=== PATIENT | female | born 1950 | race Caucasian/White ===

== ENCOUNTER 2019-06-13 11:03 | Day surgery (SDC) | payer MEDICARE, SELFPAY ==
[2019-06-10 11:01] VITALS: BMI 26.1
[2019-06-13 11:33] VITALS: BP 147/88; PULSE 79; RESP 18; TEMP 36.5; O2SAT 99
[2019-06-13] MEDS: sodium chloride 0.9% 1,000 ML 30 ML (11:42)
--- NOTE | 2019-06-13 12:28 | ANES.PREANES ---
Pre-Anesthetic Assessment Pre-Anesthetic Assessment: Height/Weight: Height 1.68 m Weight 73.482 kg Temp Pulse Resp BP Pulse Ox 97.7 F 79 18 147/88 99 06/13/19 11:33 06/13/19 11:33 06/13/19 11:33 06/13/19 11:33 06/13/19 11:33 Proposed Procedure: Operation Date: 06/13/19 12:00 Proposed Procedures p Colonoscopy(Not Applicable) - Mark Crandall MD Last intake: Intake Last Liquid Date 06/12/19 Last Liquid Time 20:00 Last Solid Date 06/11/19 Last Solid Time 17:00 Social: Social History: Tobacco Packs per day: 1/2 Exam: Pre-Anes Outpt Exam: alert, oriented x 3, clear to auscultation bilaterally and regular rate & rhythm Airway: Submandibular: WNL Cervical ROM: WNL MP: 2 Dentition: False History/ROS: No significant history except as noted Pulmonary: Pulmonary: None reported CV/HEM: CV/HEM: None reported : : None reported Hepatic: Hepatic: None reported GI: GI: None reported Metabolic: Metabolic: None reported Musc/skel: Musc/skel: Fibromyalgia and OA/DJD Comments: hip pain Neuropsych: Neuropsych: Anxiety Anesthetic Plan: ASA status: II Anesthesia: Anesthesia Evaluation and MAC Risk of > 500 ml blood loss (7ml/kg in children): No PFSH Anesthesia PFSH: Medical History Occult blood positive stool (Acute) Plan of care; After thorough history and physical examination and reviewing the chart, plan to perform screening colonoscopy in the GI lab All questions have been answered and all concerns have been addressed to patient's satisfaction. Informed consent per chart were,Indications, risks, benefits, and alternatives were all discussed with the patient and did agree to proceed. Verbal and written Instructions were given to the patient for colonoscopy prep Social History Smoking and tobacco status: current every day smoker cigarettes Packs smoked per day: 1 Years cigarettes smoked: 30 Quit status (tobacco): not considering quitting Second hand smoke exposure: Yes Smoking risk assessment/counseling performed?: No Data Anesthesia Cardiac Studies: No Data to Display
[2019-06-13 12:55] VITALS: BP 145/69; PULSE 79; RESP 16; TEMP 36.1; O2SAT 99
[2019-06-13 13:01] VITALS: BP 157/65; PULSE 64; RESP 18; O2SAT 100
--- NOTE | 2019-06-13 13:18 | ANE.PACU ---
 Inpatient post-anesthesia follow up: Vital signs: Temperature 97.0 F Pulse Rate [Left A pical] 64 Respiratory Rate 18 Blood Pressure [Le ft Arm] 157/65 Pulse Oximetry 100 Oxygen Delivery Me thod Room Air Oxygen Flow Rate Fraction of Inspir ed Oxygen
--- NOTE | 2019-06-13 13:28 | PM.HPUD ---
H&P update H&P Update: DATE OF SURGERY/PROCEDURE: 06/13/19 DATE H&P PERFORMED: 06/13/19 H&P UPDATE INFORMATION: H&P to be scanned into chart (04/18/19) PLANNED PROCEDURE: Operation Date: 06/13/19 12:00 Proposed Procedures p Colonoscopy(Not Applicable) - Mark Crandall MD Conscious Sedation: Patient reassessed prior to sedation, with no change noted: Yes PHYSICAL EXAM: oriented x 3 Full H&P HPI: HPI: This is a pleasant 69 years old female patient with history of occult blood in stool was referred to mt for screening colonoscopy. Perinent History: Medical/Surgical History: Medical History (Updated 06/13/19 @ 12:14 by Mark Crandall MD) Occult blood positive stool (Acute) Plan of care; After thorough history and physical examination and reviewing the chart, plan to perform screening colonoscopy in the GI lab All questions have been answered and all concerns have been addressed to patient's satisfaction. Informed consent per chart were,Indications, risks, benefits, and alternatives were all discussed with the patient and did agree to proceed. Verbal and written Instructions were given to the patient for colonoscopy prep Social History: Social History Smoking and tobacco status: current every day smoker cigarettes Packs smoked per day: 1 Years cigarettes smoked: 30 Quit status (tobacco): not considering quitting Second hand smoke exposure: Yes Smoking risk assessment/counseling performed?: No Pertinent Exam Findings: PHYSICAL EXAM: oriented x 3 OTHER PERTINENT EXAM FINDINGS: Patient is conscious alert oriented X3 Abdomen nontender nondistended soft no organomegaly guarding or rigidity/no signs of peritonitis Extremities no cyanosis no clubbing no edema A&P Assessment and plan (1) Occult blood positive stool: Status: Acute Code(s): R19.5 - Other fecal abnormalities
[2019-06-13 13:35] VITALS: RESP 16; O2SAT 97
[2019-06-13] MEDS: morphine 4 mg/mL SDV 1 mL IVP (13:35)
== END 2019-06-13 13:03 | disposition home or self-care (01) ==
PROVIDERS: Family Provider Registered Nurse; PCP Registered Nurse; Visit Provider Surgery
PROC: 0DJD8ZZ Inspection of Lower Intestinal Tract, Via Natural or Artificial Opening Endoscopic (ICD-10-PCS; CPT 45378; principal; 2019-06-13 12:00)
DX: Z12.11 Encounter for screening for malignant neoplasm of colon (principal); R19.5 Other fecal abnormalities; K57.30 Diverticulosis of large intestine without perforation or abscess without bleeding; D12.3 Benign neoplasm of transverse colon; M19.90 Unspecified osteoarthritis, unspecified site; F17.210 Nicotine dependence, cigarettes, uncomplicated; M79.7 Fibromyalgia; G47.00 Insomnia, unspecified
CPT/HCPCS: 45385; 88305; J2270; J2704; J7030

== ENCOUNTER → 2019-12-16 10:43 | Outpatient (BNVA) | payer MEDICARE, SELFPAY | PROVIDERS: Family Provider Registered Nurse; PCP Registered Nurse; Visit Provider Registered Nurse | DX: G47.00 Insomnia, unspecified (principal); E55.9 Vitamin D deficiency, unspecified; I10 Essential (primary) hypertension; E53.8 Deficiency of other specified B group vitamins | CPT/HCPCS: 82306; 82607; 85025 ==

== ENCOUNTER 2020-05-18 16:08 | Observation (INO) | payer MEDICARE, SELFPAY ==
[2020-05-18] VITALS (9 sets, daily range): BP systolic 116–209; BP diastolic 58–106; PULSE 65–84; RESP 14–18; TEMP 36.4–36.6; O2SAT 93–99; BMI 26.6
--- NOTE | 2020-05-18 16:37 | ECG_ITS ---
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 Measurements Intervals [place] Rate: 75 P: 56 RI: 141 QRS: 32 QRSD: 82 T: -4 QT: 388 QTc: 435 Interpretive Statements SINUS RHYTHM WITH SINUS ARRHYTHMIA POSSIBLE LEFT ATRIAL ENLARGEMENT [-0.1mV P WAVE IN V1/V2] NONSPECIFIC ST & T-WAVE ABNORMALITY No previous ECG available for comparison Electronically Signed On 05-18-2020 20:54:56 MANUFACTURING PLANT TECHNICIAN by Corona Gagnon M.D. [id number]
--- NOTE | 2020-05-18 16:37 | CTR_ITS ---
PROCEDURE INFORMATION: Exam: CT Head Without Contrast Exam date and time: 05/18/2020 5:59 PM Age: 70 years old Clinical indication: Altered mental status/memory loss and dizziness; Confusion or disorientation; Patient HX: C/O dizziness and confusion PT is hypertensive; Additional info: Dizzy, confused TECHNIQUE: Imaging protocol: Computed tomography of the head without contrast. Radiation optimization: All CT scans at this facility use at least one of these dose optimization techniques: automated exposure control; mA and/or kV adjustment per patient size (includes targeted exams where dose is matched to clinical indication); or iterative reconstruction. COMPARISON: No relevant prior studies available. RADIATION DOSE METRICS: Total DLP (mGy-cm): 723.21 FINDINGS: Brain: No evidence of active or acute intracranial pathologic process, hemorrhage, or trauma. No visible evidence of diffuse cerebral edema or generalized demyelination. No mass effect. No midline shift. No visible evidence of PRES. Cerebral ventricles: No ventriculomegaly. Bones/joints: Unremarkable. No acute fracture. Paranasal sinuses: Mild sphenoid sinusitis. Mastoid air cells: Visualized mastoid air cells are well aerated. Soft tissues: Unremarkable. CT/CT head wo con* [id number] IMPRESSION: 1. No evidence of active or acute intracranial pathologic process, hemorrhage, or trauma. 2. Mild sphenoid sinusitis. Radiation Dose CTDIVOL = (mGy): DLP = 723.21 (mGy-cm)
--- NOTE | 2020-05-18 16:53 | W.ED.DIZZY ---
HPI - Dizziness General: Chief Complaint: Dizziness Stated Complaint: DIZZY, NEURO SYMPTOMS Time Seen by Provider: 05/18/20 16:34 History of Present Illness: HPI Narrative: This patient is a 70 year old female presenting with abrupt onset on dizziness, confusion, trouble walking, trouble remembering since about 10 am this morning. She denies headaches, fever, nausea, chest pain or lightheadedness. the symptoms have been fairly constant since they started. 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 She was not able to remember phone numbers that she normally would know. She did not notice any difficulty with coordination. She is having trouble walking and her daughter who is with her says she is walking like she is drunk. Falling more to the left. Patient denies stoke, CAD, HTN although she is hypertensive today in the ED. She take vit D and ambien as her only prescription medications. Neither of them are new scripts. She wore a holter monitor for a while about 7 years ago when she had episodes of passing out - but nothing was found and the episodes stopped. Review of prior records shows that she has had elevated BPs. She had an office visit [facility] PCP in December with elevated BP and her doctor wanted her to monitor it at home. Patient is also a smoker. MD elicited complaint: dizziness and difficulty walking Onset (ago): hour(s) (7) Timing: sudden onset Severity: moderate Description: room spinning , off-balance and difficulty walking History of similar symptoms: No Exacerbating factors: movement/ambulation Relieving factors: nothing Associated symptoms: Reports other; Denies chest pain, chills, malaise, nausea or vomiting Associated neuro symptoms: Reports confusion and gait changes Review of Systems General: Reports: 10 or more systems reviewed and unremarkable except in HPI and below Const: Denies: fever(s), chills, fatigue or malaise Eyes: Denies: change in vision ENMT: Denies: odynophagia Card: Denies: chest pain or swelling of feet/ankles Resp: Denies: dyspnea, productive cough or non-productive cough GI: Denies: abdominal pain, nausea or vomiting : Denies: flank pain or difficulty voiding Musc: Denies: neck pain or back pain Skin/Breast: Denies: rash Neuro: Reports: confusion Craig/Lymph: Denies: easy bruising or easy bleeding PFSH ED PFSH: Medical History Essential hypertension Fibromyalgia Hyperlipidemia Hypertension Insomnia Occult blood positive stool Vitamin B 12 deficiency Vitamin D deficiency Surgical History History of breast lump/mass excision History of colonoscopy with polypectomy (~06/2019) Hx of appendectomy Family History Denies family history of Anesthesia complication Bleeding disorder Social History Smoking and tobacco status: current every day smoker cigarettes Packs smoked per day: 1 Years cigarettes smoked: 30 Quit status (tobacco): not considering quitting Second hand smoke exposure: Yes Smoking risk assessment/counseling performed?: No Alcohol intake: never Adopted: No Caregiver/support person: Yes Lives independently: Yes Household members: spouse Housing: House Marital status: Highest education level completed: High School Graduate service: No Current occupational status: retired Current occupational exposures/hazards: No Pets and animals: Yes History of recent travel: Yes Sexually active: Yes Current gender identity: Female Laila/Temple: Rastafarian Special laila needs: No Agree to transfusion: No Financial difficulty paying for basics: Decline to Answer Physical Exam Const: COMMON NORMALS: no acute distress, patient oriented x3, no limitations and alert GENERAL APPEARANCE: cooperative and comfortable HENMT: HEAD & SCALP: normal to inspection FACE & SINUS: normal facial exam Eye: GENERAL EYE: appearance normal, both eyes and all related structures Neck/C-Spine: COMMON NORMALS: supple, no meningeal signs and no JVD Chest: COMMONS NORMALS: normal inspection of the chest Resp: COMMON NORMALS: normal respiratory effort, No use of accessory muscles and clear to auscultation bilaterally AUSCULTATION: clear to auscultation bilaterally Cardio: COMMON NORMALS: no JVD, regular rate, regular rhythm and No murmurs present (Cardio) RATE: regular rate RHYTHM: regular rhythm GI: COMMON NORMALS: Normal to inspection, nondistended, normoactive bowel sounds present, Soft to palpation and non-tender INSPECTION: Yes normal to inspection AUSCULTATION: Yes normoactive bowel sounds PALPATION: Yes Soft to palpation Back/Pelvis: COMMON NORMALS: thoracic and lumbar spine normal to inspection Extremity: COMMON NORMALS: normal to inspection Neuro: COMMON NORMALS: patient oriented x3 and moves all extremities SENSORIUM/ORIENTATION: Yes alert MENINGEAL SIGNS: Yes no meningeal signs COORDINATION/BALANCE: sways with eyes open, Romberg test positive and other (unable to stand without assistance - falls backwards) SPEECH: Other neuro speech findings (rambling a bit) GAIT: Yes Other gait observations present (unable ) Psych: COMMON NORMALS: mental status grossly normal, cooperative and normal affect Skin: COMMON NORMALS: no rashes or lesions noted and turgor normal GENERAL SKIN EXAM: no rashes or lesions noted and turgor normal Course ED course: Patient with marked ataxia -concerning for cerebellar stroke. CT neg. Many hours out of the window for TPA. BP also quite high and not improved with several doses of labetolol. Hydralazine ordered. Patient reluctant to stay in the hospital, but due to concerns for BP management, stroke and inability to ambulate safely, she eventually agreed to stay. Admit to hospitalist. Vital Signs: Vital signs: Vital Signs Temperature 97.6 F 05/18/20 21:37 Pulse Rate 72 05/18/20 23:28 Respiratory Rate 18 05/18/20 21:37 Blood Pressure 116/58 05/18/20 21:37 Pulse Oximetry 95 05/18/20 21:37 MDM - Dizziness Lab Data: Labs: Lab Results 05/18/20 05/18/20 05/18/20 Range/Units 16:39 17:14 17:14 WBC 8.4 (4.0-10.0) 10^3/ uL RBC 4.58 (4.1-5.3) 10^6/u L Hgb 13.2 (11.5-15.3) g/dL Hct 41.9 (37.0-47.0) % MCV 91.5 (81-99) fL MCH 28.8 (28.0-34.0) pg MCHC 31.5 (30.0-36.0) g/dL RDW 13.3 (12.1-15.1) % Plt Count 292 (130-400) 10^3/c mm MPV 11.7 H (7.4-10.4) fL Neut % (Auto) 71.8 % Lymph % (Auto) 20.8 % Duchesne % (Auto) 5.5 % Eos % (Auto) 1.1 % Baso % (Auto) 0.6 % Neut # (Auto) 6.01 (1.8-7.7) 10^3/u L Lymph # (Auto) 1.7 (0.8-4.8) 10^3/u L Duchesne # (Auto) 0.5 (0.2-0.9) 10^3/u L Eos # (Auto) 0.1 (0.0-0.8) 10^3/u L Baso # (Auto) 0.1 (0.0-0.1) 10^3/u L Nucleated RBC % (a uto) 0 % Nucleated RBCs # 0.0 /100WBC Sodium 140 (136-145) mmol/L Potassium 3.9 (3.5-5.1) mmol/L Chloride 105 (98-107) mmol/L Carbon Dioxide 26 (22-29) mmol/L Anion Gap 12.9 (5-19) BUN 9 (8-23) mg/dL Creatinine 0.6 (0.5-0.9) mg/dL GFR Calculation 99.4 (90-130) mL/min Glucose 95 (65-115) mg/dL Calculated Osmolal ity 288 (285-295) mOsm/k g Calcium 9.5 (8.5-10.5) mg/dL Total Bilirubin 0.3 (0.15-1.2) mg/dL AST 13 (0-32) U/L ALT 8 (0-33) U/L Alkaline Phosphata se 87 (35-105) IU/L Troponin T Baselin e (0-10) ng/L Troponin T [address] [facility] [place] (0-10) ng/L Delta Troponin T (0-10) ABS# Total Protein 7.5 (6.6-8.7) g/dL Albumin 4.1 (3.5-5.2) g/dL Globulin 3.4 (1.3-4.6) g/dL TSH (0.27-4.20) uIU/ mL Urine Color Colorless (Yellow) Urine Appearance Clear (CLEAR) Urine pH 7 (5-7) Ur Specific Gravit y 1.005 (1.005-1.030) Urine Protein Neg (Negative) Urine Glucose (UA) Norm (Normal) Urine Ketones Negative (Negative) Urine Blood Neg (Negative) Urine Nitrate Negative (Negative) Urine Bilirubin Neg (Negative) Urine Urobilinogen Norm (Negative) mg/dL Ur Leukocyte Yelena ase Negative (Negative) 05/18/20 05/18/20 05/18/20 Range/Units 17:14 17:14 20:01 WBC (4.0-10.0) 10^3/ uL RBC (4.1-5.3) 10^6/u L Hgb (11.5-15.3) g/dL Hct (37.0-47.0) % MCV (81-99) fL MCH (28.0-34.0) pg MCHC (30.0-36.0) g/dL RDW (12.1-15.1) % Plt Count (130-400) 10^3/c mm MPV (7.4-10.4) fL Neut % (Auto) % Lymph % (Auto) % Duchesne % (Auto) % Eos % (Auto) % Baso % (Auto) % Neut # (Auto) (1.8-7.7) 10^3/u L Lymph # (Auto) (0.8-4.8) 10^3/u L Duchesne # (Auto) (0.2-0.9) 10^3/u L Eos # (Auto) (0.0-0.8) 10^3/u L Baso # (Auto) (0.0-0.1) 10^3/u L Nucleated RBC % (a uto) % Nucleated RBCs # /100WBC Sodium (136-145) mmol/L Potassium (3.5-5.1) mmol/L Chloride (98-107) mmol/L Carbon Dioxide (22-29) mmol/L Anion Gap (5-19) BUN (8-23) mg/dL Creatinine (0.5-0.9) mg/dL GFR Calculation (90-130) mL/min Glucose (65-115) mg/dL Calculated Osmolal ity (285-295) mOsm/k g Calcium (8.5-10.5) mg/dL Total Bilirubin (0.15-1.2) mg/dL AST (0-32) U/L ALT (0-33) U/L Alkaline Phosphata se (35-105) IU/L Troponin T Baselin e 6 (0-10) ng/L Troponin T [address] [facility] [place] 6.00 (0-10) ng/L Delta Troponin T 0 (0-10) ABS# Total Protein (6.6-8.7) g/dL Albumin (3.5-5.2) g/dL Globulin (1.3-4.6) g/dL TSH 1.25 (0.27-4.20) uIU/ mL Urine Color (Yellow) Urine Appearance (CLEAR) Urine pH (5-7) Ur Specific Gravit y (1.005-1.030) Urine Protein (Negative) Urine Glucose (UA) (Normal) Urine Ketones (Negative) Urine Blood (Negative) Urine Nitrate (Negative) Urine Bilirubin (Negative) Urine Urobilinogen (Negative) mg/dL Ur Leukocyte Yelena ase (Negative) Discharge Plan Discharge Patient Disposition: Placed in Observation Admit Provider: Silverio Hopson Clinical Impression: Dizziness Hypertension Qualifiers: Hypertension type: unspecified Qualified Code(s): I10 - Essential (primary) hypertension Coding Level of Care Code ED Info Specialist for Chg Fwd Exam Comprehensive
[2020-05-18] MEDS: sodium chloride 0.9% 1,000 ML 999 ML IV (17:23)
[2020-05-18] MEDS: labetalol 5 mg/mL SDV 20mL 10 MG IVP ×2 (17:24→18:29)
[2020-05-18 17:27] LABS: Basophils # 0.1 10^3/uL (0.0-0.1); Basophils % 0.6 %; Eosinophils # 0.1 10^3/uL (0.0-0.8); Eosinophils % 1.1 %; Hematocrit 41.9 % (37.0-47.0); Hemoglobin 13.2 g/dL (11.5-15.3); Lymphocytes # 1.7 10^3/uL (0.8-4.8); Lymphocytes % 20.8 %; Mean Corpuscular HGB Conc 31.5 g/dL (30.0-36.0); Mean Corpuscular Hemoglobin 28.8 pg (28.0-34.0); Mean Corpuscular Volume 91.5 fL (81-99); Mean Platelet Volume 11.7 fL (7.4-10.4); Monocytes # 0.5 10^3/uL (0.2-0.9); Monocytes % 5.5 %; Neutrophils # 6.01 10^3/uL (1.8-7.7); Neutrophils % 71.8 %; Nucleated Red Blood Cells % 0 %; Platelet Count 292 10^3/cmm (130-400); Red Blood Count 4.58 10^6/uL (4.1-5.3); Red Cell Distribution Width 13.3 % (12.1-15.1); White Blood Count 8.4 10^3/uL (4.0-10.0)
[2020-05-18 17:44] LABS: Add Urine Microscopic? NO; Bilirubin Urine Neg (Negative); Blood Urine Neg (Negative); Glucose Urine UA Norm (Normal); Ketones Urine Negative (Negative); Leukocyte Esterase Urine Negative (Negative); Nitrate Urine Negative (Negative); Protein Urine Neg (Negative); Specific Gravity, Urine 1.005 (1.005-1.030); Urine Appearance Clear (CLEAR); Urine Color Colorless (Yellow); Urobilinogen Urine Norm (Negative); pH Urine 7 (5-7)
[2020-05-18 17:48] LABS: Alanine Aminotransferase 8 U/L (0-33); Albumin Level 4.1 g/dL (3.5-5.2); Alkaline Phosphatase 87 IU/L (35-105); Anion Gap 12.9 (5-19); Aspartate Amino Transferase 13 U/L (0-32); Blood Urea Nitrogen 9 mg/dL (8-23); Calcium 9.5 mg/dL (8.5-10.5); Carbon Dioxide 26 mmol/L (22-29); Chloride 105 mmol/L (98-107); Globulin 3.4 g/dL (1.3-4.6); Glomerular Filtration Rate 99.4 mL/min (90-130); Glucose 95 mg/dL (65-115); Osmolality Calculated 288 mOsm/kg (285-295); Potassium 3.9 mmol/L (3.5-5.1); Sodium 140 mmol/L (136-145); Total Bilirubin 0.3 mg/dL (0.15-1.2); Total Protein 7.5 g/dL (6.6-8.7); Troponin(5th) Baseline 6 ng/L (0-10)
--- NOTE | 2020-05-18 18:37 | ECG_ITS ---
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 Measurements Intervals [place] Rate: 72 P: 60 MN: 146 QRS: 37 QRSD: 86 T: 5 QT: 430 QTc: 473 Interpretive Statements SINUS RHYTHM WITH OCCASIONAL VENTRICULAR PREMATURE COMPLEXES POSSIBLE LEFT ATRIAL ENLARGEMENT [-0.1mV P WAVE IN V1/V2] NONSPECIFIC T-WAVE ABNORMALITY Compared to ECG 05/18/2020 16:47:32 Ventricular premature complex(es) now present Sinus arrhythmia no longer present T-wave abnormality still present Electronically Signed On 05-18-2020 20:59:00 VIDEO TAPE DUPLICATOR by Corona Gagnon M.D. [email or web address]/[id number]
[2020-05-18] MEDS: labetalol 5 mg/mL SDV 20mL 20 MG IVP (19:31)
[2020-05-18 20:24] LABS: Troponin 5 2HR Delta 0 ABS# (0-10)
[2020-05-18] MEDS: hyDRALAzine 20 mg/mL INJ 1 mL IVP (20:30)
--- NOTE | 2020-05-18 20:32 | PM.HP ---
Providers/Chief Complaint Primary Care Provider: TRACY Villa Chief Complaint: DIZZY, NEURO SYMPTOMS History of Present Illness Indigo Rosenberg is a 70 year old female who has history of B12 deficiency, hypertension, fibromyalgia, nicotine abuse presented today with chief complaint of dizziness. Patient works at [employer], he is stating that around 10 AM she started feeling dizziness which she is describing as lightheadedness she did not notice any surroundings of her periphery. She did not notice any nausea, vomiting, she does state that few days back she noticed some palpitations when she was trying to get out of bed, previous Holter monitor did not show any tachyarrhythmia. 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 She did not lost consciousness, she did not notice any diaphoresis, fever, chills, headache, worsening of her vision. She described her symptoms as floating with eyes open and swimming with eyes closed . No recent flulike symptoms however she has history of sinus infection. Diagnosis in the ER revealed hypertension, she received antihypertensive regimen, labetalol 40 mg hydralazine 20 mg and 1 L normal saline bolus. NIH 0 At the time of my evaluation Romberg sign positive, Kathya-Hallpike maneuver negative, no cerebellar signs, no signs of stroke, patient agreed for MRI brain evaluation to rule out cerebellar stroke Review of Systems Const: Reports: chills; Denies: fever(s) Eyes: Denies: change in vision ENMT: Denies: throat pain Card: Reports: palpitations and pre-syncope Resp: Denies: dyspnea GI: Denies: abdominal pain : Denies: flank pain Musc: Reports: neck pain Skin/Breast: Denies: rash Neuro: Denies: headache(s) Psych: Denies: anxiety Endo: Denies: polyuria Craig/Lymph: Denies: easy bruising All/Imm: Denies: urticaria Medications/Allergies Home Medications Medication Instructions Recorded Confirmed Last Taken Type alendronate [Fosamax] See Rx Instructions .ROUTE .COMPLEX 06/10/19 05/18/20 06/07/19 History ergocalciferol (vitamin D2) 1,250 See Rx Instructions .ROUTE 12/19/19 05/18/20 05/15/20 Rx mcg (50,000 unit) capsule .COMPLEX #12 cap Vitamin C 1 tab PO DAILY@0800 05/18/20 05/18/20 05/18/20 History zinc 1 tab PO DAILY@0800 05/18/20 05/18/20 05/18/20 History zolpidem 10 mg PO BEDTIME@00 05/18/20 05/18/20 05/18/20 History Allergies Allergy/AdvReac Type Severity Reaction Status Date / Time No Known Allergies Allergy Verified 12/16/19 10:27 PFSH Acute PFSH: Medical History Essential hypertension Fibromyalgia Hyperlipidemia Hypertension Insomnia Occult blood positive stool Vitamin B 12 deficiency Vitamin D deficiency Surgical History History of breast lump/mass excision History of colonoscopy with polypectomy (~06/2019) Hx of appendectomy Family History Denies family history of Anesthesia complication Bleeding disorder Social History Smoking and tobacco status: current every day smoker cigarettes Packs smoked per day: 1 Years cigarettes smoked: 30 Quit status (tobacco): not considering quitting Second hand smoke exposure: Yes Smoking risk assessment/counseling performed?: No Alcohol intake: never Adopted: No Caregiver/support person: Yes Lives independently: Yes Household members: spouse Housing: House Marital status: Highest education level completed: High School Graduate service: No Current occupational status: retired Current occupational exposures/hazards: No Pets and animals: Yes History of recent travel: Yes Sexually active: Yes Current gender identity: Female Laila/Pentecostal: Bahai Special laila needs: No Agree to transfusion: No Financial difficulty paying for basics: Decline to Answer Vitals/I&O/Wt Last Vital Signs Temp 97.8 F 05/18/20 16:20 Pulse 65 05/18/20 19:53 Resp 18 05/18/20 19:53 BP 183/86 05/18/20 19:53 Pulse Ox 95 05/18/20 19:53 05/18/20 05/18/20 05/18/20 06:59 14:59 22:59 Intake Total 1000 / 1000 Balance 1000 / 1000 Weight last 48 hrs Weight 74.843 kg Physical Exam Narrative: EXAM NARRATIVE: Very pleasant elderly female who appears more than stated age Clinically looks euvolemic No active distress noted NIH 0 No cerebellar signs Romberg sign positive Exline-Hallpike maneuver negative No facial asymmetry or neurological deficit noted EOMI, PERRLA Awake alert oriented x3 GCS 15 S1, S2 do not appreciate any murmur Bilateral breath sounds without any rhonchi or crackles Abdomen soft nontender bowel sound present Lower extremity no edema gangrene ulcer Appropriate mood and affect Data : 05/18/20 17:14 05/18/20 17:14 A&P Assessment and plan (1) Essential hypertension: Status: Acute (2) Dizziness: Status: Acute (3) Romberg's test positive: Status: Acute (4) Vitamin B 12 deficiency: Status: Acute Additional A&P Information Dizziness Patient is describing as lightheadedness, she is also endorsing palpitations, currently she is in sinus rhythm previous Holter monitoring did not reveal any tachyarrhythmia, will obtain TSH, MRI in the morning left cerebellar infarct however she also has Romberg/s sign positive No focal sign No nystagmus noted Exline-Hallpike maneuver negative Would not need physical therapy or speech evaluation I do believe vitamin B12 deficiency in the past has a role to play with neuronal damage of lower extremities however at this point her vitamin B12 seems to be adequate Consider cervical spine CT for complete work-up in the morning Essential hypertension She has multiple dose of antihypertensives, closely monitor her blood pressure, I will add lisinopril and amlodipine, 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 50mins Coding Level of Care Code Acute Methane Gas Collection System Operator for Chg Fwd Diagnoses Essential hypertension I10 Dizziness R42 Romberg's test positive R29.818 Vitamin B 12 deficiency E53.8
[2020-05-18 22:55] LABS: Thyroid Stimulating Hormone 1.25 uIU/mL (0.27-4.20)
--- NOTE | 2020-05-18 23:45 | ECG_ITS ---
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1950 Requested By: Silverio Hopson Order Number: [id number] Reading MD: SILVERIO KEANE Measurements Intervals [place] Rate: 75 P: 62 [place]: 140 QRS: 58 QRSD: 81 T: 68 QT: 396 QTc: 443 Interpretive Statements SINUS RHYTHM WITH OCCASIONAL VENTRICULAR PREMATURE COMPLEXES POSSIBLE LEFT ATRIAL ENLARGEMENT [-0.1mV P WAVE IN V1/V2] ST DEVIATION AND MODERATE T-WAVE ABNORMALITY, CONSIDER LATERAL ISCHEMIA [-0.1+ mV T WAVE IN I/aVL/V5/V6] Compared to ECG 05/18/2020 18:25:51 Possible ischemia now present T-wave abnormality still present Electronically Signed On 05-19-2020 18:55:11 HEATER TENDER by SILVERIO KEANE [email or web address]
[2020-05-19] VITALS (9 sets, daily range): BP systolic 125–174; BP diastolic 58–78; PULSE 68–93; RESP 15–20; TEMP 36.4–37.1; O2SAT 93–95
[2020-05-19 02:08] LABS: Vitamin B12 690 pg/mL (232-1245)
--- NOTE | 2020-05-19 03:00 | ECG_ITS ---
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: : 1950 Requested By: Silverio Hopson Order Number: [id number] Reading MD: SILVERIO KEANE Measurements Intervals [place] Rate: 74 P: 152 NM: 140 QRS: 156 QRSD: 82 T: 154 QT: 400 QTc: 446 Interpretive Statements SINUS RHYTHM ARM LEADS REVERSED [INVERTED P AND QRS IN I] ATYPICAL ECG Compared to ECG 05/18/2020 23:59:29 Ventricular premature complex(es) no longer present T-wave abnormality no longer present Possible ischemia no longer present Electronically Signed On 05-19-2020 18:55:50 STEEL RIGGER by SILVERIO KEANE [id number]
[2020-05-19] MEDS: amlodipine 10 mg Tablet PO (08:28)
--- NOTE | 2020-05-19 11:26 | CTR_ITS ---
PROCEDURE INFORMATION: Exam: CT Angiography Head With Contrast Exam date and time: 05/19/2020 2:11 PM Age: 70 years old Clinical indication: Dizziness and giddiness; Additional info: Dizziness, possible external carotid occlusion TECHNIQUE: Imaging protocol: Computed tomography angiography of the head with intravenous contrast. 3D rendering (Not supervised by radiologist): MIP and/or 3D reconstructed images were created by the technologist. Radiation optimization: All CT scans at this facility use at least one of these dose optimization techniques: automated exposure control; mA and/or kV adjustment per patient size (includes targeted exams where dose is matched to clinical indication); or iterative reconstruction. Contrast material: OMNIPAQUE 350; Contrast volume: 95 ml; Contrast route: INTRAVENOUS (IV); COMPARISON: CT head wo con* [id number] 05/18/2020 5:59 PM RADIATION DOSE METRICS: Total DLP (mGy-cm): 1827.91 FINDINGS: ANTERIOR CIRCULATION: Right internal carotid artery: Unremarkable. Intracranial segment is patent with no significant stenosis. No aneurysm. Right middle cerebral artery: Unremarkable. No occlusion or significant stenosis. No aneurysm. Right anterior cerebral artery: Unremarkable. No occlusion or significant stenosis. No aneurysm. Left internal carotid artery: Unremarkable. Intracranial segment is patent with no significant stenosis. No aneurysm. Left middle cerebral artery: Unremarkable. No occlusion or significant stenosis. No aneurysm. Left anterior cerebral artery: Unremarkable. No occlusion or significant stenosis. No aneurysm. POSTERIOR CIRCULATION: Right vertebral artery: Unremarkable. No occlusion or significant stenosis. No aneurysm. Left vertebral artery: Unremarkable. No occlusion or significant stenosis. No aneurysm. Basilar artery: Unremarkable. No occlusion or significant stenosis. No aneurysm. Right posterior cerebral artery: Unremarkable. No occlusion or significant stenosis. No aneurysm. Left posterior cerebral artery: Unremarkable. No occlusion or significant stenosis. No aneurysm. IMPRESSION: No significant intracranial vascular abnormality identified. PROCEDURE INFORMATION: Exam: CT Angiography Neck With Contrast Exam date and time: 05/19/2020 2:11 PM Age: 70 years old Clinical indication: Dizziness and giddiness; Additional info: Dizziness, possible external carotid occlusion TECHNIQUE: Imaging protocol: Computed tomography angiography of the neck with intravenous contrast. 3D rendering (Not supervised by radiologist): MIP and/or 3D reconstructed images were created by the technologist. Radiation optimization: All CT scans at this facility use at least one of these dose optimization techniques: automated exposure control; mA and/or kV adjustment per patient size (includes targeted exams where dose is matched to clinical indication); or iterative reconstruction. Contrast material: OMNIPAQUE 350; Contrast volume: 95 ml; Contrast route: INTRAVENOUS (IV); COMPARISON: CT head wo con* [id number] 05/18/2020 5:59 PM RADIATION DOSE METRICS: Total DLP (mGy-cm): 1827.91 FINDINGS: Right common carotid artery: No stenosis. No dissection or occlusion. Right internal carotid artery: There is mild less than 50% stenosis of the right proximal ICA. Right external carotid artery: No occlusion or stenosis of the origin. Right vertebral artery: No stenosis. No dissection or occlusion. Left common carotid artery: No stenosis. No dissection or occlusion. Left internal carotid artery: Calcified plaque causes moderate 50-69% stenosis of the left proximal ICA. Left external carotid artery: No occlusion or stenosis of the origin. Left vertebral artery: No stenosis. No dissection or occlusion. Soft tissues: An air-filled structure in the right neck likely reflects an air-filled 2nd branchial cleft cyst. Lymph nodes: Prominent upper mediastinal lymph nodes are nonspecific. Lungs: Pleuroparenchymal scarring is seen at the lung apices. Small cavitary nodules in the right lung apices are nonspecific. CT/CT angio headneck* [id number] IMPRESSION: 1. Moderate 50 69% stenosis of the left proximal ICA. 2. Mild less than 50% stenosis of the right proximal ICA. REFERENCES: NASCET CRITERIA. The degree of internal carotid artery stenosis is based on NASCET criteria. Normal is no stenosis. Mild is less than 50% stenosis. Moderate is 50-69% stenosis. Severe is 70% to 99% stenosis. Total occlusion is no detectable patent lumen. Radiation Dose CTDIVOL = (mGy): DLP = 1827.91~1827.91 (mGy-cm)
[2020-05-19] MEDS: aspirin 81 mg EC Tablet PO (12:26)
[2020-05-19 13:26] LABS: Chol HDL Ratio 3.94 mg/dL (0.0-4.40); Cholesterol 244 mg/dL (0-200); HDL Cholesterol 62 mg/dL (60-100); Iron 90 ug/dL (37-145); LDL Cholesterol Calculated 155 mg/dL (50-129); Percent Saturation 32.6 % (20-50); Total Iron Binding Capacity 276 mcg/dl; Triglycerides 137 mg/dL (0-150); Unsaturated Iron Binding 186 ug/dL (112-347); VLDL Cholestrol Calculation 27 mg/dL (0-30)
[2020-05-19] MEDS: iohexol 350 mg/mL 100 mL Btl IV (14:50)
--- NOTE | 2020-05-19 15:25 | PM.DCS ---
Discharge Providers Date of Admission: 05/18/20 20:33 Date of Discharge: May 19, 2020 Attending Provider at Admission: Silverio Hopson MD Attending Provider at Discharge: Arik Sampson MD Primary Care Provider: TRACY Villa Diagnoses at Discharge Discharge Diagnosis (1) Essential hypertension: Status: Acute (2) Dizziness: Status: Acute (3) Romberg's test positive: Status: Acute (4) Vitamin B 12 deficiency: Status: Acute (5) Carotid artery stenosis: Status: Acute Reason for Visit Reason for Visit: DIZZY, NEURO SYMPTOMS Hospital Course Hospital Course Indigo Rosenberg is a 70 year old female who has history of B12 deficiency, hypertension, fibromyalgia, nicotine abuse presented today with chief complaint of dizziness. Patient works at [employer], he is stating that around 10 AM she started feeling dizziness which she is describing as lightheadedness she did not notice any surroundings of her periphery. She did not notice any nausea, vomiting, she does state that few days back she noticed some palpitations when she was trying to get out of bed, previous Holter monitor did not show any tachyarrhythmia. 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 She did not lost consciousness, she did not notice any diaphoresis, fever, chills, headache, worsening of her vision. She described her symptoms as floating with eyes open and swimming with eyes closed . No recent flulike symptoms however she has history of sinus infection. Presentation to the ER patient was found to be in hypertensive urgency for which she was given multiple antihypertensives. She was admitted to the floors for further monitoring. The next morning patient's blood pressures were a lot better and her symptoms of dizziness were resolved. Patient was seen by physical therapy. Carotid ultrasound was done which showed moderate irregular atherosclerotic plaque in carotid bulbs and mild atherosclerotic plaque in internal carotid arteries bilaterally with likely high-grade stenosis in external carotid arteries bilaterally for which CTA head and neck was done and it was ruled out. Patient did not have any arrhythmia while admitted. It is believed patient symptoms are most likely because of hypertensive urgency. Lipid panel was elevated. She has been discharged on amlodipine and lisinopril along with aspirin and statin with advised to follow-up with her primary care provider within next 2 weeks and to repeat a BMP in next 2 weeks as well. Physical Exam Narrative: EXAM NARRATIVE: Very pleasant elderly female who appears more than stated age Clinically looks euvolemic No active distress noted NIH 0 No cerebellar signs Romberg sign positive Kathya-Hallpike maneuver negative No facial asymmetry or neurological deficit noted EOMI, PERRLA Awake alert oriented x3 GCS 15 S1, S2 do not appreciate any murmur Bilateral breath sounds without any rhonchi or crackles Abdomen soft nontender bowel sound present Lower extremity no edema gangrene ulcer Appropriate mood and affect Discharge Data Data Completed and Pending: Completed Studies During Hospitalization Category Date Time Status CT angio headneck * [id number] Urge nt Cat Scan 05/19/20 11:[address] head wo con* [id number] Stat Cat Scan 05/18/20 16:37 Completed CV carotid duplex BI* [id number] Routine Ultrasound 05/19/20 21:43 Completed Pending at discharge Category Date Time Status Hemoglobin A1C Ro utine Lab 05/20/20 04:00 Ordered MR head wo/w con [id number] Routine MRI 05/18/20 21:39 Ordered Labs from last 24 hours 05/19/20 05/18/20 05/18/20 12:07 20:01 17:14 WBC RBC Hgb Hct MCV MCH MCHC RDW Plt Count MPV Neut % (Auto) Lymph % (Auto) Bay % (Auto) Eos % (Auto) Baso % (Auto) Neut # (Auto) Lymph # (Auto) Bay # (Auto) Eos # (Auto) Baso # (Auto) Nucleated RBC % (a uto) Nucleated RBCs # Sodium Potassium Chloride Carbon Dioxide Anion Gap BUN Creatinine GFR Calculation Glucose Calculated Osmolal ity Calcium Iron 90 TIBC 276 % Saturation 32.6 Unsat Iron Binding 186 Total Bilirubin AST ALT Alkaline Phosphata se Troponin T Baselin e Troponin T 120 Min match-e-be-nash-she-wish band 6.00 Delta Troponin T 0 Total Protein Albumin Globulin Triglycerides 137 Cholesterol 244 H LDL Cholesterol, C alc 155 H Total VLDL Cholest tommie 27 HDL Cholesterol 62 Cholesterol/HDL Ra ángela 3.94 Vitamin B12 690 TSH 1.25 Urine Color Urine Appearance Urine pH Ur Specific Gravit y Urine Protein Urine Glucose (UA) Urine Ketones Urine Blood Urine Nitrate Urine Bilirubin Urine Urobilinogen Ur Leukocyte Yelena ase 05/18/20 05/18/20 05/18/20 17:14 17:14 17:14 WBC 8.4 RBC 4.58 Hgb 13.2 Hct 41.9 MCV 91.5 MCH 28.8 MCHC 31.5 RDW 13.3 Plt Count 292 MPV 11.7 H Neut % (Auto) 71.8 Lymph % (Auto) 20.8 Bay % (Auto) 5.5 Eos % (Auto) 1.1 Baso % (Auto) 0.6 Neut # (Auto) 6.01 Lymph # (Auto) 1.7 Bay # (Auto) 0.5 Eos # (Auto) 0.1 Baso # (Auto) 0.1 Nucleated RBC % (a uto) 0 Nucleated RBCs # 0.0 Sodium 140 Potassium 3.9 Chloride 105 Carbon Dioxide 26 Anion Gap 12.9 BUN 9 Creatinine 0.6 GFR Calculation 99.4 Glucose 95 Calculated Osmolal ity 288 Calcium 9.5 Iron TIBC % Saturation Unsat Iron Binding Total Bilirubin 0.3 AST 13 ALT 8 Alkaline Phosphata se 87 Troponin T Baselin e 6 Troponin T 120 Min match-e-be-nash-she-wish band Delta Troponin T Total Protein 7.5 Albumin 4.1 Globulin 3.4 Triglycerides Cholesterol LDL Cholesterol, C alc Total VLDL Cholest tommie HDL Cholesterol Cholesterol/HDL Ra ángela Vitamin B12 TSH Urine Color Urine Appearance Urine pH Ur Specific Gravit y Urine Protein Urine Glucose (UA) Urine Ketones Urine Blood Urine Nitrate Urine Bilirubin Urine Urobilinogen Ur Leukocyte Yelena ase 05/18/20 16:39 WBC RBC Hgb Hct MCV MCH MCHC RDW Plt Count MPV Neut % (Auto) Lymph % (Auto) Bay % (Auto) Eos % (Auto) Baso % (Auto) Neut # (Auto) Lymph # (Auto) Bay # (Auto) Eos # (Auto) Baso # (Auto) Nucleated RBC % (a uto) Nucleated RBCs # Sodium Potassium Chloride Carbon Dioxide Anion Gap BUN Creatinine GFR Calculation Glucose Calculated Osmolal ity Calcium Iron TIBC % Saturation Unsat Iron Binding Total Bilirubin AST ALT Alkaline Phosphata se Troponin T Baselin e Troponin T 120 Min match-e-be-nash-she-wish band Delta Troponin T Total Protein Albumin Globulin Triglycerides Cholesterol LDL Cholesterol, C alc Total VLDL Cholest tommie HDL Cholesterol Cholesterol/HDL Ra ángela Vitamin B12 TSH Urine Color Colorless Urine Appearance Clear Urine pH 7 Ur Specific Gravit y 1.005 Urine Protein Neg Urine Glucose (UA) Norm Urine Ketones Negative Urine Blood Neg Urine Nitrate Negative Urine Bilirubin Neg Urine Urobilinogen Norm Ur Leukocyte Yelena ase Negative Vitals: Last Vital Signs Temp 97.8 F 05/19/20 15:17 Pulse 70 05/19/20 15:17 Resp 17 05/19/20 15:17 BP 160/68 05/19/20 15:17 Pulse Ox 95 05/19/20 15:17 Discharge Plan Discharge Patient Disposition: Home Condition: Stable Prescriptions: New aspirin 81 mg Tablet,Delayed Release (Dr/Ec) 81 mg PO DAILY Qty: 30 RF: 0 amlodipine 10 mg Tablet 10 mg PO DAILY Qty: 30 RF: 0 atorvastatin 40 mg Tablet 40 mg PO BEDTIME Qty: 30 RF: 0 lisinopril 10 mg Tablet 20 mg PO DAILY Qty: 60 RF: 0 Continued ergocalciferol (vitamin D2) [Vitamin D2] 1,250 mcg (50,000 unit) capsule See Rx Instructions .ROUTE .COMPLEX Qty: 12 RF: 1 alendronate [Fosamax] 70 mg Tablet See Rx Instructions .ROUTE .COMPLEX RF: 0 Vitamin C 1 tab PO DAILY@0800 RF: 0 zinc 1 tab PO DAILY@0800 RF: 0 zolpidem 10 mg tablet 10 mg PO BEDTIME@00 RF: 0 Discharge Orders: Discharge Order (Routine); Ordered 05/19/20 Ordered By: Arik Sampson Referrals: Juliana Montiel FNP [Primary Care Provider] - 2 weeks Discharge Diet: Cardiac Discharge Activity: Resume usual activity Patient Instructions: Dizziness, Lisinopril (By mouth), Aspirin (By mouth), Amlodipine (By mouth), Atorvastatin (By mouth), Chronic Hypertension (DC) Activity Restrictions/Additional Instructions: Please follow-up with your primary care provider within next 2 weeks. Maintain blood pressure diary at home and follow-up with your primary care provider. You should have a repeat BMP in 2 weeks as lisinopril has been added to your medication list. Please take medications as prescribed daily. Discharge Attestations Time Spent in Discharge Care*: greater than 30 min Specific Discharge Activities: educating patient, discussing with cyanide case hardener/social workers/dc planners, documenting/other paperwork and evaluating patient/reviewing data Status at Discharge: Cognitive status at discharge: cognitively intact, Behavioral status at discharge: cooperative, Functional status at discharge: independent ambulation Overall status at discharge: patient is back to baseline Quality Metrics Clinical Quality Measures During this hospital stay, did patient experience: None Coding Level of Care Code Acute Philosophy Lecturer for Chg Fwd Diagnoses Essential hypertension I10 Dizziness R42 Romberg's test positive R29.818 Vitamin B 12 deficiency E53.8 Carotid artery stenosis I65.29
--- NOTE | 2020-05-19 21:43 | USR_ITS ---
PROCEDURE INFORMATION: Exam: US Duplex Bilateral Extracranial Arteries Exam date and time: 05/19/2020 6:18 AM Age: 70 years old Clinical indication: Dizziness; Patient HX: Smoker 1pk/day since teenager TECHNIQUE: Imaging protocol: Real-time Duplex ultrasound scan of the bilateral carotid and vertebral arteries combining robbins scale, color Doppler and spectral waveform analysis. Bilateral exam. COMPARISON: CT head wo con* [id number] 05/18/2020 5:59 PM FINDINGS: Right common carotid artery: Unremarkable. No occlusion or stenosis. Waveforms are normal. Right internal carotid artery: Right: Intimal thickening and moderate atherosclerotic plaque of the right carotid bulb. Peak systolic velocity of the right internal carotid artery 143.6 cm/second. Right ICA/CCA ratio: Within normal limits. Right external carotid artery: Prominent elevation of right external carotid artery at 312.9 cm per second. Right vertebral artery: Antegrade flow right vertebral artery. Left common carotid artery: Partially echogenic and probably partially calcified moderate atherosclerotic plaque of the left distal common carotid artery and left carotid bulb. Left internal carotid artery: Left: Peak systolic velocity of the left internal carotid artery midportion 205.1 cm/second. Left ICA/CCA ratio: Within normal limits. Left external carotid artery: Peak systolic velocity of the left external carotid artery 414.7 cm/second. Left vertebral artery: Antegrade flow left vertebral artery. Other findings: Peak systolic velocity within the right subclavian artery 194.6 cm/second. US/CV carotid duplex BI* [id number] IMPRESSION: 1. Moderate irregular atherosclerotic plaque of the carotid bulbs and mild atherosclerotic plaque of the internal carotid arteries bilaterally. 2. Potential stenosis right internal carotid artery 50-69% by flow velocity determination. Findings are felt more near the range of 50% stenosis. 3. Potential stenosis left internal carotid artery 50-69%. Findings likely more near 69% stenosis with higher flow velocity elevation as compared to the right. 4. Likely high-grade stenosis of the external carotid arteries bilaterally. REFERENCES: SRU CRITERIA. The degree of internal carotid artery stenosis is based on criteria defined by the Society of Radiologists in Ultrasound (SRU). Normal is no stenosis. Mild is less than 50% stenosis. Moderate is 50-69% stenosis. Severe is greater than 69% stenosis to near occlusion. Near occlusion is a markedly narrowed lumen. Total occlusion is no detectable patent lumen.
--- NOTE | 2020-05-21 13:40 | PC.RESP ---
Smoking Cessation information sent to patient.
== END 2020-05-19 16:19 | disposition home or self-care (01) ==
LOC: ER 16:34 → MEDSURG 20:41
PROVIDERS: Admitting Provider Internal Medicine; Emergency Provider Emergency Medicine; PCP Registered Nurse; Visit Provider Student in an Organized Health Care Education/Training Program
DX: I16.0 Hypertensive urgency (principal); R42 Dizziness and giddiness; I65.23 Occlusion and stenosis of bilateral carotid arteries; R29.818 Other symptoms and signs involving the nervous system; I10 Essential (primary) hypertension; E78.5 Hyperlipidemia, unspecified; E53.8 Deficiency of other specified B group vitamins; E55.9 Vitamin D deficiency, unspecified; M79.7 Fibromyalgia; F17.210 Nicotine dependence, cigarettes, uncomplicated
CPT/HCPCS: 12345; 70450; 70496; 70498; 80053; 80061; 81003; 82607; 83540; 83550; 84443; 84484; 85025; 93005; 93880; 96360; 96361; 96374; 96375; 96376; 97161; 99283; 99285; G0378; J0360; J3490; J7030; Q9967

== ENCOUNTER 2020-08-03 09:47 | Outpatient (CLI) | payer MEDICARE, SELFPAY ==
--- NOTE | 2020-08-03 10:15 | USCV_ITS ---
Indigo Rosenberg Age: 70 Gender: F : 1950 Exam Date: 08/03/2020 10:33 Ordering Phys: Kiran Gilbert MD (Andy) ([email or web address]) Technologist: Susan Bob [place] [facility] [place]: cardiac murmur BP: 120 / 56 HR: 71 Rhythm: Sinus Technical Quality: Adequate MEASUREMENTS (Male / Female) Normal Values 2D ECHO LV Diastolic Diameter PLAX 3.8 cm 4.2 - 5.9 / 3.9 - 5.3 cm LV Systolic Diameter PLAX 2.0 cm LV Chamber Size 3.0 cm IVS Diastolic Thickness 1.1 cm 0.6 - 1.0 / 0.6 - 0.9 cm IVS Systolic Thickness 1.7 cm LVPW Diastolic Thickness 2.1 cm 0.6 - 1.0 / 0.6 - 0.9 cm LVPW Systolic Thickness 2.0 cm RV Chamber Size 2.5 cm LVOT Diameter 2.0 cm LV Ejection Fraction 2D Teich 80.8 % LV Ejection Fraction MOD 2C 63.0 % LV Ejection Fraction 2C AL 63.5 % LA Diameter 4.0 cm LA Width 3.1 cm LA Height 3.8 cm RA Width 2.8 cm RA Height 4.2 cm Aorta at Sinotubular Diameter 2.2 cm M-MODE LV Diastolic Diameter MM 4.2 cm 4.2 - 5.9 / 3.9 - 5.3 cm LV Systolic Diameter MM 2.2 cm LV Ejection Fraction MM Teich 79.5 % IVS Diastolic Thickness MM 0.7 cm 0.6 - 1.0 / 0.6 - 0.9 cm IVS Systolic Thickness MM 1.2 cm LVPW Diastolic Thickness MM 0.9 cm 0.6 - 1.0 / 0.6 - 0.9 cm LVPW Systolic Thickness MM 1.3 cm Aortic Annulus Diameter 2.6 cm LA Ao Ratio MM 1.7 MV E Point Septal Separation 0.7 cm DOPPLER AV Peak Velocity 144.0 cm/s LVOT Peak Velocity 121.0 cm/s AV Area Cont Eq vti 2.6 cm squared AV Area Cont Eq pk 2.7 cm squared MV Area PHT 3.1 cm squared Mitral E to A Ratio 0.9 MV E' Velocity 53.0 cm/s Mitral E to MV E' Ratio 11.0 Mitral E to LV E' Lateral Ratio 11.8 Mitral E to LV E' Septal Ratio 10.3 TR Peak Velocity 271.5 cm/s TR Peak Gradient 29.5 mmHg TR Mean Velocity 192.5 cm/s TR Mean Gradient 20.0 mmHg TR Velocity Time Integral 105.8 cm TV Peak E Velocity 69.0 cm/s Right Atrial Pressure 3.0 mmHg Pulmonary Artery Systolic Pressu 32.5 mmHg PV Peak Velocity 97.0 cm/s RV Acceleration Time 0.2 s RV Ejection Time 0.5 s RV AcT/ET 0.3 FINDINGS Left Ventricle Normal left ventricular size. LV systolic function is normal with EF of 55-60%.No regional wall motion abnormalities are seen. Grade 1 diastolic dysfunction Right Ventricle The right ventricle is normal in size and function. Right Atrium The right atrium is normal in size. Left Atrium The left atrium is mildly enlarged Mitral Valve Structurally normal mitral valve without significant stenosis or prolapse. There is mild mitral regurgitation. Aortic Valve Aortic valve is thickened. No evidence of aortic stenosis. There is trace aortic regurgitation. Tricuspid Valve Structurally normal tricuspid valve without significant stenosis or regurgitation. RVSP is 30-35mmHg Pulmonic Valve Grossly normal Pericardium Normal pericardium without effusion. Aorta Normal ascending aorta dimension. CONCLUSIONS LV systolic function is normal with EF of 55-60% Grade 1 diastolic dysfunction Left atrium is mildly enlarged Mild mitral regurgitation Trace aortic regurgitation is seen Compared to prior echocardiogram from 06/23/2013, no significant changes are noted Brodie Cristobal MD (Electronically Signed) Final Date: 08 August 2020 20:05 S
== END 2020-08-03 09:48 | disposition home or self-care (01) ==
LOC: US 09:49
PROVIDERS: PCP Registered Nurse; Visit Provider Thoracic Surgery (Cardiothoracic Vascular Surgery)
DX: R01.1 Cardiac murmur, unspecified (principal); I08.0 Rheumatic disorders of both mitral and aortic valves
CPT/HCPCS: 93306

== ENCOUNTER → 2021-01-28 09:51 | Outpatient (BNVA) | payer MEDICARE, SELFPAY | PROVIDERS: PCP Registered Nurse; Visit Provider Registered Nurse | DX: R10.9 Unspecified abdominal pain (principal); K29.60 Other gastritis without bleeding | CPT/HCPCS: 81000 ==

== ENCOUNTER 2021-07-16 13:50 | Outpatient (CLI) | payer MEDICARE, SELFPAY ==
--- NOTE | 2021-07-16 | USCV_ITS ---
Carotid Duplex Indigo Rosenberg Age: 71 Gender: F : 1950 Exam Date: 07/16/2021 14:03 Ordering Phys: Kiran Gilbert MD (Andy) ([email or web address] [place]) Technologist: [email or web address] Exam Location: [facility] [place] Indication: OCCLUSION/STENOSIS Risk Factors: Previous Vascular Surgery: Right Brachial BP: / Left Brachial BP: / Right Left Velocity (cm/s) Spectral Plaque Velocity (cm/s) Spectral Plaque Syst/Diast Broadening Syst/Diast Broadening 71.70/ 12.10 Prox CCA 155.40/ 15.50 44.90/ 8.00 Mid CCA 121.20/ 18.60 89.30/ 12.40 Distal CCA 177.10/ 14.00 86.20/ 14.80 Prox ICA 85.40 / 16.20 88.60/ 17.90 Mid ICA 115.40/ 20.90 156.90/26.40 Distal ICA 122.70/ 23.30 245.00 ECA 326.60 1.76 ICA/CCA 0.69 Vertebral 96.30/ 17.10 cm/s 51.30/ 6.80 cm/s Subclavian 146.0 174.2 0 0 FINDINGS Comparison 05/27 CONCLUSIONS Right ICA stenosis <50%. Moderate atheromatous plaque right carotid bulb/ICA. Moderate calcified atheromatous plaque left carotid bulb/ICA. Carotid bulb stenosis 50-69%. Shadowing calcification can obscure more severe stenosis. Recommend Further evaluation with CTA. Moderate stenosis left ECA Normal antegrade Doppler flow noted in the right vertebral artery. Normal antegrade Doppler flow noted in the left vertebral artery. Oscar Valentino MD (Electronically Signed) Final Date: 16 July 2021 16:53 S
== END 2021-07-16 13:51 | disposition home or self-care (01) ==
PROVIDERS: PCP Registered Nurse; Visit Provider Thoracic Surgery (Cardiothoracic Vascular Surgery)
DX: I65.23 Occlusion and stenosis of bilateral carotid arteries (principal)
CPT/HCPCS: 93880

== ENCOUNTER 2021-09-19 13:26 | Emergency (ER) | payer MEDICARE, SELFPAY ==
[2021-09-19 13:45] VITALS: BP 155/69; PULSE 74; RESP 16; TEMP 36.6; O2SAT 98; BMI 28.6
[2021-09-19 15:21] LABS: Basophils # 0.1 10^3/uL (0.0-0.1); Basophils % 0.6 %; Eosinophils # 0.1 10^3/uL (0.0-0.8); Eosinophils % 1.4 %; Hematocrit 43.4 % (37.0-47.0); Lymphocytes # 1.6 10^3/uL (0.8-4.8); Lymphocytes % 17.8 %; Mean Corpuscular HGB Conc 32.3 g/dL (30.0-36.0); Mean Corpuscular Volume 89.9 fl (81-99); Mean Platelet Volume 10.8 fL (7.4-10.4); Monocytes # 0.5 10^3/uL (0.2-0.9); Monocytes % 5.7 %; Neutrophils # 6.54 10^3/uL (1.8-7.7); Neutrophils % 74.2 %; Nucleated Red Blood Cells % 0 %; Platelet Count 284 10^3/cmm (130-400); Red Blood Count 4.83 10^6/uL (4.1-5.3); Red Cell Distribution Width 13.3 % (12.1-15.1); White Blood Count 8.8 10^3/uL (4.0-10.0)
[2021-09-19 15:34] LABS: Urine Appearance Clear (CLEAR); Urine Color Yellow (Yellow); pH Urine 6 (5-7)
--- NOTE | 2021-09-19 15:34 | ED_ITS ---
Documented by User: SANA Gregory 09/20/21 07:13 HPI - Abdominal Pain General: Chief Complaint: Abdominal Pain Stated Complaint: ABD pain Time Seen by Provider: 09/19/21 15:07 History of Present Illness: Patient is a 71-year-old female comes to the ED with abdominal pain. Pain started approximately 6 weeks ago. Her pain is located in the epigastric region. She rates the pain currently a 5 out of 10. She saw her PCP over a month ago and they put her on pantoprazole and sucralfate and told her that she had a gastric ulcer. She has been taking her medications as prescribed for the past couple weeks and does not seem to be helping. Patient says she is still having a lot of epigastric pain and nausea. She has decreased appetite and states that she has been doing a lot of dry heaving. She states that anything she eats worsens her epigastric pain. Denies any blood in the emesis, coffee ground emesis, diarrhea, constipation, black or tarry stools or blood in the stools. Denies any chest pain, shortness of breath or palpitations. Patient says she has an appointment with Dr. Crandall for evaluation of abdominal pain on Thursday, September 25. Associated Symptoms: Reports nausea; Denies chills, constipation, diarrhea, dysuria, fever(s), hematochezia, hematuria and vomiting Review of Systems Const: Denies: fever(s), chills or fatigue Eyes: Denies: change in vision or eye discomfort ENMT: Denies: throat pain, odynophagia, nasal discharge or nasal congestion Card: Denies: chest pain, palpitations, edema, swelling of feet/ankles, dy spnea on exertion or orthopnea Resp: Denies: dyspnea, productive cough or non-productive cough GI: Reports: abdominal pain and nausea; Denies: vomiting, diarrhea, constipation or hematochezia : Denies: flank pain, dysuria or hematuria Musc: Denies: neck pain, back pain or extremity swelling Skin/Breast: Denies: rash or new lesions Neuro: Denies: headache(s), numbness in extremities or weakness in extremities PFSH ED PFSH: Medical History Essential hypertension Fibromyalgia Hyperlipidemia Hypertension Insomnia Occult blood positive stool Vitamin B 12 deficiency Vitamin D deficiency Surgical History History of breast lump/mass excision History of colonoscopy with polypectomy (~06/2019) Hx of appendectomy Family History Denies family history of Anesthesia complication Bleeding disorder Social History Smoking and tobacco status: current every day smoker cigarettes Packs smoked per day: 1 Years cigarettes smoked: 30 Second hand smoke exposure: Yes Smoking risk assessment/counseling performed?: No Alcohol intake: never Adopted: No Caregiver/support person: Yes Lives independently: Yes Household members: spouse Housing: House Marital status: Highest education level completed: High School Graduate service: No Current occupational status: retired Current occupational exposures/hazards: No Pets and animals: Yes History of recent travel: Yes Sexually active: Yes Current gender identity: Female Laila/Rastafarian: Quaker Special laila needs: No Agree to transfusion: No Financial difficulty paying for basics: Decline to Answer Physical Exam Const: COMMON NORMALS: patient oriented x3 HENMT: COMMON NORMALS: normocephalic HEAD & SCALP: normocephalic MOUTH: Normal oral and palatal mucosa present THROAT: posterior oropharynx normal and uvula midline Neck/C-Spine: COMMON NORMALS: supple GENERAL: Yes normal visual inspection Resp: COMMON NORMALS: normal respiratory effort, No retractions, No use of accessory muscles and clear to auscultation bilaterally AUSCULTATION: clear to auscultation bilaterally Cardio: COMMON NORMALS: regular rate, regular rhythm, S1 normal heart sound present, S2 normal heart sound present, No gallops present (Cardio), No clicks present (Cardio), No murmurs present (Cardio) and Peripheral pulses 2+ throughout RATE: regular rate RHYTHM: regular rhythm HEART SOUNDS: S1 normal heart sound present and S2 normal heart sound present PERIPHERAL PULSES: Peripheral pulses 2+ throughout GI: COMMON NORMALS: Normal to inspection, nondistended, normoactive bowel sounds present, Soft to palpation and no masses PALPATION: Yes Soft to palpation and Yes Tenderness to palpation present (GI) Details: other (Epigastric region) : COMMON NORMALS: Yes no CVA tenderness BLADDER/KIDNEY EXAM: Yes no CVA tenderness Back/Pelvis: COMMON NORMALS: no CVA tenderness Extremity: COMMON NORMALS: normal to inspection and no pedal edema Neuro: COMMON NORMALS: patient oriented x3 GAIT: Yes Normal gait present Skin: GENERAL SKIN EXAM: dry skin Course Vital Signs: Vital signs: Vital Signs Temperature 97.9 F 09/19/21 13:45 Pulse Rate 63 09/19/21 18:18 Respiratory Rate 16 09/19/21 18:18 Blood Pressure 147/77 09/19/21 18:18 Pulse Oximetry 95 09/19/21 18:18 MDM - Abdominal Pain Medical Decision Making 71-year-old female comes in today with some epigastric pain. Patient reports pain on and off for over a month. Patient reports today she woke up and had some bile emesis and persistent epigastric pain all day. Patient denies fever. Patient reports no diarrhea. On exam patient has some epigastric tenderness. Patient has normal bowel sounds. Vital signs are normal except for some elevation of blood pressure with a systolic of 155. Differential diagnosis includes but not limited to GERD, peptic ulcer disease, gallbladder disease, pancreatitis. Laboratory values were unremarkable. Troponin was negative. EKG showed a sinus rhythm with occasional PVCs. CT of the abdomen and pelvis indicated no acute infection at this time but did see some gallstones in the gallbladder. Suspect patient may have some gallbladder disease versus a gastrit is/peptic ulcer disease. Patient has an appointment to see Dr. Mcghee just next Thursday for consultation for upper GI. I also discussed with patient to speak with Dr. Mcghee just about her gallbladder and the presence of gallstones. Lab Data I reviewed the patient's lab results. : 09/19/21 15:12 09/19/21 15:12 Labs/Radiology: Radiology Impressions Abdomen/Pelvis CT 09/19/21 16:14 IMPRESSION: 1. No acute findings. 2. Punctate cholelithiasis. Laboratory Results WBC 8.8 10^3/uL (4.0-10.0) 09/19/21 15:12 RBC 4.83 10^6/uL (4.1-5.3) 09/19/21 15:12 Hgb 14.0 g/dL (11.5-15.3) 09/19/21 15:12 Hct 43.4 % (37.0-47.0) 09/19/21 15:12 MCV 89.9 fl (81-99) 09/19/21 15:12 MCH 29.0 pg (28.0-34.0) 09/19/21 15:12 MCHC 32.3 g/dL (30.0-36.0) 09/19/21 15:12 RDW 13.3 % (12.1-15.1) 09/19/21 15:12 Plt Count 284 10^3/cmm (130-400) 09/19/21 15:12 MPV 10.8 fL (7.4-10.4) H 09/19/21 15:12 Neut % (Auto) 74.2 % 09/19/21 15:12 Lymph % (Auto) 17.8 % 09/19/21 15:12 [place] % (Auto) 5.7 % 09/19/21 15:12 Eos % (Auto) 1.4 % 09/19/21 15:12 Baso % (Auto) 0.6 % 09/19/21 15:12 Neut # (Auto) 6.54 10^3/uL (1.8-7.7) 09/19/21 15:12 Lymph # (Auto) 1.6 10^3/uL (0.8-4.8) 09/19/21 15:12 [place] # (Auto) 0.5 10^3/uL (0.2-0.9) 09/19/21 15:12 Eos # (Auto) 0.1 10^3/uL (0.0-0.8) 09/19/21 15:12 Baso # (Auto) 0.1 10^3/uL (0.0-0.1) 09/19/21 15:12 Nucleated RBC % (auto) 0 % 09/19/21 15:12 Nucleated RBCs # 0.0 /100WBC 09/19/21 15:12 Sodium 138 mmol/L (136-145) 09/19/21 15:12 Potassium 4.0 mmol/L (3.5-5.1) 09/19/21 15:12 Chloride 102 mmol/L (98-107) 09/19/21 15:12 Carbon Dioxide 26 mmol/L (22-29) 09/19/21 15:12 Anion Gap 14.0 (5-19) 09/19/21 15:12 BUN 8 mg/dL (8-23) 09/19/21 15:12 Creatinine 0.7 mg/dL (0.5-0.9) 09/19/21 15:12 GFR Calculation 83.0 mL/min (90-130) L 09/19/21 15:12 Glucose 99 mg/dL (65-115) 09/19/21 15:12 Calculated Osmolality 284 mOsm/kg (285-295) L 09/19/21 15:12 Calcium 9.8 mg/dL (8.5-10.5) 09/19/21 15:12 Total Bilirubin 0.2 mg/dL (0.15-1.2) 09/19/21 15:12 AST 17 U/L (0-32) 09/19/21 15:12 ALT 10 U/L (0-33) 09/19/21 15:12 Alkaline Phosphatase 90 IU/L (35-105) 09/19/21 15:12 Troponin T Baseline 8 ng/L (0-10) 09/19/21 15:12 Troponin T 120 Minute 6.00 ng/L (0-10) 09/19/21 17:50 Delta Troponin T -2.00 ABS# (0-10) L 09/19/21 17:50 Total Protein 7.5 g/dL (6.6-8.7) 09/19/21 15:12 Albumin 4.8 g/dL (3.5-5.2) 09/19/21 15:12 Globulin 2.7 g/dL (1.3-4.6) 09/19/21 15:12 Lipase 14 U/L (13-60) 09/19/21 15:12 Urine Color Yellow (Yellow) 09/19/21 15:15 Urine Appearance Clear (CLEAR) 09/19/21 15:15 Urine pH 6 (5-7) 09/19/21 15:15 Ur Specific [place] 1.010 (1.005-1.030) 09/19/21 15:15 Urine Protein Neg (Negative) 09/19/21 15:15 Urine Glucose (UA) Norm (Normal) 09/19/21 15:15 Urine Ketones Negative (Negative) 09/19/21 15:15 Urine Blood 2+ (Negative) H 09/19/21 15:15 Urine Nitrate Negative (Negative) 09/19/21 15:15 Urine Bilirubin Neg (Negative) 09/19/21 15:15 Urine Urobilinogen Norm mg/dL (Negative) 09/19/21 15:15 Ur Leukocyte Esterase Negative (Negative) 09/19/21 15:15 Urine RBC 0-4 /hpf (0-2) H 09/19/21 15:15 Urine WBC 0-4 /hpf (0-5) H 09/19/21 15:15 Ur Squamous Epith Cells 0-4 /hpf (0-5) H 09/19/21 15:15 Ur Transition Epith Cell None /hpf 09/19/21 15:15 Ur Renal Epithelial Cell N /hpf 09/19/21 15:15 Calcium Oxalate Crystal None /hpf 09/19/21 15:15 Uric Acid Crystals N /hpf 09/19/21 15:15 Triple Phos Crystals None /hpf 09/19/21 15:15 Other Crystals N /hpf 09/19/21 15:15 Amorphous Sediment Not Reportable 09/19/21 15:15 Urine Bacteria None /hpf (NONE) 09/19/21 15:15 Urine Mucus N /hpf 09/19/21 15:15 H. pylori IgG Antibody Negative (Negative) 09/19/21 15:12 EKG Data EKG 1: EKG interpretation date: 09/19/21 EKG interpretation time: 15:55 Interpretation: Normal sinus rhythm with PVCs. [address] segment elevation or depressions. Discharge Plan Discharge Patient Disposition: Home Clinical Impression: Abdominal pain Qualifiers: Abdominal location: epigastric Qualified Code(s): R10.13 - Epigastric pain Cholelithiases Qualifiers: Cholelithiasis location: gallbladder Cholecystitis presence: without cholecystitis Biliary obstruction: without biliary obstruction Qualified Code(s): K80.20 - Calculus of gallbladder without cholecystitis without obstruction Condition: Stable Prescriptions: New hydrocodone-acetaminophen 5-325 mg tablet 1 tab PO Q8H PRN (Reason: pain (scale score 7-10)) Qty: 7 0RF No Action PreserVision AREDS 14,320-226-200 [id number] capsule 1 cap PO DAILY 0RF sucralfate [Carafate] 1 gram tablet 1 g PO BID 10 Days Qty: 20 0RF pantoprazole 40 mg tablet,delayed release (DR/EC) 40 mg PO BID Qty: 90 1RF Rx Instructions: originally prescribed 08/30. Increased to BID on 09/18 zolpidem 10 mg tablet 10 mg PO BEDTIME@00 30 Days Qty: 30 2RF Hold Instructions: Doctor's Order ergocalciferol (vitamin D2) 1,250 mcg (50,000 unit) capsule See Rx Instructions .ROUTE .COMPLEX Qty: 12 0RF Dose Instruction: TAKE ONE CAPSULE BY MOUTH ONCE WEEKLY ON TUESDAYS Rx Instructions: TAKE ONE CAPSULE BY MOUTH ONCE WEEKLY ON TUESDAYS Vitamin C 1 tab PO DAILY@0800 PRN (Reason: IMMUNITY) 0RF zinc 1 tab PO DAILY@0800 PRN (Reason: IMMUNITY) 0RF aspirin 81 mg Tablet,Delayed Release (Dr/Ec) 81 mg PO DAILY Qty: 30 0RF lisinopril 20 mg tablet 20 mg PO DAILY 0RF amlodipine 10 mg tablet 10 mg PO DAILY 0RF Discharge Orders: Discharge ED (Routine); Ordered 09/19/21 Ordered By: Kiran Hills Referrals: Juliana Montiel FNP [Primary Care Provider] - Discharge Diet: Usual diet Discharge Activity: Increase activity as tolerated Patient Instructions: Gallstones (ED), Abdominal Pain (ED), Opioid Safety Activity Restrictions/Additional Instructions: Home and rest. Drink plenty of fluids. Continue with routine medications. Avoid eating 2 hours before bedtime. Avoid really greasy or fatty foods. Keep appointment with Dr. Sims for further evaluation and treatment. Monitor for high fever greater than 100.4, persistent vomiting, blood in vomit or stool, or uncontrolled pain. Return to the ER for the symptoms. Follow-up with primary care as needed. Sign Out Sign Out Data: Patient Sign Out occurred on 09/19/21 at 17:10. Patient's care was discussed, and care was transferred from to Kiran [place]. Post-Handoff Eval: Patient is resting well. Awaiting CT results. No acute distress is noted at this time. Coding Level of Care Code ED Application Packager for Chg Fwd Exam Comprehensive Documented by User: TRACY Thomas 09/19/21 18:05 HPI - Abdominal Pain General: Chief Complaint: Abdominal Pain Stated Complaint: ABD pain Time Seen by Provider: 09/19/21 15:07 PFSH ED PFSH: Medical History Essential hypertension Fibromyalgia Hyperlipidemia Hypertension Insomnia Occult blood positive stool Vitamin B 12 deficiency Vitamin D deficiency Surgical History History of breast lump/mass excision History of colonoscopy with polypectomy (~06/2019) Hx of appendectomy Family History Denies family history of Anesthesia complication Bleeding disorder Social History Smoking and tobacco status: current every day smoker cigarettes Packs smoked per day: 1 Years cigarettes smoked: 30 Second hand smoke exposure: Yes Smoking risk assessment/counseling performed?: No Alcohol intake: never Adopted: No Caregiver/support person: Yes Lives independently: Yes Household members: spouse Housing: House Marital status: Highest education level completed: High School Graduate service: No Current occupational status: retired Current occupational exposures/hazards: No Pets and animals: Yes History of recent travel: Yes Sexually active: Yes Current gender identity: Female Laila/Rastafarian: Quaker Special laila needs: No Agree to transfusion: No Financial difficulty paying for basics: Decline to Answer Course Vital Signs: Vital signs: Vital Signs Temperature 97.9 F 09/19/21 13:45 Pulse Rate 63 09/19/21 18:18 Respiratory Rate 16 09/19/21 18:18 Blood Pressure 147/77 09/19/21 18:18 Pulse Oximetry 95 09/19/21 18:18 MDM - Abdominal Pain Medical Decision Making 71-year-old female comes in today with some epigastric pain. Patient reports pain on and off for over a month. Patient reports today she woke up and had some bile emesis and persistent epigastric pain all day. Patient denies fever. Patient reports no diarrhea. On exam patient has some epigastric tenderness. Patient has normal bowel sounds. Vital signs are normal except for some elevat ion of blood pressure with a systolic of 155. Differential diagnosis includes but not limited to GERD, peptic ulcer disease, gallbladder disease, pancreatitis. Laboratory values were unremarkable. Troponin was negative. EKG showed a sinus rhythm with occasional PVCs. CT of the abdomen and pelvis indicated no acute infection at this time but did see some gallstones in the gallbladder. Suspect patient may have some gallbladder disease versus a gastritis/peptic ulcer disease. Patient has an appointment to see Dr. Hoyt just next Thursday for consultation for upper GI. I also discussed with patient to speak with Dr. TAMIKA schwab about her gallbladder and the presence of gallstones. Lab Data : 09/19/21 15:12 09/19/21 15:12 Labs/Radiology: Radiology Impressions Abdomen/Pelvis CT 09/19/21 16:14 IMPRESSION: 1. No acute findings. 2. Punctate cholelithiasis. Laboratory Results WBC 8.8 10^3/uL (4.0-10.0) 09/19/21 15:12 RBC 4.83 10^6/uL (4.1-5.3) 09/19/21 15:12 Hgb 14.0 g/dL (11.5-15.3) 09/19/21 15:12 Hct 43.4 % (37.0-47.0) 09/19/21 15:12 MCV 89.9 fl (81-99) 09/19/21 15:12 MCH 29.0 pg (28.0-34.0) 09/19/21 15:12 MCHC 32.3 g/dL (30.0-36.0) 09/19/21 15:12 RDW 13.3 % (12.1-15.1) 09/19/21 15:12 Plt Count 284 10^3/cmm (130-400) 09/19/21 15:12 MPV 10.8 fL (7.4-10.4) H 09/19/21 15:12 Neut % (Auto) 74.2 % 09/19/21 15:12 Lymph % (Auto) 17.8 % 09/19/21 15:12 [place] % (Auto) 5.7 % 09/19/21 15:12 Eos % (Auto) 1.4 % 09/19/21 15:12 Baso % (Auto) 0.6 % 09/19/21 15:12 Neut # (Auto) 6.54 10^3/uL (1.8-7.7) 09/19/21 15:12 Lymph # (Auto) 1.6 10^3/uL (0.8-4.8) 09/19/21 15:12 [place] # (Auto) 0.5 10^3/uL (0.2-0.9) 09/19/21 15:12 Eos # (Auto) 0.1 10^3/uL (0.0-0.8) 09/19/21 15:12 Baso # (Auto) 0.1 10^3/uL (0.0-0.1) 09/19/21 15:12 Nucleated RBC % (auto) 0 % 09/19/21 15:12 Nucleated RBCs # 0.0 /100WBC 09/19/21 15:12 Sodium 138 mmol/L (136-145) 09/19/21 15:12 Potassium 4.0 mmol/L (3.5-5.1) 09/19/21 15:12 Chloride 102 mmol/L (98-107) 09/19/21 15:12 Carbon Dioxide 26 mmol/L (22-29) 09/19/21 15:12 Anion Gap 14.0 (5-19) 09/19/21 15:12 BUN 8 mg/dL (8-23) 09/19/21 15:12 Creatinine 0.7 mg/dL (0.5-0.9) 09/19/21 15:12 GFR Calculation 83.0 mL/min (90-130) L 09/19/21 15:12 Glucose 99 mg/dL (65-115) 09/19/21 15:12 Calculated Osmolality 284 mOsm/kg (285-295) L 09/19/21 15:12 Calcium 9.8 mg/dL (8.5-10.5) 09/19/21 15:12 Total Bilirubin 0.2 mg/dL (0.15-1.2) 09/19/21 15:12 AST 17 U/L (0-32) 09/19/21 15:12 ALT 10 U/L (0-33) 09/19/21 15:12 Alkaline Phosphatase 90 IU/L (35-105) 09/19/21 15:12 Troponin T Baseline 8 ng/L (0-10) 09/19/21 15:12 Troponin T 120 Minute 6.00 ng/L (0-10) 09/19/21 17:50 Delta Troponin T -2.00 ABS# (0-10) L 09/19/21 17:50 Total Protein 7.5 g/dL (6.6-8.7) 09/19/21 15:12 Albumin 4.8 g/dL (3.5-5.2) 09/19/21 15:12 Globulin 2.7 g/dL (1.3-4.6) 09/19/21 15:12 Lipase 14 U/L (13-60) 09/19/21 15:12 Urine Color Yellow (Yellow) 09/19/21 15:15 Urine Appearance Clear (CLEAR) 09/19/21 15:15 Urine pH 6 (5-7) 09/19/21 15:15 Ur Specific [place] 1.010 (1.005-1.030) 09/19/21 15:15 Urine Protein Neg (Negative) 09/19/21 15:15 Urine Glucose (UA) Norm (Normal) 09/19/21 15:15 Urine Ketones Negative (Negative) 09/19/21 15:15 Urine Blood 2+ (Negative) H 09/19/21 15:15 Urine Nitrate Negative (Negative) 09/19/21 15:15 Urine Bilirubin Neg (Negative) 09/19/21 15:15 Urine Urobilinogen Norm mg/dL (Negative) 09/19/21 15:15 Ur Leukocyte Esterase Negative (Negative) 09/19/21 15:15 Urine RBC 0-4 /hpf (0-2) H 09/19/21 15:15 Urine WBC 0-4 /hpf (0-5) H 09/19/21 15:15 Ur Squamous Epith Cells 0-4 /hpf (0-5) H 09/19/21 15:15 Ur Transition Epith Cell None /hpf 09/19/21 15:15 Ur Renal Epithelial Cell N /hpf 09/19/21 15:15 Calcium Oxalate Crystal None /hpf 09/19/21 15:15 Uric Acid Crystals N /hpf 09/19/21 15:15 Triple Phos Crystals None /hpf 09/19/21 15:15 Other Crystals N /hpf 09/19/21 15:15 Amorphous Sediment Not Reportable 09/19/21 15:15 Urine Bacteria None /hpf (NONE) 09/19/21 15:15 Urine Mucus N /hpf 09/19/21 15:15 H. pylori IgG Antibody Negative (Negative) 09/19/21 15:12 EKG Data EKG 2: EKG interpretation date: 09/19/21 EKG interpretation time: 17:43 Interpretation: EKG shows sinus rhythm with frequent PVCs with a regular rate at 84 bpm. Some left atrial enlargement is interpreted per computer. No significant changes was done from prior EKG done [address] elevation is noted. Discharge Plan Discharge Patient Disposition: Home Clinical Impression: Abdominal pain Qualifiers: Abdominal location: epigastric Qualified Code(s): R10.13 - Epigastric pain Cholelithiases Qualifiers: Cholelithiasis location: gallbladder Cholecystitis presence: without cholecystitis Biliary obstruction: without biliary obstruction Qualified Code(s): K80.20 - Calculus of gallbladder without cholecystitis without obstruction Condition: Stable Prescriptions: New hydrocodone-acetaminophen 5-325 mg tablet 1 tab PO Q8H PRN (Reason: pain (scale score 7-10)) Qty: 7 0RF No Action PreserVision AREDS [id number] [id number] capsule 1 cap PO DAILY 0RF sucralfate [Carafate] 1 gram tablet 1 g PO BID 10 Days Qty: 20 0RF pantoprazole 40 mg tablet,delayed release (DR/EC) 40 mg PO BID Qty: 90 1RF Rx Instructions: originally prescribed 08/30. Increased to BID on 09/18 zolpidem 10 mg tablet 10 mg PO BEDTIME@00 30 Days Qty: 30 2RF Hold Instructions: Doctor's Order ergocalciferol (vitamin D2) 1,250 mcg (50,000 unit) capsule See Rx Instructions .ROUTE .COMPLEX Qty: 12 0RF Dose Instruction: TAKE ONE CAPSULE BY MOUTH ONCE WEEKLY ON TUESDAYS Rx Instructions: TAKE ONE CAPSULE BY MOUTH ONCE WEEKLY ON TUESDAYS Vitamin C 1 tab PO DAILY@0800 PRN (Reason: IMMUNITY) 0RF zinc 1 tab PO DAILY@0800 PRN (Reason: IMMUNITY) 0RF aspirin 81 mg Tablet,Delayed Release (Dr/Ec) 81 mg PO DAILY Qty: 30 0RF lisinopril 20 mg tablet 20 mg PO DAILY 0RF amlodipine 10 mg tablet 10 mg PO DAILY 0RF Discharge Orders: Discharge ED (Routine); Ordered 09/19/21 Ordered By: Kiran [place] Referrals: Juliana Montiel FNP [Primary Care Provider] - Discharge Diet: Usual diet Discharge Activity: Increase activity as tolerated Patient Instructions: Gallstones (ED), Abdominal Pain (ED), Opioid Safety Activity Restrictions/Additional Instructions: Home and rest. Drink plenty of fluids. Continue with routine medications. Avoid eating 2 hours before bedtime. Avoid really greasy or fatty foods. Keep appointment with Dr. Sims for further evaluation and treatment. Monitor for high fever greater than 100.4, persistent vomiting, blood in vomit or stool, or uncontrolled pain. Return to the ER for the symptoms. Follow-up with primary care as needed. Sign Out Sign Out Data: Patient Sign Out occurred on 09/19/21 at 17:10. Patient's care was discussed, and care was transferred from to [place]. Post-Handoff Eval: Patient is resting well. Awaiting CT results. No acute distress is noted at this time. Coding Level of Care Code ED Application Packager for Jason Fwd Exam Comprehensive
--- NOTE | 2021-09-19 15:34 | ECG_ITS ---
[facility] Test Date: 2021-09-19 Pat Name: Indigo Rosenberg Department: Room: Gender: Female [employer] Supervisor: : 1950 Requested By: Sonu Pace Order Number: [id number] Moreno MD: Brodie Cristobal M.D. Measurements Intervals [employer] Rate: 80 P: 71 IA: 136 QRS: 67 QRSD: 82 T: 59 QT: 383 QTc: 444 Interpretive Statements SINUS RHYTHM WITH FREQUENT VENTRICULAR PREMATURE COMPLEXES POSSIBLE LEFT ATRIAL ENLARGEMENT [-0.1mV P-WAVE IN V1/V2] NONSPECIFIC T-WAVE ABNORMALITY Compared to ECG 05/19/2020 02:26:01 Ventricular premature complex(es) now present T-wave abnormality now present Electronically Signed On 09-19-2021 18:06:34 CDT by Brodie Cristobal M.D. [id number]
[2021-09-19 15:35] LABS: Add Urine Microscopic? YES; Bilirubin Urine Neg (Negative); Blood Urine 2+ (Negative); Glucose Urine UA Norm (Normal); Ketones Urine Negative (Negative); Leukocyte Esterase Urine Negative (Negative); Nitrate Urine Negative (Negative); Protein Urine Neg (Negative); Urobilinogen Urine Norm (Negative)
[2021-09-19 15:47] LABS: Alanine Aminotransferase 10 U/L (0-33); Albumin Level 4.8 g/dL (3.5-5.2); Alkaline Phosphatase 90 IU/L (35-105); Aspartate Amino Transferase 17 U/L (0-32); Blood Urea Nitrogen 8 mg/dL (8-23); Calcium 9.8 mg/dL (8.5-10.5); Carbon Dioxide 26 mmol/L (22-29); Chloride 102 mmol/L (98-107); Globulin 2.7 g/dL (1.3-4.6); Glucose 99 mg/dL (65-115); Lipase 14 U/L (13-60); Osmolality Calculated 284 mOsm/kg (285-295); Sodium 138 mmol/L (136-145); Total Bilirubin 0.2 mg/dL (0.15-1.2); Total Protein 7.5 g/dL (6.6-8.7)
[2021-09-19] MEDS: sodium chloride 0.9% 500 ML 999 ML IV (15:59)
[2021-09-19 16:06] LABS: Mucus Urine N /hpf; Other Crystals Urine N /hpf; RBC Urine 0-4 /hpf (0-2); Renal Epithelial Cells Urine N /hpf; Squamous Epithelial Cell Urine 0-4 /hpf (0-5); Uric Acid Crystals Urine N /hpf; WBC Urine 0-4 /hpf (0-5)
[2021-09-19 16:07] LABS: Add Urine Culture? No
--- NOTE | 2021-09-19 16:14 | CTR_ITS ---
PROCEDURE INFORMATION: Exam: CT Abdomen And Pelvis With Contrast Exam date and time: 09/19/2021 4:30 PM Age: 71 years old Clinical indication: Abdominal pain; Acute; Additional info: Epigastric pain, n/v TECHNIQUE: Imaging protocol: Computed tomography of the abdomen and pelvis with contrast. Radiation optimization: All CT scans at this facility use at least one of these dose optimization techniques: automated exposure control; mA and/or kV adjustment per patient size (includes targeted exams where dose is matched to clinical indication); or iterative reconstruction. Contrast material: OMNI 300; Contrast volume: 95 ml; Contrast route: INTRAVENOUS (IV); COMPARISON: No relevant prior studies available. RADIATION DOSE METRICS: Total DLP (mGy-cm): 1352.13 FINDINGS: Liver: Normal. No mass. Gallbladder and bile ducts: Punctate calcified stone in the gallbladder body. No ductal dilation. Pancreas: Normal. No ductal dilation. Spleen: Calcified granulomas noted in the spleen. No splenomegaly. Adrenal glands: Normal. No mass. Kidneys and ureters: Normal. No hydronephrosis. Stomach and bowel: Colonic diverticulosis centered in the left hemicolon without findings of acute diverticulitis. No obstruction. No mucosal thickening. Appendix: Appendectomy. Intraperitoneal space: Unremarkable. No free air. No significant fluid collection. Arteries: No abdominal aortic aneurysm. Lymph nodes: Unremarkable. No enlarged lymph nodes. Urinary bladder: Unremarkable as visualized. Reproductive: Unremarkable as visualized. Bones/joints: No acute fracture. Soft tissues: Unremarkable. CT/CT abdomen pelvis w con* [id number] IMPRESSION: 1. No acute findings. 2. Punctate cholelithiasis.
[2021-09-19] MEDS: iohexol 300 mg/mL 100 mL Btl IV (16:30)
[2021-09-19 16:33] LABS: Troponin(5th) Baseline 8 ng/L (0-10)
[2021-09-19 17:11] LABS: H. Pylori IgG Antibody Negative (Negative)
--- NOTE | 2021-09-19 17:34 | ECG_ITS ---
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 Measurements Intervals [place] Rate: 84 P: 71 IN: 142 QRS: 69 QRSD: 81 T: 58 QT: 403 QTc: 478 Interpretive Statements SINUS RHYTHM WITH FREQUENT VENTRICULAR PREMATURE COMPLEXES POSSIBLE LEFT ATRIAL ENLARGEMENT [-0.1mV P-WAVE IN V1/V2] NONSPECIFIC T-WAVE ABNORMALITY Compared to ECG 09/19/2021 15:51:44 No significant changes Electronically Signed On 09-19-2021 18:11:03 CDT by Brodie Cristobal M.D. [id number]
[2021-09-19] MEDS: HYDROcodone-acetaminophen 5-325 mg Tablet 1 TAB PO (18:15)
[2021-09-19 18:18] VITALS: BP 147/77; PULSE 63; RESP 16; O2SAT 95
== END 2021-09-19 18:23 | disposition home or self-care (01) ==
PROVIDERS: Emergency Medicine; Physician Assistant; Emergency Provider Nurse Practitioner Family; PCP Registered Nurse
DX: K80.20 Calculus of gallbladder without cholecystitis without obstruction (principal); F17.210 Nicotine dependence, cigarettes, uncomplicated
CPT/HCPCS: 74177; 80053; 81001; 83690; 84484; 85025; 86677; 93005; 99284; J7040; Q9967

== ENCOUNTER → 2021-09-25 10:21 | Outpatient (BNVA) | payer MEDICARE, SELFPAY | PROVIDERS: PCP Registered Nurse; Visit Provider Surgery | DX: R10.13 Epigastric pain (principal); K21.9 Gastro-esophageal reflux disease without esophagitis; F17.210 Nicotine dependence, cigarettes, uncomplicated | CPT/HCPCS: 99213 ==

== ENCOUNTER 2021-09-26 09:57 | Day surgery (SDC) | payer MEDICARE, SELFPAY ==
[2021-09-26 07:35] VITALS: BMI 28.6
[2021-09-26] MEDS: sodium chloride 0.9% 1,000 ML 30 ML IV (10:22)
--- NOTE | 2021-09-26 10:33 | W.PM.OPSUD ---
Surgery/Procedure H&P Update DATE OF PROCEDURE: September 26, 2021 DATE H&P PERFORMED: 09/25/21 H&P UPDATE INFORMATION: I have reviewed H&P completed within last 30 days, I have examined patient prior to procedure and No changes to prior documentation PREOP DIAGNOSIS: Epigastric pain PRIMARY INDICATION FOR PROCEDURE: The same PLANNED PROCEDURE: Operation Date: 09/26/21 11:30 Proposed Procedures p EGD 55158/r10.9(Not Applicable) - Mark Crandall MD
--- NOTE | 2021-09-26 10:42 | P.ANESASSM_ITS ---
Pre-Anesthetic Assessment Height/Weight: Height 1.65 m Weight 78.018 kg Preop Diagnosis: Epigastric pain Operation Date: 09/26/21 11:30 Proposed Procedures p EGD 15336/r10.9(Not Applicable) - Mark Crandall MD Familial anesthetic complications: None Was Beta Hallie taken within 24 hours: N/A Was Clonidine taken within 24 hours: N/A Last intake: Intake Last Liquid Date 09/25/21 Last Liquid Time 23:30 Last Solid Date 09/25/21 Last Solid Time 16:00 Social Tobacco and No alcohol Exam alert, oriented x 3, clear to auscultation bilaterally and regular rate & rhythm Airway Submandibular: within normal limits Cervical ROM: within normal limits Mallampati: Class II Dentition: false Pulmonary Chronic Obstructive Pulmonary Disease CV/HEM Hypertension and Peripheral Vascular Disease GI Gastroesophageal Reflux Disease Anesthetic Plan ASA status: 3 Anesthesia: MAC Medications/Allergies Home Medications Medication Instructions Recorded Confirmed Last Taken Type Vitamin C 1 tab PO DAILY@0800 PRN 05/18/20 09/26/21 05/18/20 History zinc 1 tab PO DAILY@0800 PRN 05/18/20 09/26/21 05/18/20 History aspirin 81 mg tablet,delayed 81 mg PO DAILY #30 tab 05/19/20 09/26/21 09/24/21 Rx release zolpidem 10 mg tablet 10 mg PO BEDTIME@00 30 Days #30 tab 06/14/21 09/26/21 09/25/21 Rx ergocalciferol (vitamin D2) 1,250 See Rx Instructions .ROUTE 09/16/21 09/26/21 09/17/21 Rx mcg (50,000 unit) capsule .COMPLEX #12 cap pantoprazole 40 mg tablet,delayed 40 mg PO BID #90 tab 09/18/21 09/26/21 09/25/21 Rx release sucralfate 1 gram tablet (Carafate) 1 g PO BID 10 Days #20 tab 09/18/21 09/26/21 09/25/21 Rx amlodipine 10 mg tablet 10 mg PO DAILY 09/19/21 09/26/21 09/26/21 History hydrocodone 5 mg-acetaminophen 325 1 tab PO Q8H PRN #7 tab 09/19/21 09/26/21 Unknown Rx mg tablet lisinopril 20 mg tablet 20 mg PO DAILY 09/19/21 09/26/21 09/26/21 History Allergies Allergy/AdvReac Type Severity Reaction Status Date / Time No Known Allergies Allergy Verified 09/26/21 10:12 Current Medications Generic Name Dose Route Start Last Admin Trade Name Valarie PRN Reason Stop Dose Admin Sodium Chloride 1,000 mls @ 30 mls/hr 09/26/21 10:15 09/26/21 10:22 Sodium Chloride 0.9% IV 30 mls/hr .Q24H ROSALIE Administration PFSH Anesthesia Medical History Essential hypertension Fibromyalgia Hyperlipidemia Hypertension Insomnia Occult blood positive stool Vitamin B 12 deficiency Vitamin D deficiency Surgical History History of breast lump/mass excision History of colonoscopy with polypectomy (~06/2019) Hx of appendectomy Family History Denies family history of Anesthesia complication Bleeding disorder Social History Smoking and tobacco status: current every day smoker cigarettes Packs smoked per day: 1 Years cigarettes smoked: 30 Second hand smoke exposure: Yes Smoking risk assessment/counseling performed?: No Alcohol intake: never Adopted: No Caregiver/support person: Yes Lives independently: Yes Household members: spouse Housing: House Marital status: Highest education level completed: High School Graduate service: No Current occupational status: retired Current occupational exposures/hazards: No Pets and animals: Yes History of recent travel: Yes Sexually active: Yes Current gender identity: Female Laila/Protestant: Episcopalian Special laila needs: No Agree to transfusion: No Financial difficulty paying for basics: Decline to Answer Data Anesthesia Cardiac Studies: Echocardiogram Ultrasound 08/03/20
[2021-09-26 11:43] VITALS: BP 125/57; PULSE 67; RESP 18; TEMP 36.2; O2SAT 96
[2021-09-26 12:08] VITALS: BP 113/63; PULSE 64; RESP 18; TEMP 36.3; O2SAT 96
--- NOTE | 2021-09-26 14:53 | ANE.PACU2 ---
Inpatient post-anesthesia follow up: Airway intact: Yes Vital signs: Temperature 97.3 F Pulse Rate 64 Respiratory Rate 18 Blood Pressure 113/63 Pulse Oximetry 96 Oxygen Delivery Me thod Room Air Oxygen Flow Rate Fraction of Inspir ed Oxygen Hydration adequate: Yes Nausea and vomiting: No Pain level: 1 Mental status: Baseline
== END 2021-09-26 12:21 | disposition home or self-care (01) ==
PROVIDERS: PCP Registered Nurse; Visit Provider Surgery
PROC: 0DJ08ZZ Inspection of Upper Intestinal Tract, Via Natural or Artificial Opening Endoscopic (ICD-10-PCS; CPT 43235; principal; 2021-09-26 11:30)
DX: R10.13 Epigastric pain (principal); K21.00 Gastro-esophageal reflux disease with esophagitis, without bleeding; K29.70 Gastritis, unspecified, without bleeding; K25.3 Acute gastric ulcer without hemorrhage or perforation; J44.9 Chronic obstructive pulmonary disease, unspecified; I10 Essential (primary) hypertension; I73.9 Peripheral vascular disease, unspecified; M79.7 Fibromyalgia
CPT/HCPCS: 43239; 88305; 88342; J2704; J7030

== ENCOUNTER → 2021-10-02 09:43 | Outpatient (BNVA) | payer MEDICARE, SELFPAY | PROVIDERS: PCP Registered Nurse; Visit Provider Surgery | DX: Z09 Encounter for follow-up examination after completed treatment for conditions other than malignant neoplasm (principal); R10.13 Epigastric pain | CPT/HCPCS: 99213 ==

== ENCOUNTER → 2021-10-16 09:32 | Outpatient (BNVA) | payer MEDICARE, SELFPAY | PROVIDERS: PCP Registered Nurse; Visit Provider Surgery | DX: R10.13 Epigastric pain (principal) | CPT/HCPCS: 99213 ==

== ENCOUNTER 2021-10-30 08:26 | Outpatient (CLI) | payer MEDICARE, SELFPAY ==
--- NOTE | 2021-10-30 09:15 | US_ITS ---
WS: [id number] RIGHT UPPER QUADRANT ULTRASOUND HISTORY: epigastric pain COMPARISON: None available. Liver: 14.8 cm in length. Normal size liver. No bile duct dilatation or mass. Portal Vein: Normal hepatopetal flow with monophasic waveform. Gallbladder: Normally distended gallbladder. There is a small soft tissue nodule which does not shado w in the dependent portion of the gallbladder. Slightly lobulated soft tissue nodule measures 11 mm i n diameter. This probably corresponds to the finding on the recent CT which is thought to be a stone. By ultrasound this appears to be a soft tissue nodule which may be a polyp. CBD: 0.7 cm Pancreas: Normal size and echogenicity. Right kidney: 11.4 cm in length. Normal size and echogenicity. No hydronephrosis or mass. Aorta and IVC: Unremarkable abdominal aorta and IVC. No ascites. US/US gall bladder [id number] IMPRESSION: 1. Soft tissue nodule without shadowing in the gallbladder measures 11 mm. Mos t likely a polyp and not a stone as thought on the prior CT. Due to its slight lobulation in size 3-4 month ultrasound follow-up versus surgical consultation with removal recommended. 2. Top normal common bile duct size. No biliary dilatation.
== END 2021-10-30 08:27 | disposition home or self-care (01) ==
PROVIDERS: PCP Registered Nurse; Visit Provider Surgery
DX: K82.8 Other specified diseases of gallbladder (principal); K82.9 Disease of gallbladder, unspecified
CPT/HCPCS: 76705

== ENCOUNTER → 2021-11-06 12:22 | Outpatient (BNVA) | payer MEDICARE, SELFPAY | PROVIDERS: PCP Registered Nurse; Visit Provider Surgery | DX: K82.4 Cholesterolosis of gallbladder (principal); R10.13 Epigastric pain; K21.9 Gastro-esophageal reflux disease without esophagitis | CPT/HCPCS: 99212 ==

== ENCOUNTER 2021-12-19 06:07 | Day surgery (SDC) | payer MEDICARE, SELFPAY ==
[2021-12-17 11:25] VITALS: BMI 28.3
[2021-12-19 06:40] VITALS: BP 137/80; PULSE 70; RESP 18; TEMP 36.1; O2SAT 97
[2021-12-19] MEDS: sodium chloride 0.9% 1,000 ML 30 ML IV (06:50)
--- NOTE | 2021-12-19 07:28 | P.HP_ITS ---
Same Day Surgery H&P Indication for Procedure/HPI DATE OF PROCEDURE: December 19, 2021 CHIEF COMPLAINT/INDICATIONFOR SURGICAL PROCEDURE: Belly pain PREOP DIAGNOSIS: Epigastric pain PLANNED PROCEDURE: Operation Date: 12/19/21 08:00 Proposed Procedures p EGD 96891,K21.9(Not Applicable) - Mark Crandall MD 10/02/2021 Patient comes today as a follow-up status post EGD and she continues to have epigastric pain, she was placed on pantoprazole double dose 40 mg twice daily in addition to Carafate 1 g every 6 hours.? Patient seems to be very anxious and it was found to have gastric ulcer in addition to reflux esophagitis and gastritis.? And was tested positive for H. pylori H. pylori immunohistochemical stain has been performed on block A1 with appropriate control. ? H. pylori: Strongly positive. Addendum Signed Cassie Gill MD 10/02/21 Final Diagnosis A.? Stomach, antrum , biopsy: ? Chronic active gastritis with focal intestinal metaplasia. ? No dysplasia identified. ? H. pylori immunohistochemical stain has been performed and will be reported separately. On a prior CT scan patient was found to have incidental finding of gallbladder stones but I do not believe her current complaint related to this at the moment. 10/16/2021 Patient seems to be feeling little bit better the pain is gone but she does have some burning and she is receiving Protonix twice daily and Carafate every 8 hours.? Ultrasound of the gallbladder still pending.? She was started on an anxiety medication per her PCP and that seemed to help some 11/06/2020 Patient comes today for follow-up via telehealth visit and she seems to be feeling better and less nauseated.? Ultrasound of the liver and gallbladder was done that did show 1.? Soft tissue nodule without shadowing in the gallbladder measures 11 mm. Most likely a polyp and not a stone as thought on the prior CT. Due to its slight lobulation in size 3-4 month ultrasound follow-up versus surgical consultation with removal recommended. 2.? Top normal common bile duct size. No biliary dilatation. 12/19/2021 Patient comes today for repeat diagnostic EGD to confirm that the ulcer has healed ROS All systems have been reviewed negative except as for the above or per problem list. Medications/Allergies* Home Medications Medication Instructions Recorded Confirmed Type lisinopril 20 mg tablet 20 mg PO DAILY 09/19/21 12/17/21 History buspirone 10 mg tablet 10 mg PO BID 12/17/21 12/17/21 History ergocalciferol (vitamin D2) 1,250 1 unit PO .WKLY 12/17/21 12/17/21 History mcg (50,000 unit) capsule vit C 226 mg-vit E 90 mg-copper 2 1 cap PO DAILY 12/17/21 12/17/21 History mg-zinc 34.8 mg-lutein 5 mg capsule (Eye Multivit-Lutein(C-E-Cu-Zn)) Allergies/Adverse Reactions Allergy/AdvReac Type Severity Reaction Status Date / Time No Known Allergies Allergy Verified 12/19/21 07:30 Current Medications: Generic Name Dose Route Start Last Admin Trade Name Freq PRN Reason Stop Dose Admin Sodium Chloride 1,000 mls @ 30 mls/hr 12/19/21 06:30 12/19/21 06:50 Sodium Chloride 0.9% IV 30 mls/hr .Q24H ROSALIE Administration Pertinent History/Comorbid Conditions* Medical History (Updated 11/07/21 @ 17:09 by Mark Crandall MD) Essential hypertension Fibromyalgia Hyperlipidemia Hypertension Insomnia Occult blood positive stool Vitamin B 12 deficiency Vitamin D deficiency Surgical History (Updated 05/18/20 @ 20:35 by Silverio Hopson MD) History of breast lump/mass excision History of colonoscopy with polypectomy (~06/2019) Hx of appendectomy Family History (Updated 06/27/19 @ 08:40 by Yahaira Flores RN) Denies family history of Anesthesia complication Bleeding disorder Social History Smoking and tobacco status: current every day smoker cigarettes Packs smoked per day: 1 Years cigarettes smoked: 30 Second hand smoke exposure: Yes Smoking risk assessment/counseling performed?: No Alcohol intake: never Adopted: No Caregiver/support person: Yes Lives independently: Yes Household members: spouse Housing: House Marital status: Highest education level completed: High School Graduate service: No Current occupational status: retired Current occupational exposures/hazards: No Pets and animals: Yes History of recent travel: Yes Sexually active: Yes Current gender identity: Female Laila/Mormonism: Congregational Special laila needs: No Agree to transfusion: No Financial difficulty paying for basics: Decline to Answer Pertinent Exam Findings alert, oriented x 3, regular rate & rhythm and procedure specific exam findings (Mild tenderness in epigastric area otherwise soft nondistended) Recommendations Surgery/Procedure today (EGD with possible biopsy) Coding Level of Care Code Acute Workers Compensation Coordinator for Jason Cespedes
--- NOTE | 2021-12-19 08:10 | ANES.PREANE2 ---
Pre-Anesthetic Assessment Height/Weight: Height 1.65 m Weight 77.111 kg Temp Pulse Resp BP Pulse Ox 97 F L 70 18 137/80 97 12/19/21 06:40 12/19/21 06:40 12/19/21 06:40 12/19/21 06:40 12/19/21 06:40 Preop Diagnosis: Epigastric pain Operation Date: 12/19/21 08:00 Proposed Procedures p EGD 06570,K21.9(Not Applicable) - Mark Crandall MD Familial anesthetic complications: none Was Beta Hallie taken within 24 hours: N/A Was Clonidine taken within 24 hours: N/A Last intake: Intake Last Liquid Date 12/18/21 Last Liquid Time 23:15 Last Solid Date 12/18/21 Last Solid Time 23:15 Social Tobacco and No alcohol Exam alert, oriented x 3 and regular rate & rhythm Airway Submandibular: within normal limits Cervical ROM: within normal limits Mallampati: Class II Dentition: false Pulmonary Chronic Obstructive Pulmonary Disease CV/HEM Hypertension and Peripheral Vascular Disease GI Gastroesophageal Reflux Disease and Peptic Ulcer Disease Metabolic Hyperlipidemia Anesthetic Plan ASA status: 3 Anesthesia: MAC Medications/Allergies Home Medications Medication Instructions Recorded Confirmed Last Taken Type zolpidem 10 mg tablet 10 mg PO BEDTIME@00 30 Days #30 tab 06/14/21 12/17/21 12/18/21 Rx lisinopril 20 mg tablet 20 mg PO DAILY 09/19/21 12/17/21 12/18/21 History sucralfate 1 gram tablet (Carafate) 1 g PO Q6H 10 Days #120 tab 09/26/21 12/17/21 12/18/21 Rx pantoprazole 40 mg tablet,delayed 40 mg PO BID 90 Days #180 tab 10/28/21 12/17/21 12/18/21 Rx release amlodipine 10 mg tablet 10 mg PO DAILY #90 tab 12/17/21 12/17/21 12/18/21 Rx buspirone 10 mg tablet 10 mg PO BID 12/17/21 12/17/21 12/18/21 History ergocalciferol (vitamin D2) 1,250 1 unit PO .WKLY 12/17/21 12/17/21 12/18/21 History mcg (50,000 unit) capsule vit C 226 mg-vit E 90 mg-copper 2 1 cap PO DAILY 12/17/21 12/17/21 12/18/21 History mg-zinc 34.8 mg-lutein 5 mg capsule (Eye Multivit-Lutein(C-E-Cu-Zn)) Allergies Allergy/AdvReac Type Severity Reaction Status Date / Time No Known Allergies Allergy Verified 12/19/21 07:30 Current Medications Generic Name Dose Route Start Last Admin Trade Name Freq PRN Reason Stop Dose Admin Sodium Chloride 1,000 mls @ 30 mls/hr 12/19/21 06:30 12/19/21 06:50 Sodium Chloride 0.9% IV 30 mls/hr .Q24H ROSALIE Administration PFSH Anesthesia Medical History Essential hypertension Fibromyalgia Hyperlipidemia Hypertension Insomnia Occult blood positive stool Vitamin B 12 deficiency Vitamin D deficiency Surgical History History of breast lump/mass excision History of colonoscopy with polypectomy (~06/2019) Hx of appendectomy Family History Denies family history of Anesthesia complication Bleeding disorder Social History Smoking and tobacco status: current every day smoker cigarettes Packs smoked per day: 1 Years cigarettes smoked: 30 Second hand smoke exposure: Yes Smoking risk assessment/counseling performed?: No Alcohol intake: never Adopted: No Caregiver/support person: Yes Lives independently: Yes Household members: spouse Housing: House Marital status: Highest education level completed: High School Graduate service: No Current occupational status: retired Current occupational exposures/hazards: No Pets and animals: Yes History of recent travel: Yes Sexually active: Yes Current gender identity: Female Laila/Restoration: Protestant Special laila needs: No Agree to transfusion: No Financial difficulty paying for basics: Decline to Answer Data Anesthesia Cardiac Studies: Echocardiogram Ultrasound 08/03/20
[2021-12-19 08:15] VITALS: BP 121/68; PULSE 60; RESP 20; TEMP 36.4; O2SAT 100
[2021-12-19 08:20] VITALS: BP 129/70; PULSE 64; RESP 20; O2SAT 99
[2021-12-19 08:30] VITALS: BP 140/79; PULSE 64; RESP 20; O2SAT 98
--- NOTE | 2021-12-19 14:45 | ANE.PACU2 ---
Inpatient post-anesthesia follow up: Airway intact: Yes Vital signs: Temperature 97.5 F Pulse Rate 64 Respiratory Rate 20 Blood Pressure 140/79 Pulse Oximetry 98 Oxygen Delivery Me thod Room Air Oxygen Flow Rate 2 Fraction of Inspir ed Oxygen Hydration adequate: Yes Nausea and vomiting: No Pain level: 1 Mental status: Baseline
== END 2021-12-19 08:44 | disposition home or self-care (01) ==
PROVIDERS: PCP Registered Nurse; Visit Provider Surgery
PROC: 0DJ08ZZ Inspection of Upper Intestinal Tract, Via Natural or Artificial Opening Endoscopic (ICD-10-PCS; CPT 43235; principal; 2021-12-19 08:00)
DX: R13.10 Dysphagia, unspecified (principal); K21.9 Gastro-esophageal reflux disease without esophagitis; K29.50 Unspecified chronic gastritis without bleeding; B96.81 Helicobacter pylori [H. pylori] as the cause of diseases classified elsewhere; M79.7 Fibromyalgia; E78.5 Hyperlipidemia, unspecified; I10 Essential (primary) hypertension; F17.210 Nicotine dependence, cigarettes, uncomplicated
CPT/HCPCS: 43239; 88305; 88342; J7030

== ENCOUNTER → 2022-01-22 09:05 | Outpatient (BNVA) | payer MEDICARE, SELFPAY | PROVIDERS: PCP Registered Nurse; Visit Provider Surgery | DX: Z09 Encounter for follow-up examination after completed treatment for conditions other than malignant neoplasm (principal); K82.4 Cholesterolosis of gallbladder; K29.70 Gastritis, unspecified, without bleeding | CPT/HCPCS: 99213 ==

== ENCOUNTER → 2022-06-23 09:08 | Outpatient (BNVA) | payer MEDICARE, SELFPAY | PROVIDERS: PCP Registered Nurse; Visit Provider Registered Nurse | DX: R10.9 Unspecified abdominal pain (principal); F51.01 Primary insomnia; R09.1 Pleurisy | CPT/HCPCS: 81000 ==

== ENCOUNTER 2022-07-14 11:22 | Outpatient (CLI) | payer MEDICARE, SELFPAY ==
--- NOTE | 2022-07-14 | CT_ITS ---
WS: [id number] CT CHEST TECHNIQUE: Noncontrast CT of the chest with coronal and sagittal reformatted images. CLINICAL INFORMATION: ABN CXR COMPARISON: Radiograph July 14, 2022 DLP: 295.[address] scans at [facility] use at least one of these dose optimization techniques: automated e xposure control; mA and/or kV adjustment per patient size (includes targeted exams where dose is matc hed to clinical indication); or iterative reconstruction. FINDINGS: Moderate chronic emphysematous changes. Heterogeneous LEFT hilar mass/lymphadenopathy measuring 3.1 x 1.5 cm along the LEFT hilum and AP window. In addition, LEFT upper lobe mass anteriorly abutting the pleura measuring 1.8 x 1.4 x 2.1 cm. Adjacent satellite nodule measuring 4 mm. Small amount of surro unding hazy infiltrate. Findings most compatible with neoplasm. This can be further evaluated with br onchoscopy. Subpleural fibrotic opacities in the lung apices. Subpleural opacity RIGHT upper lobe measuring 5 mm. Hazy inflammatory appearing infiltrates in the RIGHT upper lobe anteriorly. Bronchiectasis with infl ammatory infiltrates and subsegmental atelectasis in the RIGHT middle lobe, RIGHT lower lobe, and LEF T lower lobe. A few calcified granulomas. Moderate thoracic kyphosis. Hypertrophic changes thoracic spine. Enlarged pretracheal lymph node simone uring 13 mm. Prominent AP window lymph nodes. Prominent peribronchial and RIGHT hilar lymph nodes. No subcarinal lymphadenopathy. IMPRESSION: 1. LEFT hilar heterogeneous mass/lymphadenopathy measuring 3.1 x 1.5 CM. In addition, LEFT upper lob e masslike opacity suspicious for neoplasm measuring 1.8 x 1.4 x 2.1 CM. This involves the adjacent p leura in the LEFT upper lobe anteriorly. Associated satellite nodularity. Findings suspicious for tato plasm. Recommend further evaluation with bronchoscopy. PET CT could also be used in further evaluatio n. 2. Slightly enlarged anterior mediastinal lymph nodes involving the AP window, pretracheal, and RIGH T hilar/peribronchial. 3. Subpleural fibrotic opacities in the lung apices. 4. Subsegmental atelectasis in RIGHT middle lobe with some tree-in-bud nodularity with bronchiectasi s likely inflammatory. Similar-appearing inflammatory infiltrates in the RIGHT upper lobe anteriorly and both lower lobes.
--- NOTE | 2022-07-14 12:15 | USCV_ITS ---
Indigo Rosenberg Age: 72 Gender: F : 1950 Exam Date: 07/14/2022 12:08 Ordering Phys: Kiran Gilbert MD (Andy) ([email or web address] [place]) Technologist: CT [place] [facility] [place]: stenosis Risk Factors: Previous Vascular Surgery: Right Brachial BP: / Left Brachial BP: / Right Left Velocity (cm/s) Spectral Plaque Velocity (cm/s) Spectral Plaque Syst/Diast Broadening Syst/Diast Broadening 41.30/ 8.90 Prox CCA 75.20 / 17.60 55.90/ 9.40 Mid CCA 99.30 / 20.30 54.90/ 10.50 Distal CCA 67.50 / 17.30 101.20/22.30 Prox ICA 109.10/ 23.90 86.20/ 24.00 Mid ICA 88.80 / 20.00 96.20/ 28.00 Distal ICA 75.00 / 26.30 280.30 ECA 146.40 1.81 ICA/CCA 1.10 Antegrade Vertebral Antegrade 48.10/ 15.70 cm/s 37.50/ 11.00 cm/s Bi Subclavian Bi 94.50 145.7 0 FINDINGS diffuse plq noted, borderline stenosis rt and left CONCLUSIONS Right ICA stenosis <50%. Moderate atheromatous plaque right carotid bulb/ICA. Left ICA stenosis <50%. Moderate atheromatous plaque left carotid bulb/ICA. Normal antegrade Doppler flow noted in the right vertebral artery. Normal antegrade Doppler flow noted in the left vertebral artery. Oscar Valentino MD (Electronically Signed) Final Date: 14 July 2022 15:52 S
--- NOTE | 2022-07-14 12:31 | XRR_ITS ---
PROCEDURE INFORMATION: Exam: XR Chest Exam date and time: 07/14/2022 12:34 PM Age: 72 years old Clinical indication: Condition or disease; Lung condition and disease; Pleurisy; Patient HX: Left lung struggling to get air in x 1 month; Additional info: R09.1 - pleurisy TECHNIQUE: Imaging protocol: Radiologic exam of the chest. Views: 2 views. COMPARISON: CTA HEAD/NECK 05/19/2020 2:37 PM FINDINGS: Lungs: Ill-defined opacity projecting over the left lung apex on the frontal view, difficult to locate on the lateral view. No pulmonary vascular congestion, pulmonary edema or pneumonia. Pleural spaces: No pleural effusion or pneumothorax. Heart/Mediastinum: The cardiac silhouette is not enlarged. The mediastinal contours are normal. Bones/joints: There are multilevel bridging osteophytes in the spine. Soft tissues: Bilateral epicardial fat pads. XR/XR chest 2V* [id number] IMPRESSION: Possible left upper lobe mass. Recommend CT CHEST.
== END 2022-07-14 11:23 | disposition home or self-care (01) ==
PROVIDERS: PCP Registered Nurse; Visit Provider Thoracic Surgery (Cardiothoracic Vascular Surgery)
DX: I65.23 Occlusion and stenosis of bilateral carotid arteries (principal)
CPT/HCPCS: 71046; 71250; 93880

== ENCOUNTER 2022-07-19 09:41 | Outpatient (CLI) | payer MEDICARE, SELFPAY ==
--- NOTE | 2022-07-19 | PETR_ITS ---
PROCEDURE INFORMATION: Exam: PET/CT Skull Base to Mid-thigh Exam date and time: 07/19/2022 11:29 AM Age: 72 years old Clinical indication: Abnormal findings of lung field LABS AND CLINICAL REPORTS: Glucose: 82 mg/dl Treatment strategy for malignancy (PET staging): Initial Staging (PI) TECHNIQUE: Imaging protocol: Following at least four-hour fasting and following the injection of F-18-FDG, low dose CT images were obtained. Then, PET images were obtained. Attenuation corrected images were constructed using the CT scan. Fused images of PET and CT were reviewed. The standardized uptake values (SUV) reported below are maximum values within a region of interest, expressed in gm/ml. Exam includes orbital meatal line to mid-thigh. Radiopharmaceutical: 14.84 mCi F-18 FDG (Fluorodeoxyglucose), IV. Time of imaging post radiopharmaceutical administration: 46.2 on 7 minutes. Injection site: Left antecubital vein COMPARISON: 1. CT chest 07/14/2022. 2. XR chest 07/14/2022. FINDINGS: Brain: Visualized brain has normal physiologic uptake. Pharynx: No abnormal uptake. Larynx: No abnormal uptake. Lungs, pleura and trachea: In the left upper lobe, at the anterolateral aspect of the apicoposterior segment, a pleural-based FDG avid mass is 2.0 x 1.4 x 2.6 cm (TR x AP x CC), which is unchanged by my measurements from the comparison CT on 07/14/2022. Its SUV max is 10.0, which is consistent with malignancy. Biopsy is recommended. A satellite nodule posteromedial to it is 0.5 x 0.5 x 0.6 cm. Its SUV max is 4.3. There are no FDG avid right pulmonary nodules. No pleural effusion. Mild centrilobular emphysema. Subpleural fibrotic opacities at the lung apices are not FDG avid. Mild platelike atelectasis or scarring in the right middle lobe is not FDG avid. Heart: Normal physiologic uptake. Coronary arteries: Moderate coronary artery calcification. Yes that is the short answer we put her on the market at a time when most Is got good hang on 2nd I back so what the the yes Mediastinal space: No abnormal uptake. Liver: No abnormal uptake. Gallbladder and bile ducts: Stable cholelithiasis without evidence of cholecystitis. A 3 mm calcified gallstone is unchanged from the CT on 09/19/2021. Pancreas: No abnormal uptake. Spleen: No abnormal uptake. Adrenal glands: No abnormal uptake. Kidneys and ureters: Normal physiologic uptake. Stomach and bowel: Moderate sigmoid diverticulosis without CT evidence of diverticulitis. Diffuse FDG avidity in a 10 cm segment of the proximal sigmoid colon is nonspecific. The segment is collapsed, which limits evaluation of it is wall. Its SUV max is 7.9 (image 132). It may be physiologic. However, low-grade diverticulitis, colitis or neoplasia cannot be confidently excluded. Appendix: Post appendectomy. Vasculature: No abnormal uptake. Lymph nodes: Left hilar lymphadenopathy has an SUV max of 14.5. A subaortic/AP window lymph node is 1.0 x 0.8 cm. Its SUV max is 5.1. An enlarged precarinal/right lower paratracheal lymph node is 1.3 x 1.3 cm. Its SUV max is 3.6, which is borderline. SUV max at the right hilum is 3.7, which is borderline. Bones/joints: No metabolically active areas. Soft tissues: Minor extravasation of FDG at the left antecubital injection site. PET/PET [facility] INITIAL [id number] IMPRESSION: 1. In the left upper lobe, at the anterolateral aspect of the apicoposterior segment, a pleural-based FDG avid mass is 2.0 x 1.4 x 2.6 cm (TR x AP x CC), which is unchanged by my measurements from the comparison CT on 07/14/2022. Its SUV max is 10.0, which is consistent with malignancy. Biopsy is recommended. 2. Left hilar malignant lymphadenopathy has an SUV max of 14.5. A subaortic/AP window lymph node is 1.0 x 0.8 cm. Its SUV max is 5.1. 3. An enlarged precarinal/right lower paratracheal lymph node is 1.3 x 1.3 cm. Its SUV max is 3.6, which is borderline. SUV max at the right hilum is 3.7, which is borderline. 4. Stable cholelithiasis without evidence of cholecystitis. A 3 mm calcified gallstone is unchanged from the CT on 09/19/2021. 5. Moderate sigmoid diverticulosis without CT evidence of diverticulitis. Diffuse FDG avidity in a 10 cm segment of the proximal sigmoid colon is nonspecific. Its SUV max is 7.9. It may be physiologic. However, low-grade diverticulitis, colitis or neoplasia cannot be confidently excluded. Correlate clinically.
== END 2022-07-19 09:42 | disposition home or self-care (01) ==
LOC: RAD 09:46
PROVIDERS: PCP Registered Nurse; Visit Provider Registered Nurse
DX: R91.8 Other nonspecific abnormal finding of lung field (principal)
CPT/HCPCS: 78815; A9552

== ENCOUNTER → 2022-07-22 13:52 | Outpatient (BNVA) | payer MEDICARE, SELFPAY | PROVIDERS: PCP Registered Nurse; Visit Provider Internal Medicine Pulmonary Disease | DX: R91.8 Other nonspecific abnormal finding of lung field (principal); J43.9 Emphysema, unspecified; F17.210 Nicotine dependence, cigarettes, uncomplicated; R59.0 Localized enlarged lymph nodes | CPT/HCPCS: 99204 ==

== ENCOUNTER 2022-07-29 05:31 | Day surgery (SDC) | payer MEDICARE, SELFPAY ==
[2022-07-25 13:26] VITALS: BMI 27.1
[2022-07-29] VITALS (11 sets, daily range): BP systolic 127–160; BP diastolic 61–94; PULSE 64–79; RESP 16–22; TEMP 36.1–36.5; O2SAT 91–100
[2022-07-29] MEDS: sodium chloride 0.9% 1,000 ML 30 ML IV (06:25)
--- NOTE | 2022-07-29 06:40 | ANES.PREANE2 ---
Pre-Anesthetic Assessment Height/Weight: Height 1.65 m Weight 73.936 kg Temp Pulse Resp BP Pulse Ox O2 Del Method 97.0 F L 64 16 160/71 96 07/29/22 06:07 07/29/22 06:07 07/29/22 06:07 07/29/22 06:07 07/29/22 06:07 07/29/22 06:07 Preop Diagnosis: Epigastric pain Operation Date: 07/29/22 07:00 Proposed Procedures p ION/EBUS, 92720, 26448, 21212, 51987, 06808, 59520, 89224, 88791, 18564, 26310, 52364, 28973,R91.8(Not Applicable) - James Cornejo MD s Ebus(Not Applicable) - James Cornejo MD Familial anesthetic complications: None Was Beta Hallie taken within 24 hours: N/A Was Clonidine taken within 24 hours: N/A Last intake: Intake Last Liquid Date 07/28/22 Last Liquid Time 22:00 Last Solid Date 07/28/22 Last Solid Time 20:00 Social Tobacco and No alcohol Exam alert, oriented x 3, clear to auscultation bilaterally and regular rate & rhythm Airway Mallampati: Class II Dentition: false Pulmonary Chronic Obstructive Pulmonary Disease CV/HEM Hypertension and Peripheral Vascular Disease GI Gastroesophageal Reflux Disease and Peptic Ulcer Disease Anesthetic Plan ASA status: 3 Anesthesia: General Risk of > 500 ml blood loss (7ml/kg in children): No Medications/Allergies Home Medications Medication Instructions Recorded Confirmed Last Taken Type ergocalciferol (vitamin D2) 1,250 1 unit PO .WKLY #30 caps 04/18/22 07/29/22 07/22/22 Rx mcg (50,000 unit) capsule zolpidem 10 mg tablet 10 mg PO BEDTIME@00 30 days #30 06/23/22 07/29/22 07/28/22 Rx tabs ipratropium 0.5 mg-albuterol 3 mg 3 ml inhalation Q6H 30 days #180 mL 07/23/22 07/29/22 07/28/22 Rx (2.5 mg base)/3 mL nebulization soln nebulizer with supplies #1 ea 07/23/22 07/25/22 07/25/22 Rx amlodipine 10 mg tablet 10 mg PO DAILY 07/25/22 07/29/22 07/28/22 History buspirone 10 mg tablet 10 mg PO BID PRN Anxiety 07/25/22 07/29/22 07/28/22 History fluticasone fur. 100 mcg-umeclid 1 inh inhalation DAILY 07/25/22 07/29/22 Unknown History 62.5 mcg-vilant 25 mcg inhalat.powder (Trelegy Ellipta) ibuprofen 200 mg capsule 400 mg PO Q6H PRN Pain 07/25/22 07/29/22 Unknown History lisinopril 20 mg tablet 20 mg PO DAILY 07/25/22 07/29/22 07/28/22 History pantoprazole 40 mg tablet,delayed 40 mg PO DAILY 07/25/22 07/29/22 07/28/22 History release sucralfate 1 gram tablet (Carafate) 1 g PO BID 07/25/22 07/29/22 07/28/22 History Allergies Allergy/AdvReac Type Severity Reaction Status Date / Time No Known Allergies Allergy Verified 07/25/22 13:16 Current Medications Generic Name Dose Route Start Last Admin Trade Name Freq PRN Reason Stop Dose Admin Sodium Chloride 1,000 mls @ 30 mls/hr 07/29/22 06:00 07/29/22 06:25 Sodium Chloride 0.9% IV 07/30/22 05:59 30 mls/hr .Q24H ROSALIE Administration PFSH Anesthesia Medical History Essential hypertension Fibromyalgia Hyperlipidemia Hypertension Insomnia Occult blood positive stool Vitamin B 12 deficiency Vitamin D deficiency Surgical History History of breast lump/mass excision History of colonoscopy with polypectomy (~06/2019) Hx of appendectomy Family History Denies family history of Anesthesia complication Bleeding disorder Social History Smoking and tobacco status: current every day smoker cigarettes Packs smoked per day: 1 Years cigarettes smoked: 30 Second hand smoke exposure: Yes Smoking risk assessment/counseling performed?: No Alcohol intake: never Adopted: No Caregiver/support person: Yes Lives independently: Yes Household members: spouse Housing: House Marital status: Highest education level completed: High School Graduate service: No Current occupational status: retired Current occupational exposures/hazards: No Pets and animals: Yes History of recent travel: Yes Sexually active: Yes Current gender identity: Female Laila/Hoahaoism: Anglican Special laila needs: No Agree to transfusion: No Financial difficulty paying for basics: Decline to Answer Data Anesthesia Cardiac Studies: Echocardiogram Ultrasound 08/03/20
--- NOTE | 2022-07-29 06:56 | W.PM.OPSUD ---
Surgery/Procedure H&P Update DATE OF PROCEDURE: July 29, 2022 DATE H&P PERFORMED: 07/22/22 CHANGES TO PREVIOUS DOCUMENTATION: None PREOP DIAGNOSIS: Epigastric pain PRIMARY INDICATION FOR PROCEDURE: Left upper lobe PET active lesion suspicious for malignancy Protective mediastinal/hilar lymph nodes-suspicious for malignancy PLANNED PROCEDURE: Operation Date: 07/29/22 07:00 Proposed Procedures p ION/EBUS, 18909, 62633, 76789, 50416, 20416, 89833, 89184, 42414, 10625, 75328, 79214, 16843,R91.8(Not Applicable) - James Cornejo MD s Ebus(Not Applicable) - James Cornejo MD
[2022-07-29] MEDS: lidocaine 1% INJ 20 mL XX (07:21)
--- NOTE | 2022-07-29 07:42 | SC_ITS ---
WS: [id number] Exam: C-arm FL for Bronchoscopy Date/Time of Exam: 07/29/2022 9:27 AM Reason For Exam: ION Single anterior posterior C-arm image of the upper left chest is submitted for evaluation. The image depicts an endotracheal tube ending about 3 cm above the kobe. Ill-defined soft tissue de nsity in the left upper lobe as previously described. No other significant finding on this limited st udy.
[2022-07-29] MEDS: sodium chloride 0.9% 1,000 ML 100 ML IV (08:00)
--- NOTE | 2022-07-29 09:00 | P.OP_ITS ---
Operative Report Date of procedure: July 29, 2022 Pre-op diagnosis: Preop Diagnosis Procedure done: 62552 Dx Bronchoscope w/BAL 27718 Bronch with computer image guided Navigational Bronchoscopy 06455 Bronchoscopy w/Transbronchial lung biopsy(s), single lobe 81956 Bronchoscopy w/Transbronchial needle aspiration biopsy(s), tracheal, main stem, and/or lobar bronchus 47904 Bronchoscopy w/ therapeutic aspiration of the tracheobronchial tree (clearance of airway secretions, removal of mucus plugs) 83676 EBUS Sampling 1/2 nodes 49416 EBUS Diag or Interven Peripheral lesion (radial EBUS) Brief History: Ms. Indigo Rosenberg is a 72-year-old female with pleuritic chest pain on the left upper lung, shortness of breath and persistent cough-for which her PCP has ordered chest x-ray which showed Ill-defined opacity projecting over the left lung apex.? Subsequently she underwent CT chest on the same day 07/14/2022 which showed left hilar heterogeneous mass/lymphadenopathy measuring 3.1 x 1.5 cm in addition to left upper lobe masslike opacity suspicious for neoplasm measuring 1.8 x 1.4 x 2.1 cm.? This involves adjacent pleura in the left upper lobe anteriorly.? Also noted subsegmental atelectasis right middle lobe with some tree-in-bud nodularity with bronchiectasis likely inflammatory. She underwent PET/CT scan on 07/19/2022 which showed PET avid pleural-based mass in KADIE anterior lateral aspect of the apical posterior segment 2 x 1.4 x 2.6 cm with SUV 10. There is left hilar malignant lymphadenopathy SUV 14.5. Enlarged precarinal/right lower lobe paratracheal lymph node 1.3 x 1.3 with SUV 3.6 which is borderline. Also noted diffuse FDG avidity in proximal sigmoid colon with SUV 7.9. All her findings were concerning for malignancy given her history of smoking 1 ppd 30 years.? She says she quit 06/08/22.Patient has colonoscopy June 2019 which showed a semipedunculated polyp in proximal transverse colon.? Biopsy showed mild low-grade dysplasia with no high-grade dysplasia or malignancy.? Otherwise there is extensive diverticulosis on colonoscopy. Today scheduled for Ion robotic bronchoscopy guided biopsies of Left upper lobe pleural based mass and PET positive mediastinal and right hilar lymphadenopathy Procedure: 03494 Dx Bronchoscope w/BAL 13787 Bronch with computer image guided Navigational Bronchoscopy 41648 Bronchoscopy w/Transbronchial lung biopsy(s), single lobe 07394 Bronchoscopy w/Transbronchial needle aspiration biopsy(s), tracheal, main stem, and/or lobar bronchus 36578 Bronchoscopy w/ therapeutic aspiration of the tracheobronchial tree (clearance of airway secretions, removal of mucus plugs) 87690 EBUS Sampling 1/2 nodes 48276 EBUS Diag or Interven Peripheral lesion (radial EBUS) Indication: Description of the procedure: The procedure was explained to the patient and the consent was obtained. The patient was brought to the OR. Anesthesia: The patient underwent endotracheal intubation for general anesthesia. Local anesthesia: The Kobe, right and left mainstem bronchi were anesthetized with 1% lidocaine, 3 mL. Following induction of general anesthesia, the flexible bronchoscope used for initial inspection and airway clearance (63479). The scope was advanced through the ET tube. The lower trachea mucosa appeared normal, no endotracheal lesion was seen. The kobe was sharp. The kobe, the right and left mainstem bronchi are anesthetized with 1% lidocaine. In a systematic manner bilateral bronchial tree was then examined. The bronchoscope was then introduced into the right mainstem bronchus. The right upper lobe, right middle lobe and right lower lobe bronchi were examined up to the third subsegmental level and no abnormalities were identified. There were significant mucus secretions which were suctioned right away. (18852) The bronchoscope was advanced into the left mainstem bronchus. The mucosa appeared normal with no endobronchial lesions. The left upper lobe, lingula and left lower lobe bronchi were examined up to the third subsegmental level and no abnormalities were identified. Mucosa appeared normal with no endobronchial lesion, active bleeding or mucous plug. There were significant mucus secretions in lower lobe-which were suctioned right away. (84977) After initial inspection as well as airway clearance with flexible broncho scope(98019), ION robotic assisted navigational bronchoscope (94511) was introduced-and left upper lobe lesion was accessed. After confirming the location with radial EBUS (50777), under the fluoroscopy guidance -we were able to obtain biopsies using fine-needle, forceps. 1 pass with each of these instruments were used for touch prep and sent for rapid onsite evaluation- pathology reported seeing malignant cells. Total 3 passes were made with fine- needle and 3 passes were made with forceps and all the samples were placed in formalin for histopathology examination. After wedging the bronchoscope in the anterior subsegment of left upper lobe, 10 mL of saline was instilled, fluid return was 6 mL. This bronchioloalveolar lavage fluid (41642) was mixed with blood and specks of tissue. After making sure there is no active bleeding, ION robotic assisted navigational bronchoscope was retracted and Endobronchial ultrasound (EBUS )was introduced and did surveillance of mediastinal and hilar lymph nodes. There were lymph nodes at the station 11 L, station 7 and station 11 R.. Station 11 L has a large lymph node as well as lymph node but not amenable for biopsy due to close proximity to artery. Fine-needle aspiration biopsies (47990) were performed from station 7.rapid onsite evaluation reported metastatic non-small cell cancer. After taking total 3 passes to get adequate tissue and making sure there is no evidence of bleeding, EBUS was retracted. Samples: A.Left upper lobe lesion 1. Total of 3 passes were made using needle aspiration(43366); 1 pass used for touch prep - reported negative for malignancy; remaining 2 passes were placed in formalin for histopathology 2.Targeting the same area 3 passes were made using forceps (88406); 1 pass used for touch prep - reported positive for malignancy most likely non-small cell cancer; remaining 2 passes were placed in formalin for histopathology 3. Bronchoscope was wedged in the anterior subsegment of left upper lobe, 10 mL of saline was instilled, fluid return was 6 mL. This bronchioloalveolar lavage fluid (01547) was mixed with blood and specks of tissue. A. Station 7-EBUS FNAC 1. Total of 3 passes were made using needle aspiration(85397); 1 pass used for touch prep - reported positive for metastatic non-small cell cancer; remaining to passes were placed in formalin for histopathology Complications: None.The patient was extubated and brought to the PACU in stable condition. Postprocedure chest x-ray: No evidence of pneumothorax Disposition: Patient can be discharged home in stable condition. Pt, and her son are aware that I am going to call them to update final biopsy results once available. Related Problem List Diagnoses (1) Mass of upper lobe of left lung: (2) Mediastinal lymphadenopathy:
--- NOTE | 2022-07-29 09:01 | XR_ITS ---
WS: [id number] Exam: XR chest 1V portable [id number] Date/Time of Exam: 07/29/2022 9:25 AM Reason For Exam: POST PROCEDURE PNEUMOTHORAX Comparison 07/14/2022. Again noted is an ill-defined soft tissue mass in the upper left lobe unchanged in appearance. The vlad ngs are otherwise clear and fully inflated. Normal cardiomediastinal silhouette. No pleural effusions . Bony elements are intact. XR/XR chest 1V portable [id number] IMPRESSION: 1. Ill-defined soft tissue mass in the left upper lobe without significant ayala ge. The remaining lung soto are clear.
[2022-07-29 10:18] LABS: Apprearance, Bronch Wash Bloody (CLEAR); Bronch Source Left Upper Lobe; Color, Bronc Wash Red; Cyto Order Verification Order Verified
[2022-07-29 14:27] LABS: Total Cells Counted Bronch 200
[2022-08-08 08:08] LABS: PD-L1 (Clone 22C3) by IHC BBPL See Report
== END 2022-07-29 10:04 | disposition home or self-care (01) ==
PROVIDERS: PCP Registered Nurse; Visit Provider Internal Medicine Pulmonary Disease
PROC: 0BJ08ZZ Inspection of Tracheobronchial Tree, Via Natural or Artificial Opening Endoscopic (ICD-10-PCS; CPT 31622; principal; 2022-07-29 07:00)
PROC: BB4BZZZ Ultrasonography of Pleura (ICD-10-PCS; 2022-07-29 07:00)
DX: C34.92 Malignant neoplasm of unspecified part of left bronchus or lung (principal); C77.9 Secondary and unspecified malignant neoplasm of lymph node, unspecified; J44.9 Chronic obstructive pulmonary disease, unspecified; I10 Essential (primary) hypertension; K21.9 Gastro-esophageal reflux disease without esophagitis; I73.9 Peripheral vascular disease, unspecified; Z87.11 Personal history of peptic ulcer disease; M79.7 Fibromyalgia; E78.5 Hyperlipidemia, unspecified; F17.210 Nicotine dependence, cigarettes, uncomplicated
CPT/HCPCS: 31624; 31627; 31628; 31629; 31645; 31652; 31654; 71045; 76000; 80503; 87070; 87205; 88112; 88305; 88341; 88342; 89050; J1100; J2405; J2704; J3010; J3490; J7030

== ENCOUNTER 2022-08-15 15:07 | Outpatient (CLI) | payer MEDICARE, SELFPAY ==
--- NOTE | 2022-08-15 16:00 | MR_ITS ---
WS: [id number] MRI BRAIN WITH AND WITHOUT CONTRAST HISTORY: STAGING COMPARISON: CT head 05/18/2020. Recent PET/CT 07/19/2022. TECHNIQUE: Multiplanar imaging performed through the brain with MultiHance 17 ml's IV. No acute infarcts are seen. Payton-white matter differentiation is well preserved. Mild small vessel ischemic disease in the periventricular and subcortical white matter. No large terr itory infarct. No susceptibility artifacts or prior lacunar infarcts. Ventricles and extra-axial spaces are normal. Clivus and pituitary gland are normal. Visualized posterior fossa and brainstem are also normal. Postcontrast images are negative for masses or vascular malformations. Dural venous sinuses are normal. Paranasal sinuses: Well aerated with no significant disease. Mastoid air cells: Normal. Calvarium and scalp: Normal. MR/MR head wo/w con 41793 IMPRESSION: 1. No metastatic disease to the brain. 2. No enhancing masses within the brain. 3. Mild small vessel ischemic disease.
[2022-08-15] MEDS: gadobenate dimeglumine 20 mL vial IV (16:22)
== END 2022-08-15 15:08 | disposition home or self-care (01) ==
LOC: RAD 15:11
PROVIDERS: PCP Registered Nurse; Visit Provider Internal Medicine Hematology & Oncology
DX: R59.0 Localized enlarged lymph nodes (principal); R91.8 Other nonspecific abnormal finding of lung field; I67.82 Cerebral ischemia
CPT/HCPCS: 70553; A9577

== ENCOUNTER → 2022-08-19 13:40 | Outpatient (BNVA) | payer MEDICARE, SELFPAY | PROVIDERS: PCP Registered Nurse; Visit Provider Surgery | DX: C34.90 Malignant neoplasm of unspecified part of unspecified bronchus or lung (principal) | CPT/HCPCS: 99203 ==

== ENCOUNTER 2022-08-21 13:47 | Day surgery (SDC) | payer MEDICARE, SELFPAY ==
[2022-08-21] VITALS (13 sets, daily range): BP systolic 108–166; BP diastolic 49–94; PULSE 61–76; RESP 16–22; TEMP 36.1–36.8; O2SAT 90–100; BMI 27.4
--- NOTE | 2022-08-21 13:55 | XRR_ITS ---
PROCEDURE INFORMATION: Exam: XR Chest Exam date and time: 08/21/2022 3:00 PM Age: 72 years old Clinical indication: Other vascular access device placement or adjustment; Port; Additional info: Postop mediport TECHNIQUE: Imaging protocol: Radiologic exam of the chest. Views: 1 view. COMPARISON: 1. [facility] [id number] 07/19/2022 11:29 AM 2. CR XR chest 1V portable [id number] 07/29/2022 9:27 AM FINDINGS: Tubes, catheters and devices: Right chest port extends to the cavoatrial junction. Lungs: Reticular changes of the interstitium diffusely without pulmonary consolidation. Patchy asymmetric left upper lobe airspace opacity visible stable from comparison representing large pulmonary nodule visible on comparison. Pleural spaces: Unremarkable. No pleural effusion. No pneumothorax. Heart/Mediastinum: Unremarkable. No cardiomegaly. Bones/joints: Unremarkable. XR/XR chest 1V portable [id number] IMPRESSION: 1. No acute abnormality. 2. Unremarkable chest port position.
--- NOTE | 2022-08-21 13:55 | SC_ITS ---
WS: [id number] C-arm FL for CVA 32610 REASON FOR EXAM: Mediport FINDINGS: Chemotherapy port in place over the right chest with right subclavian catheter with the tip at the ca voatrial junction. No pneumothorax. SC/C-arm FL for CVA 20101 IMPRESSION: Right-sided chemotherapy port and catheter placement as above.
--- NOTE | 2022-08-21 14:36 | W.PM.OPSUD ---
Surgery/Procedure H&P Update DATE OF PROCEDURE: August 21, 2022 DATE H&P PERFORMED: 08/19/22 H&P UPDATE INFORMATION: I have reviewed H&P completed within last 30 days, I have examined patient prior to procedure and No changes to prior documentation PREOP DIAGNOSIS: Lung Cancer PLANNED PROCEDURE: Operation Date: 08/21/22 15:20 Proposed Procedures p Portacath Placement 96411, C34.90(Not Applicable) - Zack Muniz DO
[2022-08-21] MEDS: sodium chloride 0.9% 1,000 ML 30 ML IV (14:50)
[2022-08-21] MEDS: ceFAZolin 2,000 MG in sodium chloride 0.9% (plus) 50 ML 100 MG IV (14:50)
--- NOTE | 2022-08-21 14:50 | ANES.PREANE2 ---
Pre-Anesthetic Assessment Height/Weight: Height 1.65 m Weight 74.843 kg Temp Pulse Resp BP Pulse Ox O2 Del Method 98.2 F 76 18 162/94 97 08/21/22 14:07 08/21/22 14:07 08/21/22 14:07 08/21/22 14:07 08/21/22 14:07 08/21/22 14:22 Preop Diagnosis: Lung Cancer Operation Date: 08/21/22 15:20 Proposed Procedures p Portacath Placement 49579, C34.90(Not Applicable) - Zack Muniz DO Familial anesthetic complications: none Was Beta Hallie taken within 24 hours: N/A Was Clonidine taken within 24 hours: N/A Last intake: Intake Last Liquid Date 08/20/22 Last Liquid Time 21:00 Last Solid Date 08/20/22 Last Solid Time 16:00 Social Tobacco and No alcohol Exam alert, oriented x 3 and regular rate & rhythm Airway Submandibular: within normal limits Cervical ROM: within normal limits Mallampati: Class II Dentition: false Pulmonary Chronic Obstructive Pulmonary Disease Lung CA CV/HEM Hypertension and Peripheral Vascular Disease GI Gastroesophageal Reflux Disease Neuropsych Anxiety and Depression Anesthetic Plan ASA status: 3 Anesthesia: Choice Medications/Allergies Home Medications Medication Instructions Recorded Confirmed Last Taken Type ergocalciferol (vitamin D2) 1,250 1 unit PO .WKLY #30 caps 04/18/22 08/21/22 08/19/22 Rx mcg (50,000 unit) capsule zolpidem 10 mg tablet 10 mg PO BEDTIME@00 30 days #30 06/23/22 08/21/22 08/20/22 20:00 Rx tabs nebulizer with supplies #1 ea 07/23/22 08/19/22 07/25/22 Rx amlodipine 10 mg tablet 10 mg PO DAILY 07/25/22 08/21/22 08/20/22 History buspirone 10 mg tablet 10 mg PO BID PRN Anxiety 07/25/22 08/21/22 08/20/22 20:00 History ibuprofen 200 mg capsule 400 mg PO Q6H PRN Pain 07/25/22 08/21/22 08/20/22 History pantoprazole 40 mg tablet,delayed 40 mg PO DAILY 07/25/22 08/21/22 08/20/22 History release sucralfate 1 gram tablet (Carafate) 1 g PO BID 07/25/22 08/21/22 08/20/22 History docusate sodium 100 mg capsule 100 mg PO DAILY PRN Constipation 08/07/22 08/21/22 08/21/22 07:00 History (Colace) fluticasone fur. 100 mcg-umeclid 1 inh inhalation DAILY PRN 08/07/22 08/21/22 08/21/22 06:00 History 62.5 mcg-vilant 25 mcg Shortness Of Breath Or Wheezing inhalat.powder (Trelegy Ellipta) ipratropium 0.5 mg-albuterol 3 mg 3 ml inhalation Q6H PRN 08/07/22 08/21/22 08/21/22 07:00 History (2.5 mg base)/3 mL nebulization Respiratory Distress soln lisinopril 20 mg tablet 20 mg PO DAILY 08/21/22 08/21/22 08/20/22 History Allergies Allergy/AdvReac Type Severity Reaction Status Date / Time No Known Allergies Allergy Verified 08/07/22 09:05 [facility] Anesthesia Medical History Essential hypertension Fibromyalgia Hyperlipidemia Hypertension Insomnia Non-small cell lung cancer Occult blood positive stool Vitamin B 12 deficiency Vitamin D deficiency Surgical History History of breast lump/mass excision History of colonoscopy with polypectomy (~06/2019) Hx of appendectomy Family History Denies family history of Anesthesia complication Bleeding disorder Social History Smoking and tobacco status: current every day smoker cigarettes Packs smoked per day: 1 Years cigarettes smoked: 30 Second hand smoke exposure: Yes Smoking risk assessment/counseling performed?: No Alcohol intake: never Adopted: No Caregiver/support person: Yes Lives independently: Yes Household members: spouse Housing: House Marital status: Highest education level completed: High School Graduate service: No Current occupational status: retired Current occupational exposures/hazards: No Pets and animals: Yes Sexually active: Yes Current gender identity: Female Laila/Spiritism: Sabianism Special laila needs: No Agree to transfusion: No Financial difficulty paying for basics: Decline to Answer Data Anesthesia Cardiac Studies: Echocardiogram Ultrasound 08/03/20
[2022-08-21] MEDS: lidocaine-epi 2% 20 mL INJ INJECTION (15:15)
--- NOTE | 2022-08-21 15:26 | PM.OP ---
Operative Report Date of procedure: August 21, 2022 Pre-op diagnosis: Preop Diagnosis Lung Cancer Post-op diagnosis: same Procedure done: Mediport insertion Implants: PowerPort Surgeon: Dr. Zack Muniz DO Anesthesia: MAC Estimated blood loss (mL): 5 Complications: None apparent Brief History: This very pleasant 72-year-old female who was recently diagnosed with lung cancer. Mediport insertion was requested for chemotherapy access. The risk and benefits were explained and documented. Procedure: The patient was taken to the operating room and placed supine on the operating room table. All bony prominences were padded. She was given IV sedation and monitored throughout the case by the anesthesia personnel. SCDs were placed and turned on. The arms were tucked to the side. Patient received Ancef 2 g preoperatively IV. The bilateral chest wall was prepped and draped in usual sterile fashion using chlorhexidine base prep. Sterile drapes were applied. We did procedure pause prior to beginning. An 18 gauge needle was placed in the right subclavian vein. Dark, nonpulsatile blood was aspirated. A guidewire was placed through the needle centrally toward the atrial/vena caval junction. Fluoroscopy visualized good placement. The needle was removed and the guidewire was clipped to the drape with a hemostat. Further local anesthetic was infiltrated in the soft tissues of the right chest wall and a #15 blade was used to make a horizontal skin incision. A subcutaneous Mediport pocket was created using Bovie cautery, dissecting down through the skin and subcutaneous tissues. Meticulous hemostasis was achieved. The Mediport was sutured in position using 3-0 vicryl suture x2 stitches. A #15 blade was used to make a small skin stephanie around the guidewire insertion area. The Mediport tubing was tunneled through the subcutaneous tissues up to the needle insertion location. A dilator with a peel-away sheath was placed over the guidewire and placed centrally. After measuring the Mediport tubing was cut to length so that the tip would end at the atrial/vena caval junction. The inner cannula and the guidewire were removed, leaving the dilator sheath in place. The Mediport was flushed. The tip of the catheter was inserted through the peel-away sheath and the peel-away sheath removed in the standard fashion. The Mediport was accessed with a straight Sam needle and dark, nonpulsatile blood was aspirated and flushed using heparinized saline to hep-lock the Mediport. Final fluoroscopy visualization showed no kink in the catheter and the tip of the Mediport tubing near the atrial/vena caval junction. Both skin incisions were thoroughly irrigated and suctioned dry. Meticulous hemostasis noted. The dermis was approximated with 3-0 Vicryl in an interrupted fashion. Skin was closed with Dermabond. Patient was awakened from anesthesia and transferred via her cart to the recovery room in stable condition. All needle, sponge, and instrument counts were correct per the operating personnel x2 counts.
[2022-08-21] MEDS: heparin, porcine 1,000 unit/mL INJ 10 mL 10000 UNIT XX (15:28)
--- NOTE | 2022-08-21 15:53 | ANE.PACU2 ---
Inpatient post-anesthesia follow up: Airway intact: Yes Vital signs: Temperature 97 F Pulse Rate 65 Respiratory Rate 19 Blood Pressure 114/52 Pulse Oximetry 93 Oxygen Delivery Me thod Room Air Oxygen Flow Rate Fraction of Inspir ed Oxygen Hydration adequate: Yes Nausea and vomiting: No Pain level: 2 Mental status: Baseline
[2022-08-21] MEDS: oxyCODONE-APAP 5-325 mg Tablet 1 TAB PO (17:12)
== END 2022-08-21 17:30 | disposition home or self-care (01) ==
PROVIDERS: PCP Registered Nurse; Visit Provider Surgery
PROC: (CPT 36561; principal; 2022-08-21 15:00)
DX: C34.90 Malignant neoplasm of unspecified part of unspecified bronchus or lung (principal); J44.9 Chronic obstructive pulmonary disease, unspecified; I10 Essential (primary) hypertension; K21.9 Gastro-esophageal reflux disease without esophagitis; M79.7 Fibromyalgia; E78.5 Hyperlipidemia, unspecified; F17.210 Nicotine dependence, cigarettes, uncomplicated
CPT/HCPCS: 36561; 71045; 76000; 77001; C1788; J0690; J1170; J1644; J2405; J2704; J7030

== ENCOUNTER → 2022-08-27 09:04 | Outpatient (BNVA) | payer MEDICARE, SELFPAY | PROVIDERS: PCP Registered Nurse; Visit Provider Internal Medicine Hematology & Oncology | DX: C34.12 Malignant neoplasm of upper lobe, left bronchus or lung (principal) | CPT/HCPCS: 77300; 77301; 77338; 99214 ==

== ENCOUNTER 2022-09-02 08:53 | Oncology outpatient (recurring) (ONCR) | payer MEDICARE, SELFPAY ==
[2022-08-27 09:36] LABS: Basophils # 0.1 10^3/uL (0.0-0.1); Basophils % 0.6 %; Eosinophils # 0.3 10^3/uL (0.0-0.8); Eosinophils % 2.9 %; Hematocrit 38.8 % (37.0-47.0); Hemoglobin 12.3 g/dL (11.5-15.3); Lymphocytes # 1.2 10^3/uL (0.8-4.8); Lymphocytes % 14.5 %; Mean Corpuscular HGB Conc 31.7 g/dL (30.0-36.0); Mean Corpuscular Hemoglobin 28.7 pg (28.0-34.0); Mean Corpuscular Volume 90.4 fl (81-99); Monocytes # 0.6 10^3/uL (0.2-0.9); Monocytes % 7.1 %; Neutrophils # 6.32 10^3/uL (1.8-7.7); Neutrophils % 74.4 %; Nucleated Red Blood Cells % 0 %; Platelet Count 267 10^3/cmm (130-400); Red Blood Count 4.29 10^6/uL (4.1-5.3); Red Cell Distribution Width 13.4 % (12.1-15.1); White Blood Count 8.5 10^3/uL (4.0-10.0)
[2022-08-27 09:43] VITALS: BP 131/75; PULSE 73; RESP 18; TEMP 37.3; O2SAT 97
[2022-08-27 09:55] LABS: Alanine Aminotransferase 8 U/L (0-33); Albumin Level 4.1 g/dL (3.5-5.2); Alkaline Phosphatase 80 U/L (35-105); Aspartate Amino Transferase 14 U/L (0-32); Blood Urea Nitrogen 13 mg/dL (8-23); Calcium 8.8 mg/dL (8.5-10.5); Carbon Dioxide 24 mmol/L (22-29); Chloride 105 mmol/L (98-107); Globulin 2.9 g/dL (1.3-4.6); Glomerular Filtration Rate 98.8 mL/min (90-130); Glucose 91 mg/dL (65-115); Osmolality Calculated 290 mOsm/kg (285-295); Sodium 140 mmol/L (136-145); Total Bilirubin 0.2 mg/dL (0.15-1.2)
[2022-08-27 10:53] LABS: Anion Gap 15.4 (5-19); Potassium 4.4 mmol/L (3.5-5.1)
--- NOTE | 2022-08-28 11:09 | N.ONRAD NP_ITS ---
Radiation Oncology Consultation Patient Name: Indigo oRsenberg Date of : 1950 Date of Service: 08/28/2022 Attending Physician: Sharad Gerber M.D. Indigo Rosenberg was seen in consultation this morning at the request of Kellee Carmichael M.D. for consideration of thoracic radiotherapy in the management of a recently diagnosed non-small cell lung cancer. The patient evaluated by her primary care physician at [facility] in July for worsening dyspnea. A chest radiograph obtained on July 14, 2022 identified an opacity in the left lung apex. A thoracic CT scan confirmed a 1.8 cm x 1.4 cm x 2.1 cm left upper-lobe mass abutting the pleura, and adjacent satellite nodule measuring 4 mm, and a left hilar mass measuring 3.1 cm x 1.5 cm. A PET scan (independently reviewed in [facility]) ordered on July 19, 2022 described a left upper-lobe mass (SUV 10), a satellite nodule postero-medial to this mass (SUV 4.3), left hilar adenopathy (SUV 14.5), AP window lymphadenopathy (SUV 5.1), a right lower paratracheal lymph node (SUV 3.6) and hypermetabolic activity within a 10 cm segment of the proximal sigmoid colon (SUV 7.9). A bronchoscopy with endobronchial ultrasound-guided biopsy performed on July 29, 2022. 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 PD-L1 results were unable to be quantitated because of an insufficient sample. An MRI of the head did not reveal metastatic disease. The patient was referred for definitive thoracic radiotherapy. I discussed with Ms. Rosenberg [employer] [place] [employer] Staging for lung cancer and specifically, the clinical stage IIIB (T3N3) lung cancer corresponding to her disease. I also reviewed The National Comprehensive Cancer Network Guidelines recommending concurrent chemoradiotherapy for the management of locally advanced lung cancer established by the classic study, RTOG 9410, comparing sequential versus concurrent chemoradiotherapy that demonstrated an overall survival advantage for the concurrent chemoradiotherapy regimen. I would endorse a six week course of thoracic radiotherapy. Preceding radiotherapy, a computed tomographic radiotherapy planning scan with contrast in the treatment position will be acquired and co-registered to the patient's staging PET scan to identify the gross tumor volumes. The potential toxicities of thoracic radiotherapy were reviewed. The patient has verbalized understanding would like to proceed as recommended. The patient???s treatment plan was discussed with Kellee Carmichael M.D. Signed by: Sharad Gerber 08/28/2022 11:08:20 AM
--- NOTE | 2022-09-02 | CT_ITS ---
Radiation Therapy Planning CT images; total exam DLP: 389.09 mGy-cm MTDD
== END 2022-09-05 23:59 | disposition home or self-care (01) ==
PROVIDERS: PCP Registered Nurse; Visit Provider Internal Medicine Hematology & Oncology
DX: C34.12 Malignant neoplasm of upper lobe, left bronchus or lung (principal); C77.8 Secondary and unspecified malignant neoplasm of lymph nodes of multiple regions; F17.210 Nicotine dependence, cigarettes, uncomplicated; R06.00 Dyspnea, unspecified; Z95.828 Presence of other vascular implants and grafts; Z51.0 Encounter for antineoplastic radiation therapy
CPT/HCPCS: 77334; 77470; 80053; 85025; 99204; 99205; 99214

== ENCOUNTER → 2022-09-09 08:05 | Outpatient (BNVA) | payer MEDICARE, SELFPAY | PROVIDERS: PCP Registered Nurse; Visit Provider Nurse Practitioner Family | DX: C34.12 Malignant neoplasm of upper lobe, left bronchus or lung (principal) | CPT/HCPCS: 99214 ==

== ENCOUNTER 2022-09-22 10:52 | Oncology outpatient (recurring) (ONCR) | payer MEDICARE, SELFPAY ==
[2022-09-09 08:33] VITALS: BP 108/67; PULSE 79; RESP 16; TEMP 36; O2SAT 96
[2022-09-09 08:51] LABS: Basophils # 0.1 10^3/uL (0.0-0.1); Basophils % 0.9 %; Eosinophils # 0.4 10^3/uL (0.0-0.8); Eosinophils % 3.5 %; Hemoglobin 12.8 g/dL (11.5-15.3); Lymphocytes # 1.3 10^3/uL (0.8-4.8); Lymphocytes % 12.2 %; Mean Corpuscular Volume 90.5 fl (81-99); Mean Platelet Volume 10.4 fL (7.4-10.4); Monocytes # 0.6 10^3/uL (0.2-0.9); Monocytes % 5.6 %; Neutrophils # 7.97 10^3/uL (1.8-7.7); Neutrophils % 77.5 %; Nucleated Red Blood Cells % 0 %; Platelet Count 288 10^3/cmm (130-400); Red Blood Count 4.42 10^6/uL (4.1-5.3); Red Cell Distribution Width 13.3 % (12.1-15.1); White Blood Count 10.3 10^3/uL (4.0-10.0)
[2022-09-09] MEDS: LORazepam 2 mg/mL INJ 1 mL 0.5 MG IVP (09:10)
[2022-09-09 09:35] LABS: Alanine Aminotransferase 7 U/L (0-33); Albumin Level 3.9 g/dL (3.5-5.2); Alkaline Phosphatase 70 U/L (35-105); Anion Gap 16.2 (5-19); Aspartate Amino Transferase 13 U/L (0-32); Blood Urea Nitrogen 8 mg/dL (8-23); Calcium 9.2 mg/dL (8.5-10.5); Carbon Dioxide 24 mmol/L (22-29); Chloride 103 mmol/L (98-107); Globulin 3.1 g/dL (1.3-4.6); Glomerular Filtration Rate 82.7 mL/min (90-130); Glucose 77 mg/dL (65-115); Osmolality Calculated 285 mOsm/kg (285-295); Potassium 4.2 mmol/L (3.5-5.1); Sodium 139 mmol/L (136-145); Total Bilirubin 0.2 mg/dL (0.15-1.2)
[2022-09-09] MEDS: sodium chloride 0.9% 250 ML 75 ML IV (11:24)
[2022-09-09] MEDS: palonosetron 0.25 mg/5 mL SDV IVP (11:26)
[2022-09-09] MEDS: famotidine 20 mg/2 mL INJ IVP (11:28)
[2022-09-09] MEDS: diphenhydrAMINE 50 mg/mL SDV 1mL 25 MG IVP (11:29)
[2022-09-09] MEDS: dexamethasone 20 MG in sodium chloride 0.9% 50 ML 188 MG IV (11:31)
[2022-09-09] MEDS: PACLitaxeL 90 MG in sodium chloride 0.9%(non-DEHP) 250 ML 265 MG IV (11:50)
[2022-09-09] MEDS: diphenhydrAMINE 50 mg/mL SDV 1mL 12.5 MG IVP (12:10)
[2022-09-09 12:45] VITALS: BP 121/74; PULSE 78; RESP 16; TEMP 36.7; O2SAT 94
--- NOTE | 2022-09-15 11:29 | ONCRAD TMN_ITS ---
Radiation Oncology Treatment Management Note Patient Name: Indigo Rosenberg Date of : 1950 Date of Service: 09/15/2022 Attending Physician: Sharad Gerber M.D. Indigo Rosenberg is a 72 year old white female recently diagnosed with a clinical stage IIIB (T3N3) non-small cell lung cancer. The patient evaluated by her primary care physician at [facility] in July for worsening dyspnea. A chest radiograph obtained on July 14, 2022 identified an opacity in the left lung apex. A thoracic CT scan confirmed a 1.8 cm x 1.4 cm x 2.1 cm left upper-lobe mass abutting the pleura, and adjacent satellite nodule measuring 4 mm, and a left hilar mass measuring 3.1 cm x 1.5 cm. A PET scan (independently reviewed in [facility]) ordered on July 19, 2022 described a left upper-lobe mass (SUV 10), a satellite nodule postero-medial to this mass (SUV 4.3), left hilar adenopathy (SUV 14.5), AP window lymphadenopathy (SUV 5.1), a right lower paratracheal lymph node (SUV 3.6) and hypermetabolic activity within a 10 cm segment of the proximal sigmoid colon (SUV 7.9). A bronchoscopy with endobronchial ultrasound-guided biopsy performed on July 29, 2022. 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 PD-L1 results were unable to be quantitated because of an insufficient sample. An MRI of the head did not reveal metastatic disease. The patient has received 10 Gy of a prescribed 60 [place] with an intensity modulated radiotherapy plan utilizing a step and shoot treatment technique. She has been prescribed carboplatin (AUC 2) and Abraxane (80 mg/m???) weekly during therapy. Upon review of systems, she denied new pulmonary symptoms. On physical examination, the patient weighed 164 lbs. Her temperature was 97.4 ???F and the blood pressure was 126/62 mmHg. The pulse was 81 bpm and her respiratory rate was 18. Oxygen saturation while breathing room air was 94%. Bilateral rales were auscultated. Continue thoracic radiotherapy as prescribed. Signed by: Sharad Gerber 09/15/2022 11:27:36 AM
[2022-09-16 08:55] VITALS: BP 118/57; PULSE 80; RESP 18; TEMP 37.3; O2SAT 98
[2022-09-16 08:58] LABS: Basophils % 0.4 %; Eosinophils # 0.2 10^3/uL (0.0-0.8); Eosinophils % 2.4 %; Hematocrit 38.8 % (37.0-47.0); Hemoglobin 12.4 g/dL (11.5-15.3); Lymphocytes # 0.6 10^3/uL (0.8-4.8); Lymphocytes % 6.6 %; Mean Corpuscular Hemoglobin 28.8 pg (28.0-34.0); Mean Corpuscular Volume 90.2 fl (81-99); Mean Platelet Volume 10.5 fL (7.4-10.4); Monocytes # 0.5 10^3/uL (0.2-0.9); Monocytes % 5.7 %; Neutrophils # 7.89 10^3/uL (1.8-7.7); Neutrophils % 84.5 %; Nucleated Red Blood Cells % 0 %; Platelet Count 254 10^3/cmm (130-400); Red Cell Distribution Width 13.5 % (12.1-15.1); White Blood Count 9.3 10^3/uL (4.0-10.0)
[2022-09-16 09:10] LABS: Alanine Aminotransferase 10 U/L (0-33); Albumin Level 3.8 g/dL (3.5-5.2); Alkaline Phosphatase 72 U/L (35-105); Anion Gap 16.2 (5-19); Aspartate Amino Transferase 24 U/L (0-32); Blood Urea Nitrogen 9 mg/dL (8-23); Calcium 8.8 mg/dL (8.5-10.5); Carbon Dioxide 24 mmol/L (22-29); Chloride 106 mmol/L (98-107); Globulin 3.1 g/dL (1.3-4.6); Glomerular Filtration Rate 82.7 mL/min (90-130); Glucose 90 mg/dL (65-115); Osmolality Calculated 292 mOsm/kg (285-295); Potassium 4.2 mmol/L (3.5-5.1); Sodium 142 mmol/L (136-145); Total Bilirubin 0.3 mg/dL (0.15-1.2); Total Protein 6.9 g/dL (6.6-8.7)
[2022-09-16] MEDS: sodium chloride 0.9% 250 ML 75 ML IV (10:36)
[2022-09-16] MEDS: ondansetron 2 mg/ML SDV 2 mL 8 MG IVP (10:37)
[2022-09-16] MEDS: paclitaxel protein-bound 150 MG in empty flexible container 1 EACH 60 MG IV (11:08)
[2022-09-16] MEDS: CARBOplatin 230 MG in sodium chloride 0.9% 500 ML 523 MG IV (12:07)
[2022-09-16 14:06] VITALS: BP 132/75; PULSE 83; RESP 18; TEMP 37.4; O2SAT 96
--- NOTE | 2022-09-22 11:34 | ONCRAD TMN_ITS ---
Radiation Oncology Treatment Management Note Patient Name: Indigo Rosenberg Date of : 1950 Date of Service: 09/22/2022 Attending Physician: Sharad Gerber M.D. Indigo Rosenberg is a 72 year old white female recently diagnosed with a clinical stage IIIB (T3N3) non-small cell lung cancer. The patient evaluated by her primary care physician at [facility] in July for worsening dyspnea. A chest radiograph obtained on July 14, 2022 identified an opacity in the left lung apex. A thoracic CT scan confirmed a 1.8 cm x 1.4 cm x 2.1 cm left upper-lobe mass abutting the pleura, and adjacent satellite nodule measuring 4 mm, and a left hilar mass measuring 3.1 cm x 1.5 cm. A PET scan (independently reviewed in [facility]) ordered on July 19, 2022 described a left upper-lobe mass (SUV 10), a satellite nodule postero-medial to this mass (SUV 4.3), left hilar adenopathy (SUV 14.5), AP window lymphadenopathy (SUV 5.1), a right lower paratracheal lymph node (SUV 3.6) and hypermetabolic activity within a 10 cm segment of the proximal sigmoid colon (SUV 7.9). A bronchoscopy with endobronchial ultrasound-guided biopsy performed on July 29, 2022. 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 PD-L1 results were unable to be quantitated because of an insufficient sample. An MRI of the head did not reveal metastatic disease. The patient has received 20 Gy of a prescribed 60 [place] with an intensity modulated radiotherapy plan utilizing a step and shoot treatment technique. She has been prescribed carboplatin (AUC 2) and Abraxane (80 mg/m???) weekly during therapy. Upon review of systems, she denied any complaints. On physical examination, the patient weighed 164 lbs. Her temperature was 97.2 ???F and the blood pressure was 125/58 mmHg. The pulse was 81 bpm and her respiratory rate was 18. Oxygen saturation while breathing room air was 99%. Decreased breath sounds were auscultated. Continue thoracic radiotherapy as planned. Signed by: Sharad Gerber 09/22/2022 11:33:01 AM
== END 2022-09-22 10:55 | disposition home or self-care (01) ==
PROVIDERS: Nurse Practitioner Family; PCP Registered Nurse; Visit Provider Internal Medicine Hematology & Oncology
DX: C34.12 Malignant neoplasm of upper lobe, left bronchus or lung; C77.8 Secondary and unspecified malignant neoplasm of lymph nodes of multiple regions; F17.210 Nicotine dependence, cigarettes, uncomplicated; Z79.899 Other long term (current) drug therapy; Z95.828 Presence of other vascular implants and grafts
CPT/HCPCS: 77014; 77336; 77386; 77427; 80053; 85025; 96360; 96367; 96375; 96411; 96413; 96415; 96417; 99024; 99214; J1100; J1200; J2060; J2405; J2469; J3490; J7040; J7050; J9045; J9264; J9267

== ENCOUNTER → 2022-09-30 07:57 | Outpatient (BNVA) | payer MEDICARE, SELFPAY | PROVIDERS: PCP Registered Nurse; Visit Provider Nurse Practitioner Family | DX: C34.12 Malignant neoplasm of upper lobe, left bronchus or lung (principal) | CPT/HCPCS: 77427; 99214 ==

== ENCOUNTER 2022-10-03 10:27 | Oncology outpatient (recurring) (ONCR) | payer MEDICARE, SELFPAY ==
[2022-09-23 08:23] VITALS: BP 110/62; PULSE 85; RESP 18; TEMP 36.2; O2SAT 98
[2022-09-23 08:27] LABS: Basophils % 0.5 %; Eosinophils # 0.2 10^3/uL (0.0-0.8); Eosinophils % 2.6 %; Hematocrit 37.3 % (37.0-47.0); Hemoglobin 11.8 g/dL (11.5-15.3); Lymphocytes # 0.4 10^3/uL (0.8-4.8); Lymphocytes % 4.9 %; Mean Corpuscular HGB Conc 31.6 g/dL (30.0-36.0); Mean Corpuscular Volume 91.6 fl (81-99); Mean Platelet Volume 10.6 fL (7.4-10.4); Monocytes # 0.4 10^3/uL (0.2-0.9); Monocytes % 4.1 %; Neutrophils # 7.36 10^3/uL (1.8-7.7); Neutrophils % 87.2 %; Nucleated Red Blood Cells % 0 %; Platelet Count 233 10^3/cmm (130-400); Red Blood Count 4.07 10^6/uL (4.1-5.3); Red Cell Distribution Width 13.4 % (12.1-15.1); White Blood Count 8.4 10^3/uL (4.0-10.0)
[2022-09-23 08:51] LABS: Alanine Aminotransferase 9 U/L (0-33); Albumin Level 3.9 g/dL (3.5-5.2); Alkaline Phosphatase 75 U/L (35-105); Anion Gap 14.7 (5-19); Aspartate Amino Transferase 12 U/L (0-32); Blood Urea Nitrogen 10 mg/dL (8-23); Calcium 8.8 mg/dL (8.5-10.5); Carbon Dioxide 22 mmol/L (22-29); Chloride 103 mmol/L (98-107); Creatinine Clr Calc Pharmacy 66.2528; Globulin 2.9 g/dL (1.3-4.6); Glomerular Filtration Rate 98.8 mL/min (90-130); Glucose 92 mg/dL (65-115); Osmolality Calculated 281 mOsm/kg (285-295); Potassium 3.7 mmol/L (3.5-5.1); Sodium 136 mmol/L (136-145); Total Bilirubin 0.3 mg/dL (0.15-1.2); Total Protein 6.8 g/dL (6.6-8.7)
[2022-09-23] MEDS: sodium chloride 0.9% 250 ML 75 ML IV (10:01)
[2022-09-23] MEDS: ondansetron 2 mg/ML SDV 2 mL 8 MG IVP (10:02)
[2022-09-23] MEDS: paclitaxel protein-bound 150 MG in empty flexible container 1 EACH 60 MG IV (10:33)
[2022-09-23] MEDS: CARBOplatin 230 MG in sodium chloride 0.9% 500 ML 523 MG IV (11:26)
[2022-09-23 12:45] VITALS: BP 115/60; PULSE 83; RESP 18; TEMP 37.2; O2SAT 92
--- NOTE | 2022-09-29 11:28 | ONCRAD TMN_ITS ---
Radiation Oncology Treatment Management Note Patient Name: Indigo Rosenberg Date of : 1950 Date of Service: 09/29/2022 Attending Physician: Sharad Gerber M.D. Indigo Rosenberg is a 72 year old white female recently diagnosed with a clinical stage IIIB (T3N3) non-small cell lung cancer. The patient evaluated by her primary care physician at [facility] in July for worsening dyspnea. A chest radiograph obtained on July 14, 2022 identified an opacity in the left lung apex. A thoracic CT scan confirmed a 1.8 cm x 1.4 cm x 2.1 cm left upper-lobe mass abutting the pleura, and adjacent satellite nodule measuring 4 mm, and a left hilar mass measuring 3.1 cm x 1.5 cm. A PET scan ordered on July 19, 2022 described a left upper-lobe mass (SUV 10), a satellite nodule postero-medial to this mass (SUV 4.3), left hilar adenopathy (SUV 14.5), AP window lymphadenopathy (SUV 5.1), a right lower paratracheal lymph node (SUV 3.6) and hypermetabolic activity within a 10 cm segment of the proximal sigmoid colon (SUV 7.9). A bronchoscopy with endobronchial ultrasound-guided biopsy performed on July 29, 2022. 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 PD-L1 results were unable to be quantitated because of an insufficient sample. An MRI of the head did not reveal metastatic disease. The patient has received 30 Gy of a prescribed 60 [place] with an intensity modulated radiotherapy plan utilizing a step and shoot treatment technique. She has been prescribed carboplatin (AUC 2) and Abraxane (80 mg/m???) weekly during therapy. Upon review of systems, she denied any new pulmonary complaints. On physical examination, the patient weighed 162 lbs. Her temperature was 97.1 ???F and the blood pressure was 118/56 mmHg. The pulse was 86 bpm and her respiratory rate was 18. Oxygen saturation while breathing room air was 99%. Decreased breath sounds were noted. Continue thoracic radiotherapy as prescribed. Signed by: Sharad Gerber 09/29/2022 11:26:18 AM
[2022-09-30 08:35] LABS: Basophils % 0.8 %; Eosinophils # 0.1 10^3/uL (0.0-0.8); Eosinophils % 1.8 %; Hematocrit 35.6 % (37.0-47.0); Hemoglobin 11.5 g/dL (11.5-15.3); Lymphocytes # 0.3 10^3/uL (0.8-4.8); Lymphocytes % 5.2 %; Mean Corpuscular HGB Conc 32.3 g/dL (30.0-36.0); Mean Corpuscular Hemoglobin 29.6 pg (28.0-34.0); Mean Corpuscular Volume 91.8 fl (81-99); Mean Platelet Volume 10.1 fL (7.4-10.4); Monocytes # 0.4 10^3/uL (0.2-0.9); Monocytes % 7.4 %; Neutrophils # 4.23 10^3/uL (1.8-7.7); Neutrophils % 84.2 %; Nucleated Red Blood Cells % 0 %; Platelet Count 223 10^3/cmm (130-400); Red Blood Count 3.88 10^6/uL (4.1-5.3); Red Cell Distribution Width 13.6 % (12.1-15.1)
[2022-09-30 08:52] LABS: Alanine Aminotransferase 9 U/L (0-33); Albumin Level 3.9 g/dL (3.5-5.2); Alkaline Phosphatase 82 U/L (35-105); Anion Gap 14.1 (5-19); Aspartate Amino Transferase 12 U/L (0-32); Blood Urea Nitrogen 11 mg/dL (8-23); Calcium 8.8 mg/dL (8.5-10.5); Carbon Dioxide 24 mmol/L (22-29); Chloride 104 mmol/L (98-107); Globulin 2.6 g/dL (1.3-4.6); Glomerular Filtration Rate 98.8 mL/min (90-130); Glucose 81 mg/dL (65-115); Osmolality Calculated 284 mOsm/kg (285-295); Potassium 4.1 mmol/L (3.5-5.1); Sodium 138 mmol/L (136-145); Total Bilirubin 0.2 mg/dL (0.15-1.2); Total Protein 6.5 g/dL (6.6-8.7)
[2022-09-30] MEDS: sodium chloride 0.9% 250 ML 75 ML IV (10:05)
[2022-09-30] MEDS: ondansetron 2 mg/ML SDV 2 mL 8 MG IVP (10:05)
[2022-09-30 10:09] LABS: Add Urine Microscopic? NO; Charge for UA Resulting for Rev
[2022-09-30] MEDS: paclitaxel protein-bound 150 MG in empty flexible container 1 EACH 60 MG IV (10:41)
[2022-09-30 11:06] LABS: Bilirubin Urine 1+ (Negative); Blood Urine Neg (Negative); Glucose Urine UA Norm (Normal); Ketones Urine 1+ (Negative); Leukocyte Esterase Urine Negative (Negative); Nitrate Urine Negative (Negative); Protein Urine Neg (Negative); Specific Gravity, Urine 1.015 (1.005-1.030); Urine Appearance Clear (CLEAR); Urine Color Yellow (Yellow); Urobilinogen Urine 1 mg/dL (Negative); pH Urine 5 (5-7)
[2022-09-30] MEDS: CARBOplatin 230 MG in sodium chloride 0.9% 500 ML 523 MG IV (11:33)
[2022-09-30 13:05] VITALS: BP 116/56; PULSE 76; RESP 18; TEMP 37.2; O2SAT 96
== END 2022-10-03 12:05 | disposition home or self-care (01) ==
PROVIDERS: Nurse Practitioner Family; PCP Registered Nurse; Visit Provider Internal Medicine Hematology & Oncology
DX: Z51.0 Encounter for antineoplastic radiation therapy (principal); C34.12 Malignant neoplasm of upper lobe, left bronchus or lung; C77.8 Secondary and unspecified malignant neoplasm of lymph nodes of multiple regions; C78.5 Secondary malignant neoplasm of large intestine and rectum; F17.210 Nicotine dependence, cigarettes, uncomplicated; Z79.899 Other long term (current) drug therapy
CPT/HCPCS: 77014; 77336; 77386; 77427; 80053; 81003; 85025; 96361; 96367; 96375; 96413; 96415; 96417; 99024; 99213; 99214; J1100; J2405; J7040; J7050; J9045; J9264

== ENCOUNTER → 2022-10-07 08:51 | Outpatient (BNVA) | payer MEDICARE, SELFPAY | PROVIDERS: PCP Registered Nurse; Visit Provider Nurse Practitioner Family | DX: C34.12 Malignant neoplasm of upper lobe, left bronchus or lung (principal) | CPT/HCPCS: 99214 ==

== ENCOUNTER 2022-10-17 10:40 | Oncology outpatient (recurring) (ONCR) | payer MEDICARE, SELFPAY ==
--- NOTE | 2022-10-06 11:22 | ONCRAD TMN_ITS ---
Radiation Oncology Treatment Management Note Patient Name: Indigo Rosenberg Date of : 1950 Date of Service: 10/06/2022 Attending Physician: Sharad Gerber M.D. Indigo Rosenberg is a 72 year old white female recently diagnosed with a clinical stage IIIB (T3N3) non-small cell lung cancer. The patient evaluated by her primary care physician at [facility] in July for worsening dyspnea. A chest radiograph obtained on July 14, 2022 identified an opacity in the left lung apex. A thoracic CT scan confirmed a 1.8 cm x 1.4 cm x 2.1 cm left upper-lobe mass abutting the pleura, and adjacent satellite nodule measuring 4 mm, and a left hilar mass measuring 3.1 cm x 1.5 cm. A PET scan ordered on July 19, 2022 described a left upper-lobe mass (SUV 10), a satellite nodule postero-medial to this mass (SUV 4.3), left hilar adenopathy (SUV 14.5), AP window lymphadenopathy (SUV 5.1), a right lower paratracheal lymph node (SUV 3.6) and hypermetabolic activity within a 10 cm segment of the proximal sigmoid colon (SUV 7.9). A bronchoscopy with endobronchial ultrasound-guided biopsy performed on July 29, 2022. 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 PD-L1 results were unable to be quantitated because of an insufficient sample. An MRI of the head did not reveal metastatic disease. The patient has received 38 Gy of a prescribed 60 Pay[place] with an intensity modulated radiotherapy plan utilizing a step and shoot treatment technique. She has been prescribed carboplatin (AUC 2) and Abraxane (80 mg/m???) weekly during therapy. Upon review of systems, she denied any changes in her pulmonary status. On physical examination, the patient weighed 163 lbs. Her temperature was 97.6 ???F and the blood pressure was 120/48 mmHg. The pulse was 84 bpm and her respiratory rate was 18. Oxygen saturation while breathing room air was 99%. Continue thoracic radiotherapy as planned. Signed by: Sharad Gerber 10/06/2022 11:22:02 AM
[2022-10-07 08:25] VITALS: BP 106/59; PULSE 76; RESP 18; TEMP 37; O2SAT 97
[2022-10-07 08:27] LABS: Basophils % 0.5 %; Eosinophils # 0.1 10^3/uL (0.0-0.8); Eosinophils % 1.5 %; Hematocrit 34.7 % (37.0-47.0); Lymphocytes # 0.3 10^3/uL (0.8-4.8); Lymphocytes % 7.1 %; Mean Corpuscular HGB Conc 31.7 g/dL (30.0-36.0); Mean Corpuscular Hemoglobin 29.1 pg (28.0-34.0); Mean Corpuscular Volume 91.8 fl (81-99); Mean Platelet Volume 9.9 fL (7.4-10.4); Monocytes # 0.3 10^3/uL (0.2-0.9); Monocytes % 7.9 %; Neutrophils # 3.22 10^3/uL (1.8-7.7); Neutrophils % 82.2 %; Nucleated Red Blood Cells % 0 %; Platelet Count 179 10^3/cmm (130-400); Red Blood Count 3.78 10^6/uL (4.1-5.3); Red Cell Distribution Width 13.8 % (12.1-15.1); White Blood Count 3.9 10^3/uL (4.0-10.0)
[2022-10-07 08:51] LABS: Alanine Aminotransferase 9 U/L (0-33); Albumin Level 3.9 g/dL (3.5-5.2); Alkaline Phosphatase 99 U/L (35-105); Anion Gap 15.3 (5-19); Aspartate Amino Transferase 13 U/L (0-32); Blood Urea Nitrogen 16 mg/dL (8-23); Calcium 8.9 mg/dL (8.5-10.5); Carbon Dioxide 23 mmol/L (22-29); Chloride 105 mmol/L (98-107); Globulin 2.7 g/dL (1.3-4.6); Glomerular Filtration Rate 98.8 mL/min (90-130); Glucose 82 mg/dL (65-115); Osmolality Calculated 288 mOsm/kg (285-295); Potassium 4.3 mmol/L (3.5-5.1); Sodium 139 mmol/L (136-145); Total Bilirubin 0.2 mg/dL (0.15-1.2); Total Protein 6.6 g/dL (6.6-8.7)
[2022-10-07] MEDS: ondansetron 2 mg/ML SDV 2 mL 8 MG IVP (09:36)
[2022-10-07] MEDS: sodium chloride 0.9% 250 ML 999 ML IV (09:36)
[2022-10-07] MEDS: sodium chloride 0.9% 250 ML 75 ML IV (10:17)
[2022-10-07] MEDS: paclitaxel protein-bound 150 MG in empty flexible container 1 EACH 60 MG IV (10:44)
[2022-10-07] MEDS: CARBOplatin 260 MG in sodium chloride 0.9% 500 ML 526 MG IV (11:32)
[2022-10-07 13:16] VITALS: BP 115/66; PULSE 80; RESP 18; TEMP 37.2; O2SAT 95
[2022-10-08] MEDS: sodium chloride 0.9% 250 ML 999 ML IV (11:45)
[2022-10-08 12:06] VITALS: BP 152/72; PULSE 76; RESP 18; TEMP 36.3; O2SAT 98
--- NOTE | 2022-10-13 12:42 | ONCRAD TMN_ITS ---
Radiation Oncology Treatment Management Note Patient Name: Indigo Rosenberg Date of : 1950 Date of Service: 10/13/2022 Attending Physician: Sharad Gerber M.D. Indigo Rosenberg is a 72 year old white female recently diagnosed with a clinical stage IIIB (T3N3) non-small cell lung cancer. The patient evaluated by her primary care physician at [facility] in July for worsening dyspnea. A chest radiograph obtained on July 14, 2022 identified an opacity in the left lung apex. A thoracic CT scan confirmed a 1.8 cm x 1.4 cm x 2.1 cm left upper-lobe mass abutting the pleura, and adjacent satellite nodule measuring 4 mm, and a left hilar mass measuring 3.1 cm x 1.5 cm. A PET scan ordered on July 19, 2022 described a left upper-lobe mass (SUV 10), a satellite nodule postero-medial to this mass (SUV 4.3), left hilar adenopathy (SUV 14.5), AP window lymphadenopathy (SUV 5.1), a right lower paratracheal lymph node (SUV 3.6) and hypermetabolic activity within a 10 cm segment of the proximal sigmoid colon (SUV 7.9). A bronchoscopy with endobronchial ultrasound-guided biopsy performed on July 29, 2022. 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 PD-L1 results were unable to be quantitated because of an insufficient sample. An MRI of the head did not reveal metastatic disease. The patient has received 48 Gy of a prescribed 60 Pay[place] with an intensity modulated radiotherapy plan utilizing a step and shoot treatment technique. She has been prescribed carboplatin (AUC 2) and Abraxane (80 mg/m???) weekly during therapy. Upon review of systems, she described mild dysphagia. On physical examination, the patient weighed 165 lbs. Her temperature was 97.4 ???F and the blood pressure was 127/61 mmHg. The pulse was 74 bpm and her respiratory rate was 18. Oxygen saturation while breathing room air was 97%. Continue thoracic radiotherapy as prescribed. Signed by: Sharad Gerber 10/13/2022 12:41:44 PM
[2022-10-14 08:06] VITALS: BP 107/55; PULSE 96; RESP 16; TEMP 36.3; O2SAT 99
[2022-10-14 09:02] LABS: Basophils % 0.8 %; Eosinophils # 0.1 10^3/uL (0.0-0.8); Eosinophils % 1.3 %; Hemoglobin 10.7 g/dL (11.5-15.3); Lymphocytes # 0.2 10^3/uL (0.8-4.8); Lymphocytes % 5.3 %; Mean Corpuscular HGB Conc 31.5 g/dL (30.0-36.0); Mean Corpuscular Volume 92.1 fl (81-99); Mean Platelet Volume 10.4 fL (7.4-10.4); Monocytes # 0.3 10^3/uL (0.2-0.9); Monocytes % 7.7 %; Neutrophils # 3.19 10^3/uL (1.8-7.7); Neutrophils % 84.1 %; Nucleated Red Blood Cells % 0 %; Platelet Count 154 10^3/cmm (130-400); Red Blood Count 3.69 10^6/uL (4.1-5.3); Red Cell Distribution Width 14.2 % (12.1-15.1); White Blood Count 3.8 10^3/uL (4.0-10.0)
[2022-10-14 09:18] LABS: Alanine Aminotransferase 11 U/L (0-33); Albumin Level 3.9 g/dL (3.5-5.2); Alkaline Phosphatase 116 U/L (35-105); Anion Gap 13.9 (5-19); Aspartate Amino Transferase 17 U/L (0-32); Blood Urea Nitrogen 12 mg/dL (8-23); Calcium 8.6 mg/dL (8.5-10.5); Carbon Dioxide 25 mmol/L (22-29); Chloride 105 mmol/L (98-107); Globulin 2.8 g/dL (1.3-4.6); Glomerular Filtration Rate 82.7 mL/min (90-130); Glucose 83 mg/dL (65-115); Osmolality Calculated 289 mOsm/kg (285-295); Potassium 3.9 mmol/L (3.5-5.1); Sodium 140 mmol/L (136-145); Total Bilirubin 0.2 mg/dL (0.15-1.2); Total Protein 6.7 g/dL (6.6-8.7)
[2022-10-14] MEDS: sodium chloride 0.9% 250 ML 75 ML IV (10:22)
[2022-10-14] MEDS: ondansetron 2 mg/ML SDV 2 mL 8 MG IVP (10:36)
[2022-10-14] MEDS: paclitaxel protein-bound 150 MG in empty flexible container 1 EACH 300 MG IV (10:56)
[2022-10-14] MEDS: CARBOplatin 260 MG in sodium chloride 0.9% 500 ML 526 MG IV (11:20)
[2022-10-14 12:30] VITALS: BP 116/70; PULSE 76; RESP 16; TEMP 35.9; O2SAT 94
== END 2022-10-17 12:44 | disposition home or self-care (01) ==
PROVIDERS: Nurse Practitioner Family; PCP Registered Nurse; Visit Provider Internal Medicine Hematology & Oncology
DX: Z53.9 Procedure and treatment not carried out, unspecified reason
CPT/HCPCS: 77336; 77386; 80053; 85025; 96361; 96374; 96375; 96411; 96413; 96417; 99024; 99213; 99214; J1100; J1642; J2405; J7040; J7050; J9045; J9264

== ENCOUNTER 2022-10-27 06:45 | Outpatient (CLI) | payer MEDICARE, SELFPAY ==
--- NOTE | 2022-10-27 07:30 | CT_ITS ---
WS: [id number] CT chest w con* [id number] HISTORY: restaging CT, history of lung cancer. TECHNIQUE: Axial imaging performed through the thorax. Coronal and sagittal reformats are submitted. All CT scans at [facility] use at least one of these dose optimization techniques: automated exposure control; mA and/or kV adjustment per patient size (includes targeted exams where dose is mat ched to clinical indication); or iterative reconstruction. CONTRAST: Omnipaque 350; 100 mL IV. DLP: 184.26 mGy.cm COMPARISON: Prior chest CT 07/14/2022. PET/CT 07/19/2022 Lungs and central airway: Moderate chronic emphysematous changes. FDG positive LEFT apical subpleural mass is slightly decreased in size since the PET/CT now measuring 1.6 x 1.2 x 1.7 cm (TR x AP x CC). Prior PET/CT measurements of 2.0 x 1.4 x 2.6 cm. Mass abuts the pleura with adjacent pleural thicken ing. Small satellite lesion seen on the CT of 07/14/2022 is no longer present. Stable 0.6 cm nodule RIG HT apex with pleural tagging. Benign RIGHT lung granuloma. Pleura: Normal. No pleural effusion. Heart and pericardium: Normal size heart with no pericardial effusion. Mediastinum and manisha: Significant decrease in size of the soft tissue mass centered at the LEFT hilar with encasement of the hilar structures noted on 07/14/2022. There is very minimal residual soft tissu e thickening but no mass. Slight decrease in size of the inferior RIGHT paratracheal lymph node now m easuring 9 mm as compared to 13 mm. There are a few additional subcentimeter paratracheal and periaor tic lymph nodes. Vessels: Mild atherosclerosis aorta. No aneurysm. Normal size pulmonary artery. Chest wall and lower neck: LEFT Port-A-Cath. Upper abdomen: No adrenal mass. New low-attenuation mass measuring 1.2 cm and the LEFT lobe of the li nasima. This has not been present on prior studies and was not evident on the recent PET/CT. No bile bess t dilatation. Osseous structures: Increase in the thoracic kyphosis. Moderate spondylitic changes. No destructive b one lesions. CT/CT chest w con* [id number] IMPRESSION: 1. Moderate decrease in size PET/CT positive neoplasm LEFT apex. Neoplasm now measures 1.6 x 1.2 x 1.7 cm as compared to 2.0 x 1.4 x 2.6 cm. Satellite lesion is no longer evident. 2. Significant decrease in size of LEFT hilar lymphadenopathy. Essentially moris r complete resolution of the LEFT hilar adenopathy and decrease in size of the inferior RIGHT paratracheal lymph node which is now subcentimeter. 3. New low-attenuation mass in the LEFT lobe of the liver. Suspicious for meta static site. 4. Moderate chronic emphysema.
[2022-10-27] MEDS: iohexol 350 mg/mL 500 mL Btl (per mL) IV (07:33)
== END 2022-10-27 06:46 | disposition home or self-care (01) ==
LOC: RAD 06:48
PROVIDERS: PCP Registered Nurse; Visit Provider Nurse Practitioner Family
DX: C34.12 Malignant neoplasm of upper lobe, left bronchus or lung (principal); R93.2 Abnormal findings on diagnostic imaging of liver and biliary tract; J43.9 Emphysema, unspecified
CPT/HCPCS: 71260; Q9967

== ENCOUNTER 2022-10-29 13:30 | Oncology outpatient (recurring) (ONCR) | payer MEDICARE, SELFPAY ==
--- NOTE | 2022-10-20 11:20 | ONCRAD TMN_ITS ---
Radiation Oncology Treatment Management Note Patient Name: Indigo Rosenberg Date of : 1950 Date of Service: 10/20/2022 Attending Physician: Sharad Gerber M.D. Indigo Rosenberg is a 72 year old white female recently diagnosed with a clinical stage IIIB (T3N3) non-small cell lung cancer. The patient evaluated by her primary care physician at [facility] in July for worsening dyspnea. A chest radiograph obtained on July 14, 2022 identified an opacity in the left lung apex. A thoracic CT scan confirmed a 1.8 cm x 1.4 cm x 2.1 cm left upper-lobe mass abutting the pleura, and adjacent satellite nodule measuring 4 mm, and a left hilar mass measuring 3.1 cm x 1.5 cm. A PET scan ordered on July 19, 2022 described a left upper-lobe mass (SUV 10), a satellite nodule postero-medial to this mass (SUV 4.3), left hilar adenopathy (SUV 14.5), AP window lymphadenopathy (SUV 5.1), a right lower paratracheal lymph node (SUV 3.6) and hypermetabolic activity within a 10 cm segment of the proximal sigmoid colon (SUV 7.9). A bronchoscopy with endobronchial ultrasound-guided biopsy performed on July 29, 2022. 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 PD-L1 results were unable to be quantitated because of an insufficient sample. An MRI of the head did not reveal metastatic disease. The patient has received 58 Gy of a prescribed 60 Pay[place] with an intensity modulated radiotherapy plan utilizing a step and shoot treatment technique. She has been prescribed carboplatin (AUC 2) and Abraxane (80 mg/m???) weekly during therapy. Upon review of systems, she reported odynophagia. On physical examination, the patient weighed 164 lbs. Her temperature was 97.6 ???F and the blood pressure was 135/68 mmHg. The pulse was 74 bpm and her respiratory rate was 18. Oxygen saturation while breathing room air was 99%. Continue thoracic radiotherapy as planned. Signed by: Sharad Gerber 10/20/2022 11:19:37 AM
[2022-10-21 08:10] LABS: Basophils % 0.5 %; Eosinophils % 1.8 %; Hematocrit 30.9 % (37.0-47.0); Hemoglobin 9.8 g/dL (11.5-15.3); Lymphocytes # 0.2 10^3/uL (0.8-4.8); Lymphocytes % 8.3 %; Mean Corpuscular HGB Conc 31.7 g/dL (30.0-36.0); Mean Corpuscular Volume 91.4 fl (81-99); Mean Platelet Volume 10.6 fL (7.4-10.4); Monocytes # 0.1 10^3/uL (0.2-0.9); Monocytes % 6.5 %; Neutrophils # 1.79 10^3/uL (1.8-7.7); Neutrophils % 82.4 %; Nucleated Red Blood Cells % 0 %; Platelet Count 97 10^3/cmm (130-400); Red Blood Count 3.38 10^6/uL (4.1-5.3); Red Cell Distribution Width 14.5 % (12.1-15.1); White Blood Count 2.2 10^3/uL (4.0-10.0)
[2022-10-21 08:12] VITALS: BMI 27.6
[2022-10-21 08:34] LABS: Alanine Aminotransferase 13 U/L (0-33); Albumin Level 3.8 g/dL (3.5-5.2); Alkaline Phosphatase 108 U/L (35-105); Aspartate Amino Transferase 17 U/L (0-32); Blood Urea Nitrogen 10 mg/dL (8-23); Calcium 8.9 mg/dL (8.5-10.5); Carbon Dioxide 23 mmol/L (22-29); Chloride 102 mmol/L (98-107); Globulin 2.5 g/dL (1.3-4.6); Glomerular Filtration Rate 98.8 mL/min (90-130); Glucose 87 mg/dL (65-115); Osmolality Calculated 282 mOsm/kg (285-295); Sodium 137 mmol/L (136-145); Total Bilirubin 0.3 mg/dL (0.15-1.2); Total Protein 6.3 g/dL (6.6-8.7)
[2022-10-21] MEDS: sodium chloride 0.9% 1,000 ML 999 ML IV (11:46)
--- NOTE | 2022-10-21 13:23 | N.ONRD TS_ITS ---
Radiation OncologyTreatment Summary Patient Name: Indigo Rosenberg Date of : 1950 Date of Service: 10/21/2022 Attending Physician: Sharad Gerber M.D. Indigo Rosenberg has completed thoracic radiotherapy for the management of a clinical stage IIIB (T3N3) non-small cell lung cancer. The patient was evaluated by her primary care physician at [facility] in July for worsening dyspnea. A chest radiograph obtained on July 14, 2022 identified an opacity in the left lung apex. A thoracic CT scan confirmed a 1.8 cm x 1.4 cm x 2.1 cm left upper-lobe mass abutting the pleura, and adjacent satellite nodule measuring 4 mm, and a left hilar mass measuring 3.1 cm x 1.5 cm. A PET scan ordered on July 19, 2022 described a left upper-lobe mass (SUV 10), a satellite nodule postero-medial to this mass (SUV 4.3), left hilar adenopathy (SUV 14.5), AP window lymphadenopathy (SUV 5.1), a right lower paratracheal lymph node (SUV 3.6) and hypermetabolic activity within a 10 cm segment of the proximal sigmoid colon (SUV 7.9). A bronchoscopy with endobronchial ultrasound-guided biopsy performed on July 29, 2022. 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 PD-L1 results were unable to be quantitated because of an insufficient sample. An MRI of the head did not reveal metastatic disease. Daily radiotherapy was administered between the dates of August 08, 2021 through September 19, 2021. A prescribed dose of 60 Gy was delivered in 30 fractions encompassing 43 elapsed days. The left lower-lobe mass and mediastinal lymphadenopathy were treated utilizing an intensity modulated radiotherapy plan with a step and shoot treatment technique. The plan required eight gantry angles (0???, 30???, 50???, 70???, 150???, 170???, 190???, and 340) replicating an arc. The collimator rotations were 0??? to 140??? to minimize MLC excursion. The field sizes spanned 11.7 cm x 13.5 cm to 14.8 cm x 13.5 cm. The SSDs measured a minimum of 87.6 cm to a maximum of 92.1 cm. The ports delivered 251 MU, 232 MU, 196 MU, 161 MU, 167 MU, 124 MU, 185 MU, and 252 MU corresponding to the gantry angles described. All treatments were performed with the Localbase linear accelerator and an isocentric technique. The dose was calculated by Anisotropic Analytic Algorithm. A photon energy of 6 MV was prescribed with the plan normalized to deliver 100% of the prescription dose to 95% of the planning target volume. She was prescribed carboplatin (AUC 2) and Abraxane (80 mg/m???) weekly during therapy (September 16, 2022 to October 14, 2022) under the supervision of Huong Carmichael M.D. Signed by: Sharad Gerber 10/21/2022 1:21:59 PM
[2022-10-21 13:27] VITALS: BP 124/76; PULSE 84; RESP 16; TEMP 36.7; O2SAT 98
[2022-10-29 14:00] VITALS: BP 113/62; PULSE 75; RESP 16; TEMP 36.4; O2SAT 98
[2022-10-29 14:22] LABS: Basophils % 0.4 %; Eosinophils % 1.6 %; Hemoglobin 9.8 g/dL (11.5-15.3); Lymphocytes # 0.3 10^3/uL (0.8-4.8); Lymphocytes % 10.2 %; Mean Corpuscular HGB Conc 31.6 g/dL (30.0-36.0); Mean Corpuscular Hemoglobin 29.6 pg (28.0-34.0); Mean Corpuscular Volume 93.7 fl (81-99); Mean Platelet Volume 9.7 fL (7.4-10.4); Monocytes # 0.3 10^3/uL (0.2-0.9); Monocytes % 11.8 %; Neutrophils # 1.86 10^3/uL (1.8-7.7); Neutrophils % 75.6 %; Nucleated Red Blood Cells % 0 %; Platelet Count 112 10^3/cmm (130-400); Red Blood Count 3.31 10^6/uL (4.1-5.3); Red Cell Distribution Width 15.9 % (12.1-15.1); White Blood Count 2.5 10^3/uL (4.0-10.0)
[2022-10-29 14:44] LABS: Alanine Aminotransferase 9 U/L (0-33); Albumin Level 3.9 g/dL (3.5-5.2); Alkaline Phosphatase 124 U/L (35-105); Aspartate Amino Transferase 17 U/L (0-32); Blood Urea Nitrogen 8 mg/dL (8-23); Calcium 8.7 mg/dL (8.5-10.5); Carbon Dioxide 24 mmol/L (22-29); Chloride 103 mmol/L (98-107); Globulin 2.8 g/dL (1.3-4.6); Glomerular Filtration Rate 98.8 mL/min (90-130); Glucose 99 mg/dL (65-115); Osmolality Calculated 278 mOsm/kg (285-295); Sodium 135 mmol/L (136-145); Total Bilirubin 0.2 mg/dL (0.15-1.2); Total Protein 6.7 g/dL (6.6-8.7)
== END 2022-11-05 23:59 | disposition home or self-care (01) ==
PROVIDERS: Nurse Practitioner Family; PCP Registered Nurse; Visit Provider Internal Medicine Hematology & Oncology
DX: C34.12 Malignant neoplasm of upper lobe, left bronchus or lung (principal); C77.0 Secondary and unspecified malignant neoplasm of lymph nodes of head, face and neck; J43.9 Emphysema, unspecified; K76.89 Other specified diseases of liver; D70.9 Neutropenia, unspecified; J98.8 Other specified respiratory disorders; Z79.2 Long term (current) use of antibiotics; Z79.899 Other long term (current) drug therapy; F17.210 Nicotine dependence, cigarettes, uncomplicated
CPT/HCPCS: 71260; 77336; 77386; 80053; 85025; 99024; 99214; J7030; Q9967

== ENCOUNTER 2022-11-15 05:48 | Outpatient (CLI) | payer MEDICARE, SELFPAY ==
--- NOTE | 2022-11-15 11:00 | PETR_ITS ---
PROCEDURE INFORMATION: Exam: PET/CT Skull Base to Mid-thigh Exam date and time: 11/15/2022 12:29 PM Age: 72 years old Clinical indication: Abnormal findings; New liver lesion on CT from 10/27/22; Prior surgery; Surgery date: 6+ months; Surgery type: Port LABS AND CLINICAL REPORTS: Glucose: 108 mg/dl Treatment strategy for malignancy (PET staging): Restaging (PS) TECHNIQUE: Imaging protocol: Following at least four-hour fasting and following the injection of radiopharmaceutical, low dose CT images were obtained. Then, PET images were obtained. Attenuation corrected images were constructed using the CT scan. Fused images of PET and CT were reviewed. The standardized uptake values (SUV) reported below are maximum values within a region of interest, expressed in gm/ml. Exam includes orbital meatal line to mid-thigh. Radiopharmaceutical: 10.45 mCi F-18 FDG (Fluorodeoxyglucose), IV. Time of imaging post radiopharmaceutical administration: 1 hour Injection site: Left antecubital COMPARISON: CT chest 10/27/2022, PT PET [facility] INITIAL [id number] 07/19/2022 11:29 AM FINDINGS: Tubes, catheters and devices: A right subclavian central venous port catheter terminates in the SVC. Brain: Visualized brain has normal physiologic uptake. Pharynx: No abnormal uptake. Larynx: Symmetric appearing elevated uptake in the region of the vocal cords is noted, SUV max 16.0 (previously 8.6). Lungs, pleura and trachea: A triangular pleural based anterior left upper lobe nodule on series 3, image 39 measuring approximately 1.2 cm in diameter is noted, SUV max 3.8 (previously 10.0). This nodule is similar in size compared with 10/27/2022 and decreased in size compared with the prior PET-CT open (previously measuring 2.0 x 1.4 cm). Mild centrilobular emphysematous changes are noted. Non radiotracer avid mild biapical pleural scarring is present. There is a calcified granuloma in the right lower lobe. Heart: Normal physiologic uptake. Mediastinal space: No abnormal uptake. Liver: Focal uptake in the region of a previously noted low-density lesion within the left lobe of the liver is noted and appears increased in size compared with the CT of 10/27/2022, new since the prior PET-CT measuring 2.3 cm in diameter on series 3, image 81, SUV max 7.8. Gallbladder and bile ducts: No abnormal uptake. Pancreas: No abnormal uptake. Spleen: No abnormal uptake. Calcified granulomas in the spleen are present. Adrenal glands: No abnormal uptake. Kidneys and ureters: Normal physiologic uptake. Stomach and bowel: No abnormal uptake. There are scattered colonic diverticula. Vasculature: No abnormal uptake. There are diffuse atherosclerotic changes including within the coronary arteries. Lymph nodes: Lymph nodes in the mediastinum and left hilar region appear decreased in size since the prior PET-CT. A left hilar lymph node measures 1.9 x 1.[address] series 3, image 47, SUV max 7.6 (previously 14.5). A precarinal lymph node measures 8 mm on series 3, image 50, SUV max 4.0 (previously 3.6). An approximately 1 cm right hilar lymph node appears slightly decreased in size since the prior PET-CT on series 3, image 52, SUV max 3.6 (previously 3.7). Bones/joints: There are numerous new scattered radiotracer avid lesions in the osseous structures. Many of these lesions are not well delineated on the CT images while others demonstrate mild sclerosis. Examples: Right humeral shaft on PET series 4, image 9, SUV max 7.8; left C2-C3 facet joint, SUV max 7.8; anterior right 8th rib with surrounding soft tissue density measuring 3.6 x 2.3 cm on series 3, image 79, SUV max 13.5; L3 vertebral body, SUV max 13.2; L5 vertebral body, SUV max 11.1; superomedial left iliac bone, SUV max 15.9; lateral right sacrum, SUV max 12.7; pubic bone on the right, SUV max 12.7; left femoral neck, SUV max 10.7. Soft tissues: No abnormal uptake in the visualized head, neck, chest, abdomen, pelvis, and extremities. METRICS: Mediastinal blood pool: SUV max 2.2 [facility] [id number] IMPRESSION: 1. Decreased size of a pleural based anterior left upper lobe nodule since the prior PET-CT with decreased uptake (SUV max 3.8, previously 10.0) compatible with partial response to therapy. 2. Decreased size of mediastinal and bilateral hilar nodes since the prior PET-CT. A left hilar lymph node demonstrates persistent but decreased uptake, a precarinal lymph node demonstrates slightly increased uptake in a right hilar lymph node demonstrates similar uptake suggestive of a mixed response to therapy. 3. Increased size of a low-density lesion in the left lobe of the liver compared with 10/27/2022, new since the prior PET-CT with elevated uptake compatible with a new metastatic lesion. 4. Numerous new radiotracer avid osseous lesions since the prior PET-CT consistent with metastases. 5. Uptake in the region of the vocal cords has increased however it appears symmetric and is likely physiologic in nature, with no definitive evidence of corresponding lesions on the CT images. 6. Additional nonurgent findings as detailed above.
== END 2022-11-15 05:49 | disposition home or self-care (01) ==
LOC: RAD 11-17 05:49
PROVIDERS: PCP Registered Nurse; Visit Provider Nurse Practitioner
DX: R91.8 Other nonspecific abnormal finding of lung field (principal); K76.9 Liver disease, unspecified; C34.90 Malignant neoplasm of unspecified part of unspecified bronchus or lung; M89.9 Disorder of bone, unspecified
CPT/HCPCS: 78815; A9552

== ENCOUNTER 2022-11-21 07:20 | Oncology outpatient (recurring) (ONCR) | payer MEDICARE, SELFPAY ==
[2022-11-21 07:56] LABS: Basophils # 0.1 10^3/uL (0.0-0.1); Basophils % 0.9 %; Eosinophils # 0.1 10^3/uL (0.0-0.8); Eosinophils % 1.6 %; Hematocrit 34.4 % (37.0-47.0); Hemoglobin 11.2 g/dL (11.5-15.3); Lymphocytes # 0.4 10^3/uL (0.8-4.8); Mean Corpuscular HGB Conc 32.6 g/dL (30.0-36.0); Mean Corpuscular Hemoglobin 31.6 pg (28.0-34.0); Mean Corpuscular Volume 97.2 fl (81-99); Monocytes # 0.5 10^3/uL (0.2-0.9); Monocytes % 8.9 %; Neutrophils # 4.62 10^3/uL (1.8-7.7); Neutrophils % 80.7 %; Nucleated Red Blood Cells % 0 %; Platelet Count 213 10^3/cmm (130-400); Red Blood Count 3.54 10^6/uL (4.1-5.3); Red Cell Distribution Width 17.7 % (12.1-15.1); White Blood Count 5.7 10^3/uL (4.0-10.0)
[2022-11-21 08:09] VITALS: BP 121/63; PULSE 75; RESP 18; TEMP 37.2; O2SAT 98
[2022-11-21 08:17] LABS: Alanine Aminotransferase 9 U/L (0-33); Albumin Level 3.8 g/dL (3.5-5.2); Alkaline Phosphatase 95 U/L (35-105); Anion Gap 13.9 (5-19); Aspartate Amino Transferase 15 U/L (0-32); Blood Urea Nitrogen 10 mg/dL (8-23); Calcium 9.2 mg/dL (8.5-10.5); Carbon Dioxide 25 mmol/L (22-29); Chloride 104 mmol/L (98-107); Globulin 2.8 g/dL (1.3-4.6); Glomerular Filtration Rate 98.8 mL/min (90-130); Glucose 83 mg/dL (65-115); Osmolality Calculated 286 mOsm/kg (285-295); Potassium 3.9 mmol/L (3.5-5.1); Sodium 139 mmol/L (136-145); Total Bilirubin 0.2 mg/dL (0.15-1.2); Total Protein 6.6 g/dL (6.6-8.7)
== END 2022-12-05 23:59 | disposition home or self-care (01) ==
PROVIDERS: Nurse Practitioner Family; PCP Registered Nurse; Visit Provider Internal Medicine Hematology & Oncology
DX: C34.12 Malignant neoplasm of upper lobe, left bronchus or lung (principal); C77.8 Secondary and unspecified malignant neoplasm of lymph nodes of multiple regions; F17.210 Nicotine dependence, cigarettes, uncomplicated; Z79.899 Other long term (current) drug therapy; Z95.828 Presence of other vascular implants and grafts; C78.7 Secondary malignant neoplasm of liver and intrahepatic bile duct; C79.51 Secondary malignant neoplasm of bone; G89.3 Neoplasm related pain (acute) (chronic); Z79.891 Long term (current) use of opiate analgesic; R91.8 Other nonspecific abnormal finding of lung field; R59.0 Localized enlarged lymph nodes; Z51.0 Encounter for antineoplastic radiation therapy; Z51.11 Encounter for antineoplastic chemotherapy; C34.90 Malignant neoplasm of unspecified part of unspecified bronchus or lung
CPT/HCPCS: 36591; 80053; 85025; 99214

== ENCOUNTER 2022-12-10 14:49 | Observation (INO) | payer MEDICARE, SELFPAY ==
[2022-12-10] VITALS (12 sets, daily range): BP systolic 114–142; BP diastolic 59–84; PULSE 77–89; RESP 16–20; TEMP 36.6–36.8; O2SAT 94–100; BMI 27.3
--- NOTE | 2022-12-10 15:09 | ECG_ITS ---
[facility] Test Date: 2022-12-10 Pat Name: Indigo Rosenberg Department: Room: Gender: Female Media Developer: : 1950 Requested By: Sherita Merrill Order Number: [id number] Josh MD: Brodie Cristobal M.D. Measurements Intervals [place] Rate: 81 P: 56 NM: 146 QRS: 52 QRSD: 88 T: 31 QT: 389 QTc: 453 Interpretive Statements SINUS RHYTHM LOW QRS VOLTAGE IN PRECORDIAL LEADS [QRS DEFLECTION < 1.0 mV IN CHEST LEADS] NONSPECIFIC T-WAVE ABNORMALITY Compared to ECG 09/19/2021 17:36:58 Low QRS voltage now present Ventricular premature complex(es) no longer present T-wave abnormality still present Electronically Signed On 12-11-2022 12:18:29 CDT by Brodie Cristobal M.D. [id number]
--- NOTE | 2022-12-10 15:10 | CTR_ITS ---
PROCEDURE INFORMATION: Exam: CTA Chest With Contrast Exam date and time: 12/10/2022 3:57 PM Age: 72 years old Clinical indication: Abdominal pain; Generalized; On breathing TECHNIQUE: Imaging protocol: Computed tomographic angiography of the chest with contrast. Exam focused on the arteries. 3D rendering (Not supervised by radiologist): MIP and/or 3D reconstructed images were created by the technologist. Radiation optimization: All CT scans at this facility use at least one of these dose optimization techniques: automated exposure control; mA and/or kV adjustment per patient size (includes targeted exams where dose is matched to clinical indication); or iterative reconstruction. Contrast material: OMNI 350; Contrast volume: 100 ml; Contrast route: INTRAVENOUS (IV); REPORTING DATA: Count of CT and Cardiac NM exams in prior 12 months: This patient has received 5 known CTs and 0 known cardiac nuclear medicine studies in the 12 months prior to the current study. COMPAR[id number] 11/15/2022 12:29 PM RADIATION DOSE METRICS: Total DLP (mGy-cm): 911 FINDINGS: Tubes, catheters and devices: A central venous catheter or Port-A-Cath is seen in the right with tip of the catheter in the superior vena cava. Pulmonary arteries: Normal. No pulmonary emboli. Aorta: Unremarkable. No aortic aneurysm. No aortic dissection. Lungs: Lung windows demonstrate mild emphysematous change. Left apical subpleural mass is seen and appears mildly decreased in size from prior exam October 27, 2022. Tiny subpleural nodule right lung apical region is unchanged with prior exam. Mild apical scarring. Very small right partially calcified granuloma is seen mid right lung. No interval new focal infiltrate or consolidation. Mild basilar atelectasis. Peribronchial thickening noted centrally. Pleural spaces: No pleural effusion or pneumothorax. Heart: Cardiac size is within normal limits. No pericardial effusion. Coronary artery calcification. Lymph nodes: Mild lymphadenopathy without significant change with prior exam. Bones/joints: Degenerative change thoracic spine. This is associated with some sclerotic change. Soft tissues: Unremarkable. COMMENTS: In the absence of a history or active diagnosis of lung cancer, it is recommended that this patient with emphysema be evaluated for enrollment in a low dose CT lung cancer screening program. PROCEDURE INFORMATION: Exam: CT Abdomen And Pelvis With Contrast Exam date and time: 12/10/2022 3:57 PM Age: 72 years old Clinical indication: Abdominal pain; Generalized; On breathing TECHNIQUE: Imaging protocol: Computed tomography of the abdomen and pelvis with contrast. Radiation optimization: All CT scans at this facility use at least one of these dose optimization techniques: automated exposure control; mA and/or kV adjustment per patient size (includes targeted exams where dose is matched to clinical indication); or iterative reconstruction. Contrast material: OMNI 350; Contrast volume: 100 ml; Contrast route: INTRAVENOUS (IV); REPORTING DATA: Count of CT and Cardiac NM exams in prior 12 months: This patient has received 5 known CTs and 0 known cardiac nuclear medicine studies in the 12 months prior to the current study. COMPARISON: PT PET [facility] SUBSEQ [id number] 11/15/2022 12:29 PM RADIATION DOSE METRICS: Total DLP (mGy-cm): 911 FINDINGS: Liver: Low-density foci are seen scattered within the liver, suggestive of metastatic foci. This includes a larger low-density lesion 3.5 cm within the left lobe. Gallbladder and bile ducts: Tiny hyperdense focus within the dependent gallbladder suggest gallstone or cholelithiasis. No biliary ductal dilatation. Pancreas: Normal. No ductal dilation. Spleen: Approximally 1.5 cm low-density lesion is seen superomedial aspect of the spleen. This could also indicate a metastatic focus or other splenic lesion. Adrenal glands: Normal. No mass. Kidneys and ureters: Normal. No hydronephrosis. Stomach and bowel: Unremarkable. No obstruction. No mucosal thickening. Colonic diverticulosis, and particularly left and sigmoid colon, without CT findings of diverticulitis. Appendix: No evidence of appendicitis. Intraperitoneal space: Unremarkable. No free air. No significant fluid collection. Vasculature: Atherosclerotic vascular disease noted without aneurysmal dilatation of the abdominal aorta. Lymph nodes: No significant enlarged periaortic or retroperitoneal lymph nodes. No enlarged pelvic nodes. Urinary bladder: Unremarkable as visualized. Reproductive: Unremarkable as visualized. Bones/joints: A soft tissue mass in association with an anterolateral lower right rib is seen, lateral to the liver. This is suggestive of metastatic disease with rib involvement. Mild degenerative bony changes. Some scattered areas of sclerosis and particularly within the spine. Soft tissues: Unremarkable. CT/CT angio chest w abd pel wo/w IMPRESSION: 1. No CT findings of pulmonary embolus. 2. Mild emphysematous change with mild basilar atelectasis and peribronchial thickening centrally. 3. Other findings in this patient with known malignancy in the chest as noted above. IMPRESSION: 1. Multiple low-density foci within the liver including a larger low-density lesion of 3.5 cm within the left lobe suggestive of metastatic disease. 2. 1.5 cm low-density lesion superomedial aspect of the spleen could indicate metastatic focus or other splenic lesion. 3. Suggestion of tiny gallstone or cholelithiasis. 4. Colonic diverticulosis without CT findings of diverticulitis. 5. Soft tissue mass in association with an anterolateral lower right rib suggestive of metastatic disease involving this rib. This is at the level lateral to the liver.
[2022-12-10] MEDS: ondansetron 2 mg/ML SDV 2 mL 4 MG IVP (15:14)
[2022-12-10] MEDS: morphine 4 mg/mL SDV 1 mL IVP (15:14)
[2022-12-10] MEDS: sodium chloride 0.9% 1,000 ML 999 ML IV (15:15)
--- NOTE | 2022-12-10 15:39 | ED_ITS ---
HPI - Chest Pain General: Chief Complaint: Chest Pain Stated Complaint: chest pain Time Seen by Provider: 12/10/22 14:55 History of Present Illness: This patient is a 72 year old presenting with pain in her lumbar region, right lower ribs and sometimes all over her chest and abdomen. She reports a history of lung cancer treated with chemotherapy this spring. She recently had a PET scan showing metastatic lesions in the lumbar spine and right lower anterior ribs, as well as in the liver. She has been having this pain for weeks and weeks and came in today because she couldn't take it any more. She has pain medication prescribed but it is not helping. She also notes a rash on her legs that started a few days ago and it itchy. She denies shortness of breath. She has had nausea. No fever. No cough. She also still has her gallbladder and has been told in the past that she might need to have it out due to a polyp, but then the doctor left and she never heard anything else about it . She takes morphine ER and IR and had her last dose of ER around 8 am and the last dose of IR at about 1 pm. She says that it didn't help at all. She denies leg weakness or numbness, no bladder or bowel incontinence or retention. She has had some constipation but manages it with laxatives. PFSH ED PFSH: Medical History Essential hypertension Fibromyalgia Hyperlipidemia Hypertension Insomnia Non-small cell lung cancer Occult blood positive stool Port-A-Cath in place Right chest wall - Dr. Muniz Vitamin B 12 deficiency Vitamin D deficiency Surgical History History of breast lump/mass excision History of colonoscopy with polypectomy (~06/2019) Hx of appendectomy Family History Denies family history of Anesthesia complication Bleeding disorder Social History Smoking and tobacco status: current every day smoker cigarettes Packs smoked p er day: 1 Years cigarettes smoked: 30 Second hand smoke exposure: Yes Smoking risk assessment/counseling performed?: No Alcohol intake: never Substance/Drug Use: never Adopted: No Caregiver/support person: Yes Lives independently: Yes Household members: spouse Housing: House Marital status: Highest education level completed: High School Graduate service: No Current occupational status: retired Current occupational exposures/hazards: No Pets and animals: Yes Sexually active: Yes Do you think of yourself as: Straight/Heterosexual Current gender identity: Female Laila/Church: Ep[employer]op[employer] Special laila needs: No Agree to transfusion: No Financial difficulty paying for basics: Decline to Answer Physical Exam Const: COMMON NORMALS: patient oriented x3, no limitations and alert GENERAL APPEARANCE: cooperative, comfortable, in distress and anxious HENMT: HEAD & SCALP: normal to inspection FACE & SINUS: normal facial exam Eye: GENERAL EYE: appearance normal, both eyes and all related structures Neck/C-Spine: COMMON NORMALS: supple, no meningeal signs and no JVD Chest: COMMONS NORMALS: normal inspection of the chest CHEST: Yes tenderness (right anterior lower ribs) Resp: COMMON NORMALS: normal respiratory effort, No use of accessory muscles and clear to auscultation bilaterally AUSCULTATION: clear to auscultation bilaterally Cardio: COMMON NORMALS: no JVD, regular rate, regular rhythm and No murmurs present (Cardio) RATE: regular rate RHYTHM: regular rhythm GI: COMMON NORMALS: Normal to inspection, nondistended, normoactive bowel sounds present, Soft to palpation and non-tender INSPECTION: Yes normal to inspection AUSCULTATION: Yes normoactive bowel sounds PALPATION: Yes Soft to palpation Back/Pelvis: OTHER: diffuse pain in the entire lumbar area Extremity: COMMON NORMALS: normal to inspection Neuro: COMMON NORMALS: patient oriented x3, moves all extremities, no focal motor deficits and no sensory deficits noted SENSORIUM/ORIENTATION: Yes alert MENINGEAL SIGNS: Yes no meningeal signs Psych: COMMON NORMALS: mental status grossly normal, cooperative and normal affect Skin: COMMON NORMALS: turgor normal GENERAL SKIN EXAM: turgor normal and other (red, maculopapular rash on the lower extremities) Course Vital Signs: Vital signs: Vital Signs Temperature 98.2 F 12/10/22 14:51 Pulse Rate 85 12/10/22 20:57 Respiratory Rate 18 12/10/22 15:14 Blood Pressure 138/65 12/10/22 20:57 Pulse Oximetry 99 12/10/22 20:57 Oxygen Delivery Me thod Nasal Cannula 12/10/22 20:57 Oxygen Flow Rate 2 12/10/22 20:57 MDM - Chest Pain Medical Decision Making Known metastatic disease to the ribs and spine as well as the liver. Pain is consistent with this, but her pain medication is inadequate to management the dale. Also concern for gallbladder disease as her RUQ symptoms are intense. PE is certainly a consideration as a cause of chest pain as well. Labs, CT chest for PE and CT abd/pelvis pending. She was also medicated for pain in the ED with IV morphine. CT with a large mass in the soft tissue at the level of the liver - as well as multiple lesions in the liver. I consulted Dr. Carmichael who recommended admission for pain control and biopsy. Once the biopsy is done she can receive radiation for pain control. Patient is in agreement with this plan. Dr. Camacho will admit. Lab Data 12/10/22 15:43 12/10/22 15:43 Radiology Impressions Chest/Abdomen/Pelvis CT 12/10/22 15:10 IMPRESSION: 1. No CT findings of pulmonary embolus. 2. Mild emphysematous change with mild basilar atelectasis and peribronchial thickening centrally. 3. Other findings in this patient with known malignancy in the chest as noted above. IMPRESSION: 1. Multiple low-density foci within the liver including a larger low-density lesion of 3.5 cm within the left lobe suggestive of metastatic disease. 2. 1.5 cm low-density lesion superomedial aspect of the spleen could indicate metastatic focus or other splenic lesion. 3. Suggestion of tiny gallstone or cholelithiasis. 4. Colonic diverticulosis without CT findings of diverticulitis. 5. Soft tissue mass in association with an anterolateral lower right rib suggestive of metastatic disease involving this rib. This is at the level lateral to the liver. Laboratory Results WBC 9.0 10^3/uL (4.0-10.0) 12/10/22 15:43 RBC 3.58 10^6/uL (4.1-5.3) L 12/10/22 15:43 Hgb 11.3 g/dL (11.5-15.3) L 12/10/22 15:43 Hct 35.5 % (37.0-47.0) L 12/10/22 15:43 MCV 99.2 fl (81-99) H 12/10/22 15:43 MCH 31.6 pg (28.0-34.0) 12/10/22 15:43 MCHC 31.8 g/dL (30.0-36.0) 12/10/22 15:43 RDW 15.8 % (12.1-15.1) H 12/10/22 15:43 Plt Count 162 10^3/cmm (130-400) 12/10/22 15:43 MPV 10.9 fL (7.4-10.4) H 12/10/22 15:43 Neut % (Auto) 82.7 % 12/10/22 15:43 Lymph % (Auto) 3.3 % 12/10/22 15:43 [place] % (Auto) 9.7 % 12/10/22 15:43 Eos % (Auto) 2.5 % 12/10/22 15:43 Baso % (Auto) 0.6 % 12/10/22 15:43 Neut # (Auto) 7.46 10^3/uL (1.8-7.7) 12/10/22 15:43 Lymph # (Auto) 0.3 10^3/uL (0.8-4.8) L 12/10/22 15:43 [place] # (Auto) 0.9 10^3/uL (0.2-0.9) 12/10/22 15:43 Eos # (Auto) 0.2 10^3/uL (0.0-0.8) 12/10/22 15:43 Baso # (Auto) 0.1 10^3/uL (0.0-0.1) 12/10/22 15:43 Nucleated RBC % (auto) 0 % 12/10/22 15:43 Nucleated RBCs # 0.0 /100WBC 12/10/22 15:43 Sodium 137 mmol/L (136-145) 12/10/22 15:43 Potassium 4.2 mmol/L (3.5-5.1) 12/10/22 15:43 Chloride 101 mmol/L (98-107) 12/10/22 15:43 Carbon Dioxide 24 mmol/L (22-29) 12/10/22 15:43 Anion Gap 16.2 (5-19) 12/10/22 15:43 BUN 12 mg/dL (8-23) 12/10/22 15:43 Creatinine 0.6 mg/dL (0.5-0.9) 12/10/22 15:43 GFR Calculation 98.8 mL/min (90-130) 12/10/22 15:43 Glucose 95 mg/dL (65-115) 12/10/22 15:43 Calculated Osmolality 284 mOsm/kg (285-295) L 12/10/22 15:43 Calcium 9.2 mg/dL (8.5-10.5) 12/10/22 15:43 Total Bilirubin 0.2 mg/dL (0.15-1.2) 12/10/22 15:43 AST 25 U/L (0-32) 12/10/22 15:43 ALT 11 U/L (0-33) 12/10/22 15:43 Alkaline Phosphatase 97 U/L (35-105) 12/10/22 15:43 Total Protein 6.5 g/dL (6.6-8.7) L 12/10/22 15:43 Albumin 3.7 g/dL (3.5-5.2) 12/10/22 15:43 Globulin 2.8 g/dL (1.3-4.6) 12/10/22 15:43 Discharge Plan Discharge Patient Disposition: Admitted As Inpatient Admit Provider: Jonathan Cespedes Clinical Impression: Intractable pain, Metastatic cancer Condition: Stable Coding Level of Care Code ED Overnight Stocker for Jason Cespedes
[2022-12-10 15:53] LABS: Basophils # 0.1 10^3/uL (0.0-0.1); Basophils % 0.6 %; Eosinophils # 0.2 10^3/uL (0.0-0.8); Eosinophils % 2.5 %; Hematocrit 35.5 % (37.0-47.0); Hemoglobin 11.3 g/dL (11.5-15.3); Lymphocytes # 0.3 10^3/uL (0.8-4.8); Lymphocytes % 3.3 %; Mean Corpuscular HGB Conc 31.8 g/dL (30.0-36.0); Mean Corpuscular Hemoglobin 31.6 pg (28.0-34.0); Mean Corpuscular Volume 99.2 fl (81-99); Mean Platelet Volume 10.9 fL (7.4-10.4); Monocytes # 0.9 10^3/uL (0.2-0.9); Monocytes % 9.7 %; Neutrophils # 7.46 10^3/uL (1.8-7.7); Neutrophils % 82.7 %; Nucleated Red Blood Cells % 0 %; Platelet Count 162 10^3/cmm (130-400); Red Blood Count 3.58 10^6/uL (4.1-5.3); Red Cell Distribution Width 15.8 % (12.1-15.1)
[2022-12-10] MEDS: iohexol 350 mg/mL 500 mL Btl (per mL) IV (16:05)
[2022-12-10 16:09] LABS: Alanine Aminotransferase 11 U/L (0-33); Albumin Level 3.7 g/dL (3.5-5.2); Alkaline Phosphatase 97 U/L (35-105); Aspartate Amino Transferase 25 U/L (0-32); Blood Urea Nitrogen 12 mg/dL (8-23); Calcium 9.2 mg/dL (8.5-10.5); Carbon Dioxide 24 mmol/L (22-29); Chloride 101 mmol/L (98-107); Globulin 2.8 g/dL (1.3-4.6); Glomerular Filtration Rate 98.8 mL/min (90-130); Glucose 95 mg/dL (65-115); Osmolality Calculated 284 mOsm/kg (285-295); Sodium 137 mmol/L (136-145); Total Bilirubin 0.2 mg/dL (0.15-1.2); Total Protein 6.5 g/dL (6.6-8.7)
[2022-12-10 16:15] LABS: Anion Gap 16.2 (5-19); Potassium 4.2 mmol/L (3.5-5.1)
--- NOTE | 2022-12-10 16:42 | PC.PHAR ---
PT STATES SHE TAKES CARE OF HER OWN MEDICATIONS-PT STATES SHE TAKES BUSPAR 5MG HS EXT SHOWS LAST FILLED 09/17/22 30D/S 10MG BID PRN-PT STATES SHE STILL TAKES VITAMIN D2 96287 UNITS Q7D EXT SHOWS LAST FILLED 04/19/23-PT STATES SHE HAS A PRN LEVAQUIN EXT SHOWS LAST FILLED 10/29/22 7D/S 750MG DAILY RX BOTTLE HAD 2 TABS LEFT-PT STATES SHE TAKES CARAFATE 1G BID EXT SHOWS LAST FILLED 10/20/22 30D/S 1G Q6H-PT STATES HER PERCOCET IS ON HOLD RX BOTTLE DATED 10/06/22 EXT SHOWS LAST FILLED 11/21/22 30D/S-PT STATES SHE IS NOT RECEIVING ANY CHEMO OR RADIATION AT THIS TIME-PT STATES SHE IS HAVING A BIOPSY ON Thursday12/12/22- PT STATES THEN SHE HAS AN APPOINTMENT ON Thursday12/15/22 WITH ABOUT GETTING RADIATION-NOTES ARE MADE IN THE PHARMACY COMMENTS
--- NOTE | 2022-12-10 19:38 | PM.HP ---
Providers/Chief Complaint Primary Care Provider: TRACY Villa Chief Complaint: chest pain History of Present Illness Pleasant 72-year-old lady with metastatic small cell lung carcinoma, awaiting arrangements for biopsy of right-sided rib cage lesions, pending initiation of radiation treatment, presented to ER due to uncontrollable pain in right rib cage as well as her lower back. As per her discussion with oncology it is anticipated that with radiation therapy pain should improve, however, so far it has been getting worse and she has not yet had her biopsy which is scheduled for this coming Thursday. She takes morphine at home, 30 mg 12 hour formulation, as well as 50 mg every 6 hours MSIR, to which she has been switched from oxycodone which she used to take before, however, states that it has not been even touching the pain. Placement to observation for optimization of pain control requested from ER. Review of Systems Const: Denies: fever(s), chills, body aches or malaise ENMT: Denies: throat pain Card: Denies: chest pain, edema, pre-syncope or dyspnea on exertion Resp: Denies: dyspnea, productive cough, change in phlegm color or hemoptysis GI: Reports: constipation; Denies: abdominal pain, nausea, vomiting, diarrhea, hematochezia or melena : Denies: urinary frequency or hematuria Musc: Reports: back pain (lower back) and other (R ribcage pain); Denies: joint swelling or joint redness Skin/Breast: Denies: rash or new lesions Neuro: Denies: headache(s), numbness in extremities, weakness in extremities, dizziness, confusion or seizure-like activity Medications/Allergies Home Medications Medication Instructions Recorded Confirmed Last Taken Type nebulizer with supplies #1 ea 07/23/22 12/10/22 07/25/22 Rx pantoprazole 40 mg tablet,delayed 40 mg PO QAM 07/25/22 12/10/22 08/20/22 History release sucralfate 1 gram tablet (Carafate) 1 g PO BID 07/25/22 12/10/22 08/20/22 History fluticasone fur. 100 mcg-umeclid 1 inh inhalation DAILY PRN 08/07/22 12/10/22 08/21/22 06:00 History 62.5 mcg-vilant 25 mcg Shortness Of Breath Or Wheezing inhalat.powder (Trelegy Ellipta) ipratropium 0.5 mg-albuterol 3 mg 3 ml inhalation Q6H PRN 08/07/22 12/10/22 08/21/22 07:00 History (2.5 mg base)/3 mL nebulization Respiratory Distress soln lorazepam 1 mg tablet 0.5 - 1 mg PO Q6H PRN Severe 09/11/22 12/10/22 Unknown Rx Nausea #30 tabs morphine 30 mg tablet,extended 30 mg PO Q12H 30 days #60 tabs 11/21/22 12/10/22 12/10/22 08:00 Rx release morphine 15 mg immediate release 15 mg PO .Q4-6H PRN pain 30 days 12/04/22 12/10/22 12/10/22 13:00 Rx tablet #60 tabs amlodipine 10 mg tablet 10 mg PO QAM 12/10/22 12/10/22 12/09/22 History buspirone 10 mg tablet 5 mg PO BEDTIME 12/10/22 12/10/22 12/09/22 History ergocalciferol (vitamin D2) 1,250 50,000 unit PO Q7D 12/10/22 12/10/22 Unknown History mcg (50,000 unit) capsule levofloxacin 750 mg tablet 750 mg PO DAILY PRN infection 12/10/22 12/10/22 Unknown History lisinopril 20 mg tablet 20 mg PO QAM 12/10/22 12/10/22 12/09/22 History metoclopramide HCl 10 mg tablet 10 mg PO DAILY PRN Nausea 12/10/22 12/10/22 Unknown History (Reglan) oxycodone-acetaminophen 5 mg-325 1 - 2 tab PO .EVERY 4-6 HOURS PRN 12/10/22 12/10/22 Unknown History mg tablet Pain prochlorperazine maleate 10 mg 10 mg PO Q4H PRN MILD NAUSEA 12/10/22 12/10/22 Unknown History tablet (Compazine) sennosides 25 mg tablet (Laxative 50 mg PO QPM 12/10/22 12/10/22 Unknown History Pills) zolpidem 10 mg tablet 5 mg PO BEDTIME 12/10/22 12/10/22 Unknown History Allergies Allergy/AdvReac Type Severity Reaction Status Date / Time No Known Allergies Allergy Verified 12/10/22 16:25 PFSH Acute PFSH: Medical History Essential hypertension Fibromyalgia Hyperlipidemia Hypertension Insomnia Non-small cell lung cancer Occult blood positive stool Port-A-Cath in place Right chest wall - Dr. Muniz Vitamin B 12 deficiency Vitamin D deficiency Surgical History History of breast lump/mass excision History of colonoscopy with polypectomy (~06/2019) Hx of appendectomy Family History Denies family history of Anesthesia complication Bleeding disorder Social History Smoking and tobacco status: current every day smoker cigarettes Packs smoked per day: 1 Years cigarettes smoked: 30 Second hand smoke exposure: Yes Smoking risk assessment/counseling performed?: No Alcohol intake: never Substance/Drug Use: never Adopted: No Caregiver/support person: Yes Lives independently: Yes Household members: spouse Housing: House Marital status: Highest education level completed: High School Graduate service: No Current occupational status: retired Current occupational exposures/hazards: No Pets and animals: Yes Sexually active: Yes Do you think of yourself as: Straight/Heterosexual Current gender identity: Female Laila/Scientologist: Denominational Special laila needs: No Agree to transfusion: No Financial difficulty paying for basics: Decline to Answer Vitals/I&O/Wt Last Vital Signs Temp 98.2 F 12/10/22 14:51 Pulse 85 12/10/22 18:30 Resp 18 12/10/22 15:14 BP 142/76 12/10/22 18:30 Pulse Ox 100 12/10/22 18:30 O2 Del Method Nasal Cannula 12/10/22 18:30 O2 Flow Rate 2 12/10/22 18:30 Weight last 48 hrs Weight 74.389 kg Physical Exam Narrative: Accompanied by family. Const: COMMON NORMALS: patient oriented x3 and alert GENERAL APPEARANCE: cooperative ORIENTATION/CONSCIOUSNESS: Yes awake HENMT: COMMON NORMALS: oropharynx normal Neck/C-Spine: COMMON NORMALS: no JVD Chest: OTHER: Tender R side lower chest wall. Resp: COMMON NORMALS: normal respiratory effort and clear to auscultation bilaterally AUSCULTATION: rhonchi (Few) Cardio: COMMON NORMALS: no JVD, regular rhythm, S1 normal heart sound present, S2 normal heart sound present and No murmurs present (Cardio) RHYTHM: regular rhythm HEART SOUNDS: S1 normal heart sound present and S2 normal heart sound present GI: COMMON NORMALS: Normal to inspection, nondistended, normoactive bowel sounds present, Soft to palpation and non-tender PALPATION: Yes Soft to palpation Extremity: COMMON NORMALS: no joint enlargement and no pedal edema Neuro: COMMON NORMALS: patient oriented x3 and moves all extremities SENSORIUM/ORIENTATION: Yes alert Skin: GENERAL SKIN EXAM: ecchymosis Data 12/10/22 15:43 12/10/22 15:43 A&P Assessment and plan (1) Intractable pain: As she has not been responding to 30 mg 12-hour formulation of morphine twice daily in addition to every 6 hours 15 mg MS IR, has not been taking her oxycodone but was on oxycodone previously, likely with some tolerance. Discussed with her starting IV opioid, will add IV Dilaudid as well as fentanyl patch. We will also add locally lidocaine patch on rib cage. In addition discussed Tylenol and conservative measures as well. Discussed that we may not be able to relieve her pain entirely especially if it starts affecting her mental status as she would like to remain functional. Although we will try to at least take the edge off. Discussed consideration of adverse effects. We will start on 50 mg fentanyl patch. Dilaudid 1 mg every 4 hours as needed for breakthrough severe pain. Lidocaine patch locally. Tylenol as needed. Monitor for respiratory depression, AMS. Continuous pulse oximetry. Naloxone as needed. Otherwise without leukocytosis and CBC otherwise unremarkable, afebrile. Liver parameters WNL. Noted CT scan chest abdomen pelvis with mild emphysema mild basilar atelectasis and parabronchial thickening centrally. We will add I-S. Known malignancy. In the abdomen multiple low-density foci in the liver including larger low-density lesion of 2.5 cm within the left lobe suggestive of metastatic disease. 1.5 cm low-density lesion superimposed aspect of the spleen could indicate a metastatic focus or other splenic lesion. Tiny gallstone cholelithiasis. Colonic diverticulosis. Soft tissue mass anterior lateral lower right rib suggestive of metastatic disease involving this rib. Follow-up CMP. (2) Constipation: Discussed with her also risk of worsening constipation. She already has been having some difficulties with constipation. Continue senna. Add MiraLAX. Dulcolax posterior as needed. (3) Goals of care, counseling/discussion: Specifically with regards to CODE STATUS, she prefers not to receive CPR in case of cardiopulmonary arrest in such an event to be kept comfortable and allow nature to take its course. Plan Metastatic squamous cell lung cancer: Pending biopsy of right lower anterolateral chest wall lesion, initiation of radiation therapy. Smoking addiction: Nicotine replacement as needed. Nicotine patches, lozenges available upon request. HTN: Monitor blood pressure. Continue pleural. Insomnia: Continue Ambien Port-A-Cath in place Other medical problems noted. With regards to DVT prophylaxis, discussed elevated risk of DVT in the presence of cancer, but also due to recent decrease in mobility. Discussed consideration of prophylactic dose heparin, however, she is quite concerned as was instructed not to take any anticoagulants in the preceding 5 days before the biopsy so has not increased risk of bleeding. At this time SCD only, prefers not to have any additional agents so as not to complicate the biopsy on Thursday. ER documentation reviewed. Discussed with ER physician. Attestations Medical Necessity Statement*: Place in observation for assessment management of intractable severe pain related to metastatic disease unresponsive to outpatient opioid treatment. Diagnoses Intractable pain R52 Constipation K59.00 Goals of care, counseling/discussion Z71.89
[2022-12-10] MEDS: lidocaine 5% Patch 1 PATCH TOPICAL (21:51)
[2022-12-10] MEDS: fentaNYL 50 mcg Patch 1 PATCH TRANSDERMA (21:53)
[2022-12-10] MEDS: zolpidem 5 mg Tablet PO (21:53)
[2022-12-10] MEDS: BuSPIRONE 10 mg Tablet 5 MG PO (21:53)
--- NOTE | 2022-12-10 22:19 | PC.NURSE ---
Pt states the rashes documented have been present for 3-4 days and she has been itching them. Patient reports no new meds or new foods.
--- NOTE | 2022-12-10 22:49 | PC.NURSE ---
pt was educated of the purpose of SCDs and their use in prevention of blood clots. Pt verblizied understanding and requested to leave them off.
[2022-12-11] VITALS (15 sets, daily range): BP systolic 96–139; BP diastolic 57–68; PULSE 68–99; RESP 15–20; TEMP 36.4–37; O2SAT 93–99
[2022-12-11 02:08] LABS: Add Urine Culture? No; Add Urine Microscopic? YES; Bacteria Urine 1+ /hpf; Bilirubin Urine Neg (Negative); Blood Urine Neg (Negative); Glucose Urine UA Norm (Normal); Ketones Urine 1+ (Negative); Leukocyte Esterase Urine Trace (Negative); Mucus Urine 1+ /hpf; Nitrate Urine Negative (Negative); Protein Urine Neg (Negative); Squamous Epithelial Cell Urine 0-4 /hpf (0-5); Urine Appearance Clear (CLEAR); Urine Color Yellow (Yellow); Urobilinogen Urine Neg (Negative); WBC Urine 0-4 /hpf (0-5); pH Urine 5 (5-7)
[2022-12-11] MEDS: HYDROmorphone 1 mg/mL INJ 1 mL IVP ×2 (04:18→10:13)
[2022-12-11] MEDS: pantoprazole DR 40 mg Tablet PO (05:45)
[2022-12-11] MEDS: amlodipine 10 mg Tablet PO (05:45)
[2022-12-11] MEDS: lisinopril 20 mg Tablet PO (05:45)
[2022-12-11 07:37] LABS: Basophils % 0.4 %; Eosinophils # 0.2 10^3/uL (0.0-0.8); Eosinophils % 2.9 %; Hematocrit 36.1 % (37.0-47.0); Hemoglobin 10.9 g/dL (11.5-15.3); Lymphocytes # 0.3 10^3/uL (0.8-4.8); Lymphocytes % 3.3 %; Mean Corpuscular HGB Conc 30.2 g/dL (30.0-36.0); Mean Corpuscular Hemoglobin 30.3 pg (28.0-34.0); Mean Corpuscular Volume 100.3 fl (81-99); Mean Platelet Volume 11.9 fL (7.4-10.4); Monocytes # 0.7 10^3/uL (0.2-0.9); Monocytes % 9.5 %; Neutrophils # 6.28 10^3/uL (1.8-7.7); Neutrophils % 82.7 %; Nucleated Red Blood Cells % 0 %; Platelet Count 160 10^3/cmm (130-400); Red Cell Distribution Width 15.6 % (12.1-15.1); White Blood Count 7.6 10^3/uL (4.0-10.0)
[2022-12-11 07:58] LABS: Albumin Level 3.4 g/dL (3.5-5.2); Alkaline Phosphatase 97 U/L (35-105); Blood Urea Nitrogen 9 mg/dL (8-23); Carbon Dioxide 23 mmol/L (22-29); Chloride 103 mmol/L (98-107); Globulin 2.8 g/dL (1.3-4.6); Glomerular Filtration Rate 98.8 mL/min (90-130); Glucose 86 mg/dL (65-115); Osmolality Calculated 284 mOsm/kg (285-295); Sodium 138 mmol/L (136-145); Total Bilirubin 0.2 mg/dL (0.15-1.2); Total Protein 6.2 g/dL (6.6-8.7)
[2022-12-11 07:59] LABS: Alanine Aminotransferase 14 U/L (0-33); Anion Gap 16.9 (5-19); Aspartate Amino Transferase 31 U/L (0-32); Potassium 4.9 mmol/L (3.5-5.1)
[2022-12-11] MEDS: sucralfate 1 gm Tablet PO (08:57)
[2022-12-11] MEDS: polyethylene glycol 3350 Pkt 17 gm PO ×2 (08:57→20:56)
[2022-12-11] MEDS: HYDROmorphone 1 mg/mL INJ 1 mL 1.5 MG IVP ×4 (12:29→20:57)
--- NOTE | 2022-12-11 12:35 | PC.CHAP ---
Pastoral Care Encounter/Spiritual Assessment Type of Contact [] Declined public health sanitarian visit [] Patient/Family/Request visit [] Outpatient visit [] Follow-up visit [] Physician referral [] Code/Alert [x] Routine visit [] Staff referral [] Actively dying [] Patient sleeping [] Family support [] [] Out of room [] Palliative care [] [x] Receiving care in room [] Pre-surgical visit [] Trauma [] Long length of stay [] ICU visit [] Other: Relational/Emotional Strength [x] Patient feels connected with others/family/visitors/staff [] Distress [] Loneliness/isolation [] Abandonment Spirituality of Patient [x] Person of Laila [] Attends Sabianist of their Laila [x] Believes in Prayer [] Reads Bible or Congregational materials [] There are Spiritual issues to be addressed Steam Box Tender Interventions [x] Prayer [x] Active listening [x] Non-anxious presence [x] Spiritual/emotional support [] Crisis/trauma care [x] Spiritual counseling [] Bereavement support [] Provided bereavement packet [] Provided Bible/devotional materials [] Provided toy/stuffed animal, coloring book to patient or family member [] Provided Communion [] Anointing/[place] [] Salvation [x] Completed spiritual assessment [] Other: Impact on Illness or Injury [] Angry [] Fearful [] Anxious [] Often cries [] Exhaustion [] Unable to work [] Unable to attend gnosticist [] Unable to walk/stand [] Unable to read [] Unable to drive [] Unable to eat/drink [] Unable to sleep [] Unable to be with family [] Patient intubated [] Other: Summary infolmation waiting on doctor for results well go home at some point Time spent with patient 10 mins
--- NOTE | 2022-12-11 14:15 | P.PN_ITS ---
Subjective Subjective: She is still in pain this morning, pain in right anterolateral lower chest. Quite bothersome. Vitals/I&O/Wt Last Vital Signs Temp 97.5 F L 12/11/22 12:00 Pulse 86 12/11/22 12:00 Resp 17 12/11/22 12:29 BP 116/68 12/11/22 12:00 Pulse Ox 99 12/11/22 12:29 O2 Del Method Nasal Cannula 12/11/22 12:00 O2 Flow Rate 3 12/11/22 08:45 12/10/22 12/11/22 12/11/22 22:59 06:59 14:59 Intake Total 1200 / 1200 240 / 240 Balance 1200 / 1200 240 / 240 Weight last 48 hrs Weight 74.389 kg Physical Exam Const: COMMON NORMALS: patient oriented x3 and alert GENERAL APPEARANCE: cooperative ORIENTATION/CONSCIOUSNESS: Yes awake HENMT: COMMON NORMALS: oropharynx normal Neck/C-Spine: COMMON NORMALS: no JVD Chest: OTHER: Tender R side lower chest wall. Resp: COMMON NORMALS: normal respiratory effort and clear to auscultation bilaterally AUSCULTATION: clear to auscultation bilaterally and rhonchi (Few) Cardio: COMMON NORMALS: no JVD, regular rhythm, S1 normal heart sound present, S2 normal heart sound present and No murmurs present (Cardio) RHYTHM: regular rhythm HEART SOUNDS: S1 normal heart sound present and S2 normal heart sound present GI: COMMON NORMALS: Normal to inspection, nondistended, normoactive bowel sounds present, Soft to palpation and non-tender PALPATION: Yes Soft to palpation OTHER: Soft nontender abdomen, including RUQ, negative Chahal. Extremity: COMMON NORMALS: no joint enlargement and no pedal edema Neuro: COMMON NORMALS: patient oriented x3 and moves all extremities SENSORIUM/ORIENTATION: Yes alert Skin: GENERAL SKIN EXAM: ecchymosis Data 12/11/22 06:41 12/11/22 06:41 A&P Assessment and plan (1) Intractable pain: Despite 1 mg every 4 hours IV Dilaudid still in pain this morning, IV was lost and did not receive the morning dose of Dilaudid. Increase Dilaudid frequency to 1.5 hours. Port had to be accessed for IV medication administration. Subsequently still in pain, increasing dose again up to 1.5 mg every 2 hours. Monitor response. Discussed with her also continuation of fentanyl patch for now at current dose. Reassess in the morning if need to increase. Continuous pulse ox monitoring. Telemetry monitoring. Naloxone nasal both needed. As she has not been responding to 30 mg 12-hour formulation of morphine twice daily in addition to every 6 hours 15 mg MS IR, has not been taking her oxycodone but was on oxycodone previously, likely with some tolerance. Discussed with her starting IV opioid, will add IV Dilaudid as well as fentanyl patch. We will also add locally lidocaine patch on rib cage. In addition discussed Tylenol and conservative measures as well. Discussed that we may not be able to relieve her pain entirely especially if it starts affecting her mental status as she would like to remain functional. Al though we will try to at least take the edge off. Discussed consideration of adverse effects. We will start on 50 mg fentanyl patch. Dilaudid 1 mg every 4 hours as needed for breakthrough severe pain. Lidocaine patch locally. Tylenol as needed. Monitor for respiratory depression, AMS. Continuous pulse oximetry. Naloxone as needed. Continue I-S. Otherwise without leukocytosis and CBC otherwise unremarkable, afebrile. Liver parameters WNL. Noted CT scan chest abdomen pelvis with mild emphysema mild basilar atelectasis and parabronchial thickening centrally. Known malignancy. In the abdomen multiple low-density foci in the liver including larger low-density lesion of 2.5 cm within the left lobe suggestive of metastatic disease. 1.5 cm low- density lesion superimposed aspect of the spleen could indicate a metastatic focus or other splenic lesion. Tiny gallstone cholelithiasis. Colonic diverticulosis. Soft tissue mass anterior lateral lower right rib suggestive of metastatic dis ease involving this rib. Does have liver lesions. CMP noted unremarkable. Pain SNF right anterolateral lower chest wall. No right upper quadrant abdominal pain, negative Chahal. Repeat CMP. UA noted unremarkable. (2) Constipation: Continue senna, added twice daily MiraLAX. Discussed with her Dulcolax posters available as needed. She feels constipation may be worsening. Will not add Metamucil. Discussed with her additional measures if needed. (3) Goals of care, counseling/discussion: Specifically with regards to CODE STATUS, she prefers not to receive CPR in case of cardiopulmonary arrest in such an event to be kept comfortable and allow nature to take its course. Plan Metastatic squamous cell lung cancer: Pending biopsy of right lower anterolateral chest wall lesion, initiation of radiation therapy. Smoking addiction: Nicotine replacement as needed. Nicotine patches, lozenges available upon request. HTN: Monitor blood pressure. Continue lisinopril. Insomnia: Continue Ambien Port-A-Cath in place Other medical problems noted. With regards to DVT prophylaxis, discussed elevated risk of DVT in the presence of cancer, but also due to recent decrease in mobility. Discussed consideration of prophylactic dose heparin, however, she is quite concerned as was instructed not to take any anticoagulants in the preceding 5 days before the biopsy so has not increased risk of bleeding. At this time SCD only, prefers not to have any additional agents so as not to complicate the biopsy on Thursday. Discussed with case management. Attestations Medical Necessity Statement*: Continue hospitalization for optimization of intractable pain related to metastatic cancer, nonresponsive to oral therapy. Diagnoses Intractable pain R52 Constipation K59.00 Goals of care, counseling/discussion Z71.89
[2022-12-11] MEDS: zolpidem 5 mg Tablet PO (20:56)
[2022-12-11] MEDS: sennosides 8.6 mg Tablet PO (20:56)
[2022-12-11] MEDS: BuSPIRONE 10 mg Tablet 5 MG PO (20:56)
[2022-12-12] VITALS (27 sets, daily range): BP systolic 118–146; BP diastolic 53–91; PULSE 68–89; RESP 16–22; TEMP 36.3–36.8; O2SAT 2–100
[2022-12-12] MEDS: HYDROmorphone 1 mg/mL INJ 1 mL 1.5 MG IVP ×3 (02:07→08:25)
[2022-12-12 07:08] LABS: Basophils % 0.4 %; Eosinophils # 0.2 10^3/uL (0.0-0.8); Eosinophils % 3.1 %; Hematocrit 33.8 % (37.0-47.0); Hemoglobin 10.7 g/dL (11.5-15.3); Lymphocytes # 0.2 10^3/uL (0.8-4.8); Lymphocytes % 3.5 %; Mean Corpuscular HGB Conc 31.7 g/dL (30.0-36.0); Mean Corpuscular Hemoglobin 31.9 pg (28.0-34.0); Mean Corpuscular Volume 100.9 fl (81-99); Mean Platelet Volume 11.4 fL (7.4-10.4); Monocytes # 0.6 10^3/uL (0.2-0.9); Neutrophils # 5.59 10^3/uL (1.8-7.7); Neutrophils % 82.2 %; Nucleated Red Blood Cells % 0 %; Platelet Count 153 10^3/cmm (130-400); Red Blood Count 3.35 10^6/uL (4.1-5.3); Red Cell Distribution Width 15.4 % (12.1-15.1); White Blood Count 6.8 10^3/uL (4.0-10.0)
[2022-12-12 07:09] LABS: Alanine Aminotransferase 12 U/L (0-33); Albumin Level 3.2 g/dL (3.5-5.2); Alkaline Phosphatase 92 U/L (35-105); Anion Gap 13.8 (5-19); Aspartate Amino Transferase 22 U/L (0-32); Blood Urea Nitrogen 7 mg/dL (8-23); Calcium 9.2 mg/dL (8.5-10.5); Carbon Dioxide 24 mmol/L (22-29); Chloride 103 mmol/L (98-107); Globulin 2.8 g/dL (1.3-4.6); Glucose 101 mg/dL (65-115); Osmolality Calculated 282 mOsm/kg (285-295); Potassium 3.8 mmol/L (3.5-5.1); Sodium 137 mmol/L (136-145); Total Bilirubin 0.2 mg/dL (0.15-1.2)
[2022-12-12] MEDS: lidocaine 5% Patch 1 PATCH TOPICAL (10:16)
[2022-12-12] MEDS: HYDROmorphone 1 mg/mL INJ 1 mL 2 MG IVP ×5 (11:54→23:56)
--- NOTE | 2022-12-12 12:44 | US_ITS ---
WS: [id number] ULTRASOUND GUIDED BIOPSY RIGHT ANTERIOR EIGHTH RIB. HISTORY: Destructive process involving the anterior RIGHT eighth rib. 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 Recent positive PET/CT imaging. This study was performed as an inpatient. Patient was receiving pain medication on the floor. No angie tional IV medication was given other than previously ordered medications during this procedure. Patie nt was receiving Dilaudid. Procedure, risks, and complications are explained to the patient. Consent was obtained. Skin is clean sed with ChloraPrep and anesthetized with 1% buffered lidocaine. Rib lesion is identified. Skin is cleansed with ChloraPrep and anesthetized with 1% buffered lidocain e. Large amount of lidocaine was distributed around the lesion. Patient was in extreme amount of pain prior to the examination. Through a small dermatome multiple 20-gauge core biopsies are obtained and placed in formalin. No com plications are encountered. Sterile bandages will be applied to the dermatome and patient will return to the medical floor. US/US biopsy bone superfic IMPRESSION: 1. Uncomplicated biopsy of the destructive lesion involving the RIGHT eighth r ib. Soft tissue component of the rib lesion is biopsied. There is also evidence for destroyed rib. 2. Specimen placed in formalin and sent to pathology.
[2022-12-12] MEDS: sodium chloride 0.9% 1,000 ML 30 ML IV (12:55)
[2022-12-12] MEDS: HYDROmorphone 1 mg/mL INJ 1 mL IVP (13:32)
[2022-12-12] MEDS: polyethylene glycol 3350 Pkt 17 gm PO (18:21)
[2022-12-12] MEDS: sennosides 8.6 mg Tablet PO (18:21)
[2022-12-12] MEDS: sucralfate 1 gm Tablet PO (18:21)
[2022-12-12] MEDS: BuSPIRONE 10 mg Tablet 5 MG PO (20:29)
[2022-12-12] MEDS: zolpidem 5 mg Tablet PO (20:29)
--- NOTE | 2022-12-12 20:42 | P.PN_ITS ---
Subjective Subjective: Still in pain this morning, this morning charted 03/17. Pain mostly in right lower anterolateral lower chest wall. Vitals/I&O/Wt Last Vital Signs Temp 97.6 F 12/12/22 19:49 Pulse 77 12/12/22 19:49 Resp 16 12/12/22 19:49 BP 119/66 12/12/22 19:49 Pulse Ox 93 12/12/22 19:49 O2 Del Method Room Air 12/12/22 19:49 O2 Flow Rate 3 12/12/22 13:45 12/12/22 12/12/22 12/12/22 06:59 14:59 22:59 Intake Total 100 / 100 240 / 340 Balance 100 / 100 240 / 340 Physical Exam Const: COMMON NORMALS: patient oriented x3 and alert GENERAL APPEARANCE: cooperative ORIENTATION/CONSCIOUSNESS: Yes awake HENMT: COMMON NORMALS: oropharynx normal Neck/C-Spine: COMMON NORMALS: no JVD Chest: OTHER: Tender R side lower chest wall. Resp: COMMON NORMALS: normal respiratory effort and clear to auscultation bilaterally AUSCULTATION: clear to auscultation bilaterally and rhonchi (Few) Cardio: COMMON NORMALS: no JVD, regular rhythm, S1 normal heart sound present, S2 normal heart sound present and No murmurs present (Cardio) RHYTHM: regular rhythm HEART SOUNDS: S1 normal heart sound present and S2 normal heart sound present GI: COMMON NORMALS: Normal to inspection, nondistended, normoactive bowel sounds present, Soft to palpation and non-tender PALPATION: Yes Soft to palpation OTHER: Soft nontender abdomen, including RUQ, negative Chahal. Extremity: COMMON NORMALS: no joint enlargement and no pedal edema Neuro: COMMON NORMALS: patient oriented x3 and moves all extremities SENSORIUM/ORIENTATION: Yes alert Skin: GENERAL SKIN EXAM: ecchymosis Data 12/12/22 06:37 12/12/22 06:37 A&P Assessment and plan (1) Intractable pain: Blood pressure this morning better, still in pain charted 03/17 despite IV Dilaudid, fentanyl patch. Increase Dilaudid to 2 mg IV every 2 hours as needed. Increase fentanyl patch to 75 mcg. Continue to monitor with pulse oximetry, at risk of respiratory depression. Discussed nursing staff monitoring mental status especially with pain medication doses, at risk of AMS. Monitor kidney function with escalation of opiate therapy. Creatinine noted 0.5, BUN 7. Lidocaine patch reordered, for some reason original order was no longer active. Continuous pulse ox monitoring, telemetry monitoring. Naloxone nasal both needed. Continue hospitalization. Discussed with case management. Continue I-S. Otherwise without leukocytosis and CBC otherwise unremarkable, afebrile. Liver parameters WNL. Noted CT scan chest abdomen pelvis with mild emphysema mild basilar atelectasis and parabronchial thickening centrally. Known malignancy. In the abdomen multiple low-density foci in the liver including larger low-density lesion of 2. 5 cm within the left lobe suggestive of metastatic disease. 1.5 cm low-density lesion superimposed aspect of the spleen could indicate a metastatic focus or other splenic lesion. Tiny gallstone cholelithiasis. Colonic diverticulosis. Soft tissue mass anterior lateral lower right rib suggestive of metastatic disease involving this rib. Does have liver lesions. CMP noted unremarkable T. bili, AST, LT, alk phos. Pain right anterolateral lower chest wall. No right upper quadrant abdominal pain, negative Chahal. Continue to monitor given severity of her pain and presence of liver lesions. R epeat requested. (2) Constipation: So far no BM. We will add milk of magnesia. (3) Goals of care, counseling/discussion: Plan Metastatic squamous cell lung cancer: Underwent biopsy of right lower quadrant anterolateral chest wall lesion. Imaging results noted, uneventful. Specimen in pathology. Smoking addiction: Nicotine replacement as needed. Nicotine patches, lozenges available upon request. HTN: Monitor blood pressure. Continue lisinopril. Insomnia: Continue Ambien Port-A-Cath in place Other medical problems noted. With regards to DVT prophylaxis, discussed elevated risk of DVT in the presence of cancer, but also due to recent decrease in mobility. Discussed consideration of prophylactic dose heparin, however, she is quite concerned as was instructed not to take any anticoagulants in the preceding 5 days before the biopsy so has not increased risk of bleeding. At this time SCD only, prefers not to have any additional agents so as not to complicate the biopsy on Thursday. Discussed with case management. Attestations Medical Necessity Statement*: Continue hospitalization for optimization of intractable pain related to metastatic cancer, nonresponsive to oral therapy. Diagnoses Intractable pain R52 Constipation K59.00 Goals of care, counseling/discussion Z71.89
[2022-12-12] MEDS: zinc oxide oint 30 gm 1 APPLIC TOPICAL (21:56)
[2022-12-12] MEDS: magnesium hydroxide 30 mL UDC PO (21:56)
[2022-12-13] VITALS (17 sets, daily range): BP systolic 102–155; BP diastolic 60–100; PULSE 74–94; RESP 14–92; TEMP 36.4–36.9; O2SAT 91–97
[2022-12-13] MEDS: lisinopril 20 mg Tablet PO (04:53)
[2022-12-13] MEDS: HYDROmorphone 1 mg/mL INJ 1 mL 2 MG IVP ×5 (04:53→21:16)
[2022-12-13] MEDS: amlodipine 10 mg Tablet PO (04:53)
[2022-12-13] MEDS: pantoprazole DR 40 mg Tablet PO (04:53)
[2022-12-13 07:20] LABS: Basophils % 0.3 %; Eosinophils # 0.3 10^3/uL (0.0-0.8); Eosinophils % 2.9 %; Hematocrit 34.4 % (37.0-47.0); Hemoglobin 10.7 g/dL (11.5-15.3); Lymphocytes # 0.2 10^3/uL (0.8-4.8); Lymphocytes % 2.4 %; Mean Corpuscular HGB Conc 31.1 g/dL (30.0-36.0); Mean Corpuscular Hemoglobin 31.2 pg (28.0-34.0); Mean Corpuscular Volume 100.3 fl (81-99); Mean Platelet Volume 11.6 fL (7.4-10.4); Monocytes # 0.7 10^3/uL (0.2-0.9); Monocytes % 8.2 %; Neutrophils # 7.36 10^3/uL (1.8-7.7); Neutrophils % 84.4 %; Nucleated Red Blood Cells % 0 %; Platelet Count 150 10^3/cmm (130-400); Red Blood Count 3.43 10^6/uL (4.1-5.3); Red Cell Distribution Width 15.1 % (12.1-15.1); White Blood Count 8.7 10^3/uL (4.0-10.0)
[2022-12-13 07:47] LABS: Alanine Aminotransferase 13 U/L (0-33); Albumin Level 3.4 g/dL (3.5-5.2); Alkaline Phosphatase 98 U/L (35-105); Aspartate Amino Transferase 25 U/L (0-32); Blood Urea Nitrogen 8 mg/dL (8-23); Calcium 9.5 mg/dL (8.5-10.5); Carbon Dioxide 26 mmol/L (22-29); Chloride 99 mmol/L (98-107); Globulin 2.8 g/dL (1.3-4.6); Glucose 91 mg/dL (65-115); Osmolality Calculated 276 mOsm/kg (285-295); Sodium 134 mmol/L (136-145); Total Bilirubin 0.2 mg/dL (0.15-1.2); Total Protein 6.2 g/dL (6.6-8.7)
[2022-12-13] MEDS: lidocaine 5% Patch 1 PATCH TOPICAL (08:40)
[2022-12-13] MEDS: polyethylene glycol 3350 Pkt 17 gm PO ×2 (08:40→17:58)
[2022-12-13] MEDS: sucralfate 1 gm Tablet PO ×2 (08:46→17:58)
[2022-12-13] MEDS: zinc oxide oint 30 gm 1 APPLIC TOPICAL (08:48)
[2022-12-13 09:43] LABS: Creatine Phosphokinase 66 U/L (26-192)
[2022-12-13] MEDS: sodium chloride 0.9% 1,000 ML 30 ML IV (12:33)
[2022-12-13] MEDS: sennosides 8.6 mg Tablet PO (17:58)
--- NOTE | 2022-12-13 20:52 | P.PN_ITS ---
Subjective Subjective: 62 getting somewhat better controlled with pain. At times pain even controlled overnight, however, this morning again 03/17. Vitals/I&O/Wt Last Vital Signs Temp 97.8 F 12/13/22 20:00 Pulse 87 12/13/22 20:00 Resp 17 12/13/22 20:00 BP 102/62 12/13/22 20:00 Pulse Ox 95 12/13/22 20:00 O2 Del Method Nasal Cannula 12/13/22 19:29 O2 Flow Rate 3 12/13/22 19:29 12/13/22 12/13/22 12/13/22 06:59 14:59 22:59 Intake Total 360 / 360 Balance 360 / 360 Physical Exam Narrative: Visited by family. Const: COMMON NORMALS: patient oriented x3 and alert GENERAL APPEARANCE: cooperative ORIENTATION/CONSCIOUSNESS: Yes awake HENMT: COMMON NORMALS: oropharynx normal Neck/C-Spine: COMMON NORMALS: no JVD Chest: OTHER: Tender R side lower chest wall. Resp: COMMON NORMALS: normal respiratory effort and clear to auscultation bilaterally AUSCULTATION: clear to auscultation bilaterally and rhonchi (Few) Cardio: COMMON NORMALS: no JVD, regular rhythm, S1 normal heart sound present, S2 normal heart sound present and No murmurs present (Cardio) RHYTHM: regular rhythm HEART SOUNDS: S1 normal heart sound present and S2 normal heart sound present GI: COMMON NORMALS: Normal to inspection, nondistended, normoactive bowel sounds present, Soft to palpation and non-tender PALPATION: Yes Soft to palpation OTHER: Soft nontender abdomen, including RUQ, negative Chahal. Extremity: COMMON NORMALS: no joint enlargement and no pedal edema Neuro: COMMON NORMALS: patient oriented x3 and moves all extremities SENSORIUM/ORIENTATION: Yes alert Skin: GENERAL SKIN EXAM: ecchymosis OTHER: Papular rash on lower extremities, dry skin. Now improving. Data 12/13/22 06:38 12/13/22 06:38 A&P Assessment and plan (1) Intractable pain: She appears to be reaching a point with some control of the pain. No overnight some pain levels down to 0. This morning again up to 10. Continue regimen unchanged currently with fentanyl patch likely beginning to work, continue current dose, continue hydromorphone 2 mg IV every 2 hours as needed. If continues with better control we will see if can switch her to oral Dilaudid for breakthrough use. Continue lidocaine patch. Now that she has also had a biopsy will be able to follow up with palliative radiation. Escalating bowel regimen due to persistent constipation. Added magnesium hydroxyzine. Discussed with her we will give Dulcolax suppository. If no improvement may need enema. Naloxone if needed. Continue hospitalization. Discussed with case management. Continue I-S. Remains afebrile. Noted no leukocytosis. Liver parameters remain normal. Sodium 134. Renal function, follow-up. Noted CT scan chest abdomen pelvis with mild emphysema mild basilar atelectasis and parabronchial thickening centrally. Known malignancy. In the abdomen multiple low-density foci in the liver including larger low-density lesion of 2.5 cm within the left lobe suggestive of metastatic disease. 1.5 cm low- density lesion superimposed aspect of the spleen could indicate a metastatic focus or other splenic lesion. Tiny gallstone cholelithiasis. Colonic diverticulosis. Soft tissue mass anterior lateral lower right rib suggestive of metastatic disease involving this rib. Does have liver lesions. CMP noted unremarkable T. bili, AST, LT, alk phos. Pain right anterolateral lower chest wall. No right upper quadrant abdominal pain, negative Chahal. Continue to monitor given severity of her pain and presence of liver lesions. Repeat requested. Lower extremity rash: With excoriations, emollient is helping. Improving. (2) Constipation: Severe constipation. At risk of bowel obstruction. So far no BM. Continue senna, MiraLAX, milk of magnesia, will give Dulcolax suppository. May need enema. (3) Goals of care, counseling/discussion: Plan Metastatic squamous cell lung cancer: Underwent biopsy of right lower quadrant anterolateral chest wall lesion. Imaging results noted, uneventful. Specimen in pathology. Smoking addiction: Nicotine replacement as needed. Nicotine patches, lozenges available upon request. HTN: Monitor blood pressure. Continue lisinopril. Insomnia: Continue Ambien Port-A-Cath in place Other medical problems noted. Recheck hemoglobin, if no issues at biopsy site, and DVT prophylaxis with Lovenox. Discussed with case management. Attestations Medical Necessity Statement*: Continue hospitalization for optimization of intractable pain related to metastatic cancer, nonresponsive to oral therapy. Diagnoses Intractable pain R52 Constipation K59.00 Goals of care, counseling/discussion Z71.89
[2022-12-13] MEDS: bisacodyl 10 mg Supp PR (21:14)
[2022-12-13] MEDS: magnesium hydroxide 30 mL UDC PO (21:19)
[2022-12-13] MEDS: BuSPIRONE 10 mg Tablet 5 MG PO (21:19)
[2022-12-13] MEDS: zolpidem 5 mg Tablet PO (21:19)
[2022-12-14] VITALS (9 sets, daily range): BP systolic 107–143; BP diastolic 62–77; PULSE 75–102; RESP 16–20; TEMP 36.1–36.8; O2SAT 92–98
--- NOTE | 2022-12-14 00:04 | PC.NURSE ---
Patient given suppository around 2113. Patient asking multiple times for something to help her go. Dr. Wills notified. Tap water enema ordered.
[2022-12-14] MEDS: HYDROmorphone 1 mg/mL INJ 1 mL 2 MG IVP ×2 (00:13→05:24)
--- NOTE | 2022-12-14 00:17 | PC.NURSE ---
Patient had small BM with 3 avril. Patient states that she is wore out and wants to wait on the enema.
[2022-12-14] MEDS: amlodipine 10 mg Tablet PO (05:18)
[2022-12-14] MEDS: pantoprazole DR 40 mg Tablet PO (05:18)
[2022-12-14] MEDS: lisinopril 20 mg Tablet PO (05:18)
[2022-12-14 05:53] LABS: Basophils % 0.4 %; Eosinophils # 0.2 10^3/uL (0.0-0.8); Eosinophils % 1.7 %; Hematocrit 35.5 % (37.0-47.0); Hemoglobin 10.9 g/dL (11.5-15.3); Lymphocytes # 0.4 10^3/uL (0.8-4.8); Lymphocytes % 3.7 %; Mean Corpuscular HGB Conc 30.7 g/dL (30.0-36.0); Mean Corpuscular Hemoglobin 30.3 pg (28.0-34.0); Mean Corpuscular Volume 98.6 fl (81-99); Mean Platelet Volume 11.8 fL (7.4-10.4); Monocytes # 0.7 10^3/uL (0.2-0.9); Neutrophils # 8.94 10^3/uL (1.8-7.7); Neutrophils % 85.3 %; Nucleated Red Blood Cells % 0 %; Platelet Count 166 10^3/cmm (130-400); White Blood Count 10.5 10^3/uL (4.0-10.0)
[2022-12-14 06:07] LABS: Alanine Aminotransferase 16 U/L (0-33); Albumin Level 3.4 g/dL (3.5-5.2); Alkaline Phosphatase 110 U/L (35-105); Anion Gap 12.9 (5-19); Aspartate Amino Transferase 32 U/L (0-32); Blood Urea Nitrogen 8 mg/dL (8-23); Calcium 9.5 mg/dL (8.5-10.5); Carbon Dioxide 28 mmol/L (22-29); Chloride 100 mmol/L (98-107); Glucose 106 mg/dL (65-115); Osmolality Calculated 283 mOsm/kg (285-295); Potassium 3.9 mmol/L (3.5-5.1); Sodium 137 mmol/L (136-145); Total Bilirubin 0.2 mg/dL (0.15-1.2); Total Protein 6.4 g/dL (6.6-8.7)
[2022-12-14] MEDS: polyethylene glycol 3350 Pkt 17 gm PO ×2 (09:31→17:40)
[2022-12-14] MEDS: lidocaine 5% Patch 1 PATCH TOPICAL (09:32)
[2022-12-14] MEDS: sucralfate 1 gm Tablet PO ×2 (09:32→17:39)
[2022-12-14] MEDS: zinc oxide oint 30 gm 1 APPLIC TOPICAL (09:39)
--- NOTE | 2022-12-14 15:08 | PM.DCS ---
Discharge Providers Date of Admission: 12/10/22 18:54 Date of Discharge: December 14, 2022 Attending Provider at Admission: Jonathan Cespedes Attending Provider at Discharge: Jonathan Cespedes Primary Care Provider: TRACY Villa Diagnoses at Discharge Discharge Diagnosis (1) Intractable pain: Status: Acute (2) Constipation: Status: Acute (3) Goals of care, counseling/discussion: Status: Acute Reason for Visit Reason for Visit: chest pain Hospital Course Hospital Course Pleasant 72-year-old lady with metastatic squamous cell lung cancer to lymph nodes, organs including liver, also with right anterolateral lower chest lesion which has been extremely painful, pending biopsy and arrangements for palliative radiation came into the hospital due to intractable pain in the anterolateral right lower chest over the site of the lesion. Liver parameters otherwise without abnormality, Chahal negative, no suggestion of liver disease. CT scan chest abdomen pelvis obtained in ER as below. She came to ER due to intractable severe pain particularly over the anterolateral lower right chest and some lower back pain not responsive to morphine she has been taking at home including 30 mg extended release every 12 hours as well as every 6 hours MS IR 15 mg which did not take care of the pain at all. In the hospital with difficult to control pain, with Tylenol, lidocaine patch, requiring multiple/frequent IV Dilaudid medications and with fentanyl patch. Fentanyl patch increased to 75 mcg, IV Dilaudid uptitrated up to 2 mg doses as often as every 2 hours if needed, with telemetry and pulse oximetry monitoring, naloxone available if needed. She remained awake and alert. Pain difficult to control, gradually with better control with up titration of pain regimen. Today switched over to oral Dilaudid 6 mg and will be discharging with it every 4 hours as needed, continue fentanyl patch 75 mcg, lidocaine patch, Tylenol as needed, other conservative measures. Naloxone is provided at discharge. She understands risks of comorbidities with opioids, including constipation which has been an issue in the hospital and required intensive bowel regimen as well as an enema, had a bowel movement. Continue bowel regimen at discharge. Is referred to palliative care. During hospitalization underwent ultrasound-guided biopsy of the lesion in anterolateral right lower rib cage, sample sent to pathology. Please follow-up. Continue follow-up with oncology, arrangements for palliative radiation as per prior plans. In the hospital also noted intertrigo restarted on nystatin, also noted maculopapular rash on lower extremities which is now improving, unclear cause, possibly related to morphine, but could be secondary to other causes, chemotherapeutic agent or other medication. No eosinophilia. No mucosal lesions or bullae. She is referred to dermatology for follow-up as well. Please reassess for continued improvement. Physical Exam Const: COMMON NORMALS: patient oriented x3 and alert GENERAL APPEARANCE: cooperative ORIENTATION/CONSCIOUSNESS: Yes awake HENMT: COMMON NORMALS: oropharynx normal Neck/C-Spine: COMMON NORMALS: no JVD Chest: OTHER: Tender R side lower chest wall. Resp: COMMON NORMALS: normal respiratory effort and clear to auscultation bilaterally AUSCULTATION: clear to auscultation bilaterally and rhonchi (Few) Cardio: COMMON NORMALS: no JVD, regular rhythm, S1 normal heart sound present, S2 normal heart sound present and No murmurs present (Cardio) RHYTHM: regular rhythm HEART SOUNDS: S1 normal heart sound present and S2 normal heart sound present GI: COMMON NORMALS: Normal to inspection, nondistended, normoactive bowel sounds present, Soft to palpation and non-tender PALPATION: Yes Soft to palpation OTHER: Soft nontender abdomen, including RUQ, negative Chahal. Extremity: COMMON NORMALS: no joint enlargement and no pedal edema Neuro: COMMON NORMALS: patient oriented x3 and moves all extremities SENSORIUM/ORIENTATION: Yes alert Skin: GENERAL SKIN EXAM: ecchymosis OTHER: Papular rash on lower extremities. Now improving. Dry skin doing better with zinc oxide. No open lesions, no drainage, no bullae. Discharge Data Studies Completed and Pending Completed Studies During Hospitalization Category Date Time Status CTA chest CT abdomen pelvis [CT angio chest w abd pel Cat Scan 12/10/22 15:10 Completed wo/w] Stat Pathology: Surgical [PTH] Routine Pth 12/12/22 13:44 Completed US biopsy bone superfic Routine Ultrasound 12/12/22 12:44 Completed Pending at discharge Category Date Time Status Complete Blood Count w/Auto AM LABS Lab 12/15/22 04:00 Ordered Complete Blood Count w/Auto AM LABS Lab 12/16/22 04:00 Ordered Comprehensive Metabolic Panel AM LABS Lab 12/15/22 04:00 Ordered Comprehensive Metabolic Panel AM LABS Lab 12/16/22 04:00 Ordered Radiology Impressions Chest/Abdomen/Pelvis CT 12/10/22 15:10 IMPRESSION: 1. No CT findings of pulmonary embolus. 2. Mild emphysematous change with mild basilar atelectasis and peribronchial thickening centrally. 3. Other findings in this patient with known malignancy in the chest as noted above. IMPRESSION: 1. Multiple low-density foci within the liver including a larger low-density lesion of 3.5 cm within the left lobe suggestive of metastatic disease. 2. 1.5 cm low-density lesion superomedial aspect of the spleen could indicate metastatic focus or other splenic lesion. 3. Suggestion of tiny gallstone or cholelithiasis. 4. Colonic diverticulosis without CT findings of diverticulitis. 5. Soft tissue mass in association with an anterolateral lower right rib suggestive of metastatic disease involving this rib. This is at the level lateral to the liver. Biopsy Ultrasound 12/12/22 12:44 IMPRESSION: 1. Uncomplicated biopsy of the destructive lesion involving the RIGHT eighth rib. Soft tissue component of the rib lesion is biopsied. There is also evidence for destroyed rib. 2. Specimen placed in formalin and sent to pathology. Laboratory Results WBC 10.5 10^3/uL (4.0-10.0) H 12/14/22 05:25 RBC 3.60 10^6/uL (4.1-5.3) L 12/14/22 05:25 Hgb 10.9 g/dL (11.5-15.3) L 12/14/22 05:25 Hct 35.5 % (37.0-47.0) L 12/14/22 05:25 MCV 98.6 fl (81-99) 12/14/22 05:25 MCH 30.3 pg (28.0-34.0) 12/14/22 05:25 MCHC 30.7 g/dL (30.0-36.0) 12/14/22 05:25 RDW 15.0 % (12.1-15.1) 12/14/22 05:25 Plt Count 166 10^3/cmm (130-400) 12/14/22 05:25 MPV 11.8 fL (7.4-10.4) H 12/14/22 05:25 Neut % (Auto) 85.3 % 12/14/22 05:25 Lymph % (Auto) 3.7 % 12/14/22 05:25 [place] % (Auto) 7.0 % 12/14/22 05:25 Eos % (Auto) 1.7 % 12/14/22 05:25 Baso % (Auto) 0.4 % 12/14/22 05:25 Neut # (Auto) 8.94 10^3/uL (1.8-7.7) H 12/14/22 05:25 Lymph # (Auto) 0.4 10^3/uL (0.8-4.8) L 12/14/22 05:25 [place] # (Auto) 0.7 10^3/uL (0.2-0.9) 12/14/22 05:25 Eos # (Auto) 0.2 10^3/uL (0.0-0.8) 12/14/22 05:25 Baso # (Auto) 0.0 10^3/uL (0.0-0.1) 12/14/22 05:25 Nucleated RBC % (auto) 0 % 12/14/22 05:25 Nucleated RBCs # 0.0 /100WBC 12/14/22 05:25 Sodium 137 mmol/L (136-145) 12/14/22 05:25 Potassium 3.9 mmol/L (3.5-5.1) 12/14/22 05:25 Chloride 100 mmol/L (98-107) 12/14/22 05:25 Carbon Dioxide 28 mmol/L (22-29) 12/14/22 05:25 Anion Gap 12.9 (5-19) 12/14/22 05:25 BUN 8 mg/dL (8-23) 12/14/22 05:25 Creatinine 0.5 mg/dL (0.5-0.9) 12/14/22 05:25 GFR Calculation 122.0 mL/min (90-130) 12/14/22 05:25 Glucose 106 mg/dL (65-115) 12/14/22 05:25 Calculated Osmolality 283 mOsm/kg (285-295) L 12/14/22 05:25 Calcium 9.5 mg/dL (8.5-10.5) 12/14/22 05:25 Total Bilirubin 0.2 mg/dL (0.15-1.2) 12/14/22 05:25 AST 32 U/L (0-32) 12/14/22 05:25 ALT 16 U/L (0-33) 12/14/22 05:25 Alkaline Phosphatase 110 U/L (35-105) H 12/14/22 05:25 Creatine Kinase 66 U/L (26-192) 12/13/22 06:38 Total Protein 6.4 g/dL (6.6-8.7) L 12/14/22 05:25 Albumin 3.4 g/dL (3.5-5.2) L 12/14/22 05:25 Globulin 3.0 g/dL (1.3-4.6) 12/14/22 05:25 Urine Color Yellow (Yellow) 12/11/22 01:51 Urine Appearance Clear (CLEAR) 12/11/22 01:51 Urine pH 5 (5-7) 12/11/22 01:51 Ur Specific [place] 1.020 (1.005-1.030) 12/11/22 01:51 Urine Protein Neg (Negative) 12/11/22 01:51 Urine Glucose (UA) Norm (Normal) 12/11/22 01:51 Urine Ketones 1+ (Negative) H 12/11/22 01:51 Urine Blood Neg (Negative) 12/11/22 01:51 Urine Nitrate Negative (Negative) 12/11/22 01:51 Urine Bilirubin Neg (Negative) 12/11/22 01:51 Urine Urobilinogen Neg mg/dL (Negative) 12/11/22 01:51 Ur Leukocyte Esterase Trace (Negative) H 12/11/22 01:51 Urine RBC None /hpf (0-2) 12/11/22 01:51 Urine WBC 0-4 /hpf (0-5) H 12/11/22 01:51 Ur Squamous Epith Cells 0-4 /hpf (0-5) H 12/11/22 01:51 Amorphous Sediment Not Reportable 12/11/22 01:51 Urine Bacteria 1+ /hpf (NONE) H 12/11/22 01:51 Urine Mucus 1+ /hpf 12/11/22 01:51 Vitals Last Vital Signs Temp 97 F L 12/14/22 11:34 Pulse 81 12/14/22 14:00 Resp 18 12/14/22 11:34 BP 107/62 12/14/22 11:34 Pulse Ox 97 12/14/22 11:34 O2 Del Method Nasal Cannula 12/14/22 11:34 O2 Flow Rate 2 12/14/22 08:00 Discharge Plan Discharge Patient Disposition: Home Condition: Stable Prescriptions: New hydromorphone 4 mg Tablet 6 mg PO Q4H PRN (Reason: Severe Pain) Qty: 90 0RF fentanyl 75 mcg/hr Patch 72 Hour 1 patch transdermal Q72H Qty: 5 0RF naloxone 4 mg/actuation spray,non-aerosol 0.4 mg intranasal PRN PRN (Reason: Respiratory Rate < 8/Min) Qty: 2 0RF polyethylene glycol 3350 17 gram Powder In Packet 17 g PO BID Qty: 180 0RF magnesium hydroxide [Milk of Magnesia] 400 mg/5 mL Suspension 30 ml PO BEDTIME Qty: 3780 0RF bisacodyl 10 mg Suppository 10 mg [place] DAILY PRN (Reason: Constipation) Qty: 90 0RF acetaminophen 325 mg Tablet 650 mg PO Q6H PRN (Reason: Mild/Mod Pain Or Temp >/= 101) Qty: 90 0RF lidocaine 5 % Adhesive Patch,Medicated 1 patch topical [id number] Qty: 14 0RF nystatin 100,000 unit/gram Cream 1 applic topical BID 14 Days Qty: 30 0RF zinc oxide 20 % Ointment 1 applic topical PRN PRN (Reason: Skin Protectant) Qty: 85 2RF Continued ipratropium-albuterol 0.5 mg-3 mg(2.5 mg base)/3 mL solution for nebulization 3 ml inhalation Q6H PRN (Reason: Respiratory Distress) (DME) nebulizer with supplies See Rx Instructions .Route .MEDSUPPLY Qty: 1 0RF Rx Instructions: As directed lorazepam 1 mg tablet 0.5 - 1 mg PO Q6H PRN (Reason: Severe Nausea) Qty: 30 3RF sucralfate [Carafate] 1 gram tablet 1 g PO BID pantoprazole 40 mg tablet,delayed release (DR/EC) 40 mg PO QAM Trelegy Ellipta 100-62.5-25 mcg blister with device 1 inh INHALATION DAILY PRN (Reason: Shortness Of Breath Or Wheezing) Compazine 10 mg Tablet 10 mg PO Q4H PRN (Reason: MILD NAUSEA) Laxative Pills 25 mg Tablet 50 mg PO QPM Reglan 10 mg Tablet 10 mg PO DAILY PRN (Reason: Nausea) lisinopril 20 mg tablet 20 mg PO QAM amlodipine 10 mg tablet 10 mg PO QAM buspirone 10 mg tablet 5 mg PO BEDTIME ergocalciferol (vitamin D2) 1,250 mcg (50,000 unit) capsule 50,000 unit PO Q7D Rx Instructions: on thursday levofloxacin 750 mg tablet 750 mg PO DAILY PRN (Reason: infection) zolpidem 10 mg tablet 5 mg PO BEDTIME Discontinued morphine 30 mg tablet extended release 30 mg PO Q12H 30 Days Qty: 60 0RF morphine 15 mg tablet 15 mg PO .Q4-6H PRN (Reason: pain) 30 Days Qty: 60 0RF oxycodone-acetaminophen 5-325 mg tablet 1 - 2 tab PO .EVERY 4-6 HOURS PRN (Reason: Pain) Rx Instructions: MEDICATION ON HOLD 12/10/22 Discharge Orders: Discharge Order (Routine); Ordered 12/14/22 Ordered By: Jonathan Cespedes Referrals: [facility] [Provider Group] - 1 week Atilio Mckeon DO [Hospitalist] - 7-10 days Juliana Montiel FNP [Primary Care Provider] - 4-7 days Discharge Diet: Low Cholesterol Patient Instructions: Fentanyl (Absorbed through the skin), Hydromorphone (By mouth), Naloxone (Into the nose), Opioid Safety Activity Restrictions/Additional Instructions: Do not take opiate if you are sleepy or confused or if respiratory depression is noted and your breathing is shallow and infrequent. Take off fentanyl patch immediately. Please get your family about naloxone to be used in case of respiratory depression with opiate medications. Follow-up with your primary doctor and palliative care for reassessment of pain, continued optimization of pain control medications. Continue bowel regimen for constipation. Continue follow-up as previously for arrangements of radiation therapy, follow-up with oncology. Please discuss with oncology and with your primary doctor regarding rash on the lower extremities which has been improving, however, still of not clear origin. Possibility morphine, morphine is discontinued, but could be related to chemotherapy or one of your other medications. Please also follow-up with dermatology. In case of any new or concerning symptoms seek medical attention immediately. Please stop smoking. Follow-up with your primary doctor regarding tiny gallstones. Discharge Attestations Time Spent in Discharge Care*: greater than 30 min Status at Discharge: Cognitive status at discharge: cognitively intact, Behavioral status at discharge: cooperative, Quality Metrics Clinical Quality Measures [ No reported AMI, CVA or VTE this stay] Coding Level of Care Code 13928 Total time (in minutes) for Discharge: 40 Diagnoses Intractable pain R52 Constipation K59.00 Goals of care, counseling/discussion Z71.89
[2022-12-14] MEDS: sennosides 8.6 mg Tablet PO (17:40)
[2022-12-14] MEDS: BuSPIRONE 10 mg Tablet 5 MG PO (21:03)
[2022-12-14] MEDS: zolpidem 5 mg Tablet PO (21:04)
[2022-12-14] MEDS: magnesium hydroxide 30 mL UDC PO (21:04)
[2022-12-15] VITALS (9 sets, daily range): BP systolic 105–112; BP diastolic 61–68; PULSE 73–95; RESP 16–18; TEMP 36.4–36.7; O2SAT 87–97
[2022-12-15] MEDS: pantoprazole DR 40 mg Tablet PO (05:38)
[2022-12-15] MEDS: amlodipine 10 mg Tablet PO (05:39)
[2022-12-15] MEDS: lisinopril 20 mg Tablet PO (05:39)
[2022-12-15 06:40] LABS: Basophils # 0.1 10^3/uL (0.0-0.1); Basophils % 0.8 %; Eosinophils # 0.3 10^3/uL (0.0-0.8); Eosinophils % 3.6 %; Hematocrit 33.1 % (37.0-47.0); Hemoglobin 10.1 g/dL (11.5-15.3); Lymphocytes # 0.3 10^3/uL (0.8-4.8); Lymphocytes % 4.3 %; Mean Corpuscular HGB Conc 30.5 g/dL (30.0-36.0); Mean Corpuscular Hemoglobin 31.2 pg (28.0-34.0); Mean Corpuscular Volume 102.2 fl (81-99); Mean Platelet Volume 11.9 fL (7.4-10.4); Monocytes # 0.7 10^3/uL (0.2-0.9); Monocytes % 8.9 %; Neutrophils # 6.28 10^3/uL (1.8-7.7); Neutrophils % 79.7 %; Nucleated Red Blood Cells % 0 %; Platelet Count 147 10^3/cmm (130-400); Red Blood Count 3.24 10^6/uL (4.1-5.3); Red Cell Distribution Width 15.5 % (12.1-15.1); White Blood Count 7.9 10^3/uL (4.0-10.0)
[2022-12-15 06:58] LABS: Alanine Aminotransferase 17 U/L (0-33); Albumin Level 3.1 g/dL (3.5-5.2); Alkaline Phosphatase 99 U/L (35-105); Anion Gap 14.1 (5-19); Aspartate Amino Transferase 31 U/L (0-32); Blood Urea Nitrogen 8 mg/dL (8-23); Calcium 9.4 mg/dL (8.5-10.5); Carbon Dioxide 29 mmol/L (22-29); Chloride 104 mmol/L (98-107); Globulin 2.7 g/dL (1.3-4.6); Glomerular Filtration Rate 98.8 mL/min (90-130); Glucose 102 mg/dL (65-115); Osmolality Calculated 295 mOsm/kg (285-295); Potassium 4.1 mmol/L (3.5-5.1); Sodium 143 mmol/L (136-145); Total Bilirubin 0.2 mg/dL (0.15-1.2); Total Protein 5.8 g/dL (6.6-8.7)
[2022-12-15] MEDS: sucralfate 1 gm Tablet PO (10:03)
[2022-12-15] MEDS: lidocaine 5% Patch 1 PATCH TOPICAL (10:03)
[2022-12-15] MEDS: polyethylene glycol 3350 Pkt 17 gm PO (10:04)
--- NOTE | 2022-12-15 11:52 | P.DS_ITS ---
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 Liver parameters otherwise without abnormality, Chahal negative, no suggestion of liver disease. CT scan chest abdomen pelvis obtained in ER as below. She came to ER due to intractable severe pain particularly over the anterolateral lower right chest and some lower back pain not responsive to morphine she has been taking at home including 30 mg extended release every 12 hours as well as every 6 hours MS IR 15 mg which did not take care of the pain at all. In the hospital with difficult to control pain, with Tylenol, lidocaine patch, requiring multiple/frequent IV Dilaudid medications and with fentanyl patch. Fentanyl patch increased to 75 mcg, IV Dilaudid uptitrated up to 2 mg doses as often as every 2 hours if needed, with telemetry and pulse oximetry monitoring, naloxone available if needed. She remained awake and alert. Pain difficult to control, gradually with better control with up titration of pain regimen. Today switched over to oral Dilaudid 6 mg and will be discharging with it every 4 hours as needed, continue fentanyl patch 75 mcg, lidocaine patch, Tylenol as needed, other conservative measures. Naloxone is provided at discharge. She understands risks of comorbidities with opioids, including constipation which has been an issue in the hospital and required intensive bowel regimen as well as an enema, had a bowel movement. Continue bowel regimen at discharge. Is referred to palliative care. During hospitalization underwent ultrasound-guided biopsy of the lesion in anterolateral right lower rib cage, sample sent to pathology. Please follow-up. Continue follow-up with oncology, arrangements for palliative radiation as per prior plans. In the hospital also noted intertrigo restarted on nystatin, also noted maculopapular rash on lower extremities which is now improving, unclear cause, possibly related to morphine, but could be secondary to other causes, chemotherapeutic agent or other medication. No eosinophilia. No mucosal lesions or bullae. She is referred to dermatology for follow-up as well. Please reassess for continued improvement. Physical Exam Narrative: Const:?? COMMON NORMALS: pa tient oriented x3 and alert? GENERAL APPEARANCE: coope rative? ORIENTATIO N/CONSCIOUSNESS: Y es awake HENMT:?? COMMON NORMALS: or opharynx normal Neck/C-Spine:?? COMMON NORMALS: no JVD Chest:?? OTHER: Tender R s chepe lower chest wa ll. Resp:?? COMMON NORMALS: no rmal respiratory e ffort and clear to auscultation bila terally? AUSCULTAT ION: clear to ausc ultation bilateral ly and rhonchi (Fe w) Cardio:?? COMMON NORMALS: no JVD, regular rhyt hm, S1 normal hear t sound present, S 2 normal heart marichuy nd present and No murmurs present (C ardio)? RHYTHM: re gular rhythm? HEAR T SOUNDS: S1 ericka l heart sound pres ent and S2 normal heart sound presen t GI:?? COMMON NORMALS: No rmal to inspection , nondistended, no rmoactive bowel so unds present, Soft to palpation and non-tender? PALPAT ION: Yes Soft to p alpation? OTHER: Soft nontender abd omen, including RU Q, negative Chahal . Extremity:?? COMMON NORMALS: no joint enlargement and no pedal johan a Neuro:?? COMMON NORMALS: pa tient oriented x3 and moves all extr emities? SENSORIUM /ORIENTATION: Yes alert Skin:?? GENERAL SKIN EXAM: ecchymosis? OTHER : Papular rash on lower extremities .? Now improving.? Dry skin doing be tter with zinc oxi de.? No open lesio ns, no drainage, n o bullae Discharge Data Studies Completed and Pending Completed Studies During Hospitalization Category Date Time Status CTA chest CT abdomen pelvis [CT angio chest w abd pel Cat Scan 12/10/22 15:10 Completed wo/w] Stat Pathology: Surgical [PTH] Routine Pth 12/12/22 13:44 Completed US biopsy bone superfic Routine Ultrasound 12/12/22 12:44 Completed Pending at discharge Category Date Time Status Complete Blood Count w/Auto AM LABS Lab 12/16/22 04:00 Ordered Comprehensive Metabolic Panel AM LABS Lab 12/16/22 04:00 Ordered Radiology Impressions Chest/Abdomen/Pelvis CT 12/10/22 15:10 IMPRESSION: 1. No CT findings of pulmonary embolus. 2. Mild emphysematous change with mild basilar atelectasis and peribronchial thickening centrally. 3. Other findings in this patient with known malignancy in the chest as noted above. IMPRESSION: 1. Multiple low-density foci within the liver including a larger low-density lesion of 3.5 cm within the left lobe suggestive of metastatic disease. 2. 1.5 cm low-density lesion superomedial aspect of the spleen could indicate metastatic focus or other splenic lesion. 3. Suggestion of tiny gallstone or cholelithiasis. 4. Colonic diverticulosis without CT findings of diverticulitis. 5. Soft tissue mass in association with an anterolateral lower right rib suggestive of metastatic disease involving this rib. This is at the level lateral to the liver. Biopsy Ultrasound 12/12/22 12:44 IMPRESSION: 1. Uncomplicated biopsy of the destructive lesion involving the RIGHT eighth rib. Soft tissue component of the rib lesion is biopsied. There is also evidence for destroyed rib. 2. Specimen placed in formalin and sent to pathology. Laboratory Results WBC 7.9 10^3/uL (4.0-10.0) 12/15/22 05:39 RBC 3.24 10^6/uL (4.1-5.3) L 12/15/22 05:39 Hgb 10.1 g/dL (11.5-15.3) L 12/15/22 05:39 Hct 33.1 % (37.0-47.0) L 12/15/22 05:39 MCV 102.2 fl (81-99) H 12/15/22 05:39 MCH 31.2 pg (28.0-34.0) 12/15/22 05:39 MCHC 30.5 g/dL (30.0-36.0) 12/15/22 05:39 RDW 15.5 % (12.1-15.1) H 12/15/22 05:39 Plt Count 147 10^3/cmm (130-400) 12/15/22 05:39 MPV 11.9 fL (7.4-10.4) H 12/15/22 05:39 Neut % (Auto) 79.7 % 12/15/22 05:39 Lymph % (Auto) 4.3 % 12/15/22 05:39 Weber % (Auto) 8.9 % 12/15/22 05:39 Eos % (Auto) 3.6 % 12/15/22 05:39 Baso % (Auto) 0.8 % 12/15/22 05:39 Neut # (Auto) 6.28 10^3/uL (1.8-7.7) 12/15/22 05:39 Lymph # (Auto) 0.3 10^3/uL (0.8-4.8) L 12/15/22 05:39 Weber # (Auto) 0.7 10^3/uL (0.2-0.9) 12/15/22 05:39 Eos # (Auto) 0.3 10^3/uL (0.0-0.8) 12/15/22 05:39 Baso # (Auto) 0.1 10^3/uL (0.0-0.1) 12/15/22 05:39 Nucleated RBC % (auto) 0 % 12/15/22 05:39 Nucleated RBCs # 0.0 /100WBC 12/15/22 05:39 Sodium 143 mmol/L (136-145) 12/15/22 05:39 Potassium 4.1 mmol/L (3.5-5.1) 12/15/22 05:39 Chloride 104 mmol/L (98-107) 12/15/22 05:39 Carbon Dioxide 29 mmol/L (22-29) 12/15/22 05:39 Anion Gap 14.1 (5-19) 12/15/22 05:39 BUN 8 mg/dL (8-23) 12/15/22 05:39 Creatinine 0.6 mg/dL (0.5-0.9) 12/15/22 05:39 GFR Calculation 98.8 mL/min (90-130) 12/15/22 05:39 Glucose 102 mg/dL (65-115) 12/15/22 05:39 Calculated Osmolality 295 mOsm/kg (285-295) 12/15/22 05:39 Calcium 9.4 mg/dL (8.5-10.5) 12/15/22 05:39 Total Bilirubin 0.2 mg/dL (0.15-1.2) 12/15/22 05:39 AST 31 U/L (0-32) 12/15/22 05:39 ALT 17 U/L (0-33) 12/15/22 05:39 Alkaline Phosphatase 99 U/L (35-105) 12/15/22 05:39 Creatine Kinase 66 U/L (26-192) 12/13/22 06:38 Total Protein 5.8 g/dL (6.6-8.7) L 12/15/22 05:39 Albumin 3.1 g/dL (3.5-5.2) L 12/15/22 05:39 Globulin 2.7 g/dL (1.3-4.6) 12/15/22 05:39 Urine Color Yellow (Yellow) 12/11/22 01:51 Urine Appearance Clear (CLEAR) 12/11/22 01:51 Urine pH 5 (5-7) 12/11/22 01:51 Ur Specific [place] 1.020 (1.005-1.030) 12/11/22 01:51 Urine Protein Neg (Negative) 12/11/22 01:51 Urine Glucose (UA) Norm (Normal) 12/11/22 01:51 Urine Ketones 1+ (Negative) H 12/11/22 01:51 Urine Blood Neg (Negative) 12/11/22 01:51 Urine Nitrate Negative (Negative) 12/11/22 01:51 Urine Bilirubin Neg (Negative) 12/11/22 01:51 Urine Urobilinogen Neg mg/dL (Negative) 12/11/22 01:51 Ur Leukocyte Esterase Trace (Negative) H 12/11/22 01:51 Urine RBC None /hpf (0-2) 12/11/22 01:51 Urine WBC 0-4 /hpf (0-5) H 12/11/22 01:51 Ur Squamous Epith Cells 0-4 /hpf (0-5) H 12/11/22 01:51 Amorphous Sediment Not Reportable 12/11/22 01:51 Urine Bacteria 1+ /hpf (NONE) H 12/11/22 01:51 Urine Mucus 1+ /hpf 12/11/22 01:51 Vitals Last Vital Signs Temp 98.0 F 12/15/22 07:32 Pulse 87 12/15/22 07:32 Resp 18 12/15/22 10:03 BP 111/68 12/15/22 07:32 Pulse Ox 95 12/15/22 07:32 O2 Del Method Room Air 12/15/22 07:23 O2 Flow Rate 2 12/15/22 08:00 Discharge Plan Discharge Patient Disposition: Home Condition: Stable Prescriptions: New naloxone 4 mg/actuation spray,non-aerosol 0.4 mg intranasal PRN PRN (Reason: Respiratory Rate < 8/Min) Qty: 2 0RF polyethylene glycol 3350 17 gram Powder In Packet 17 g PO BID Qty: 180 0RF zinc oxide 20 % Ointment 1 applic topical PRN PRN (Reason: Skin Protectant) Qty: 85 2RF nystatin 100,000 unit/gram Cream 1 applic topical BID 14 Days Qty: 30 0RF Milk of Magnesia 400 mg/5 mL Suspension 30 ml PO BEDTIME Qty: 3780 0RF acetaminophen 325 mg Tablet 650 mg PO Q6H PRN (Reason: Mild/Mod Pain Or Temp >/= 101) Qty: 90 0RF bisacodyl 10 mg Suppository 10 mg NH DAILY PRN (Reason: Constipation) Qty: 90 0RF lidocaine 5 % Adhesive Patch,Medicated 1 patch topical [id number] Qty: 14 0RF hydromorphone 4 mg tablet 4 mg PO Q4H PRN (Reason: pain) Qty: 84 0RF lidocaine 5 % adhesive patch,medicated 1 patch topical Q24H Qty: 30 0RF Rx Instructions: leave on most painful area for up to 12 hrs only Continued ipratropium-albuterol 0.5 mg-3 mg(2.5 mg base)/3 mL solution for nebulization 3 ml inhalation Q6H PRN (Reason: Respiratory Distress) (DME) nebulizer with supplies See Rx Instructions .Route .MEDSUPPLY Qty: 1 0RF Rx Instructions: As directed lorazepam 1 mg tablet 0.5 - 1 mg PO Q6H PRN (Reason: Severe Nausea) Qty: 30 3RF sucralfate [Carafate] 1 gram tablet 1 g PO BID pantoprazole 40 mg tablet,delayed release (DR/EC) 40 mg PO QAM Trelepako Ellipta 100-62.5-25 mcg blister with device 1 inh INHALATION DAILY PRN (Reason: Shortness Of Breath Or Wheezing) Compazine 10 mg Tablet 10 mg PO Q4H PRN (Reason: MILD NAUSEA) Laxative Pills 25 mg Tablet 50 mg PO QPM Reglan 10 mg Tablet 10 mg PO DAILY PRN (Reason: Nausea) lisinopril 20 mg tablet 20 mg PO QAM amlodipine 10 mg tablet 10 mg PO QAM buspirone 10 mg tablet 5 mg PO BEDTIME ergocalciferol (vitamin D2) 1,250 mcg (50,000 unit) capsule 50,000 unit PO Q7D Rx Instructions: on thursday levofloxacin 750 mg tablet 750 mg PO DAILY PRN (Reason: infection) zolpidem 10 mg tablet 5 mg PO BEDTIME Discontinued morphine 30 mg tablet extended release 30 mg PO Q12H 30 Days Qty: 60 0RF morphine 15 mg tablet 15 mg PO .Q4-6H PRN (Reason: pain) 30 Days Qty: 60 0RF oxycodone-acetaminophen 5-325 mg tablet 1 - 2 tab PO .EVERY 4-6 HOURS PRN (Reason: Pain) Rx Instructions: MEDICATION ON HOLD 12/10/22 Discharge Orders: Discharge Order (Routine); Ordered 12/15/22 Ordered By: Silverio Hopson Referrals: Dermatology [facility] [Provider Group] - 1 week (Sent message to clinic. faxed referral) Atilio Mckeon DO [Hospitalist] - 7-10 days (Referral sent by ) Juliana Montiel FNP [Primary Care Provider] - 12/18/22 3:30 pm (Please call Thursday to schedule a Hospital Discharge Appt due to clinic being closed at time of discharge. ) Discharge Diet: Low Cholesterol Patient Instructions: Acetaminophen (By mouth), Nystatin (On the skin), Fentanyl (Absorbed through the skin), Hydromorphone (By mouth), Polyethylene Glycol 3350 (By mouth), Magnesium Hydroxide (By mouth), Lidocaine Patch (On the skin), Bisacodyl (By mouth), Zinc Oxide (On the skin), Naloxone (Into the nose), Opioid Safety Activity Restrictions/Additional Instructions: Do not take opiate if you are sleepy or confused or if respiratory depression is noted and your breathing is shallow and infrequent. Take off fentanyl patch immediately. Please get your family about naloxone to be used in case of respiratory depression with opiate medications. Follow-up with your primary doctor and palliative care for reassessment of pain, continued optimization of pain control medications. Continue bowel regimen for constipation. Continue follow-up as previously for arrangements of radiation therapy, follow- up with oncology. Please discuss with oncology and with your primary doctor regarding rash on the lower extremities which has been improving, however, still of not clear origin. Possibility morphine, morphine is discontinued, but could be related to chemotherapy or one of your other medications. Please also follow-up with dermatology. In case of any new or concerning symptoms seek medical attention immediately. Please stop smoking. Follow-up with your primary doctor regarding tiny gallstones. Discharge Attestations Time Spent in Discharge Care*: greater than 30 min Status at Discharge: Cognitive status at discharge: cognitively intact , Behavioral status at discharge: cooperative , Quality Metrics Clinical Quality Measures [ No reported AMI, CVA or VTE this stay] Coding Level of Care Code Acute Code for Chg Fwd Diagnoses Intractable pain R52 Constipation K59.00 Goals of care, counseling/discussion Z71.89
--- NOTE | 2022-12-15 12:30 | PC.NURSE ---
Patient's port flushed and needle removed. Patient tolerated well. Patient is A&Ox3. Respirations even and non-labored on room air. Reviewed patient discharge with patient who verbalized understanding of how to take medications. Patient was wheel chaired to appointment at the cancer treatment center.
== END 2022-12-15 12:30 | disposition home or self-care (01) ==
LOC: ER 20:54 → MEDSURG 20:59
PROVIDERS: Radiology Diagnostic Radiology; Admitting Provider Internal Medicine; Emergency Provider Emergency Medicine; PCP Registered Nurse; Visit Provider Internal Medicine
DX: G89.3 Neoplasm related pain (acute) (chronic) (principal); C7B.8 Other secondary neuroendocrine tumors; Z79.891 Long term (current) use of opiate analgesic; C78.7 Secondary malignant neoplasm of liver and intrahepatic bile duct; F17.210 Nicotine dependence, cigarettes, uncomplicated; C34.90 Malignant neoplasm of unspecified part of unspecified bronchus or lung; K59.00 Constipation, unspecified; K57.90 Diverticulosis of intestine, part unspecified, without perforation or abscess without bleeding; I10 Essential (primary) hypertension; K80.20 Calculus of gallbladder without cholecystitis without obstruction; R21 Rash and other nonspecific skin eruption; Z79.899 Other long term (current) drug therapy; Z51.0 Encounter for antineoplastic radiation therapy; C34.12 Malignant neoplasm of upper lobe, left bronchus or lung
CPT/HCPCS: 20220; 36415; 71275; 74178; 76942; 77290; 77334; 80053; 81001; 82550; 85025; 88307; 88342; 93005; 94760; 94762; 96374; 96375; 96376; 99152; 99285; G0378; J1170; J2270; J2405; J7030; Q9967

== ENCOUNTER 2022-12-26 10:33 | Oncology outpatient (recurring) (ONCR) | payer MEDICARE, SELFPAY ==
--- NOTE | 2022-12-26 12:01 | ONCRAD TMN_ITS ---
Radiation Oncology Weekly Treatment Management/Treatment Summary Patient: Indigo Rosenberg MR#: [id number] : 1950 Attending Physician: Pranav Mas Date of Service: 12/26/2022 Referring Physician(s) : Huong Carmichael MD Diagnosis: C79.51 - Secondary malignant neoplasm of bone, Diagnosed 11/17/2022 (Active) C34.10 - Malignant neoplasm of upper lobe, unspecified bronchus or lung, Diagnosed 07/29/2022 (Active) Stage IIIB, T3, N2, M0 Radiotherapy to date: Course: Bone Mets 2022, Treatment Site: 8th Rib Met, Ref. ID: [id number], Energy: 15X, Dose/Fx (cGy): 400, #Fx: 5 / 5, Dose Correction (cGy): 0, Total Dose (cGy): 2,000, Start Date: 12/22/2022, End Date: 12/26/2022, Elapsed Days: 4 Reason for visit: The patient is being seen today as part of their regularly scheduled weekly on treatment visits to assess for acute toxicities from radiotherapy. Review of Systems: She feels very poorly overall and appears to be in decline. She is on O2 per nasal cannula. She complains of pain at multiple sites. The sharp rib pain has improved. However, she states she is in pain almost all the time with the pain occurring in multiple sites. Vital Signs: Performed on 12/26/2022 10:41 AM BMI - 27.125 kg/m2 (high), Height - 65 in, Weight - 163.0 lbs, Temperature - 96.7 f, Pulse - 87 /min, Respiration - 16 /min, O2 Sat - 93 % (low), Pain - 8, Fatigue - 4 and BP - 112/ 62 mm(hg)(/low). Physical Exam: She has moderate tenderness of the lumbar spine, sacrum, and SI joints. No tenderness of the upper spine. I did not palpate the treated rib because she continues to have some pain in the area though it is not as sharp as when treatment began. Imaging: Radiation therapy imaging related to accurate target localization (i.e. KV, MV and CBCT) was reviewed. Appropriate changes, if any, were made to ensure treatment accuracy. Plan: Special laboratory studies have been ordered in order to better define systemic treatment options. Those studies are pending. She may need palliative radiation to the lumbosacral spine at some point. She was seen by Dr. Boyd today and he is doubling the dose of her fentanyl patch. She has Dilaudid for breakthrough pain. Signed by: Pranav Mas 12/26/2022 12:00:43 PM
== END 2023-01-05 23:59 | disposition home or self-care (01) ==
PROVIDERS: Absent Provider Internal Medicine Hematology & Oncology; PCP Registered Nurse; Visit Provider Specialist
DX: Z51.0 Encounter for antineoplastic radiation therapy (principal); C34.12 Malignant neoplasm of upper lobe, left bronchus or lung; C77.8 Secondary and unspecified malignant neoplasm of lymph nodes of multiple regions; C79.51 Secondary malignant neoplasm of bone; Z79.899 Other long term (current) drug therapy; Z95.828 Presence of other vascular implants and grafts; Z79.891 Long term (current) use of opiate analgesic; G89.3 Neoplasm related pain (acute) (chronic)
CPT/HCPCS: 77290; 77295; 77300; 77334; 77336; 77387; 77412; 99024; 99214